=== PATIENT | male | born 1970 | race Caucasian/White ===

== ENCOUNTER → 2023-12-05 | Emergency (ER) | payer OTHER ==
--- OUTSIDE RECORDS SUMMARY | 2023-12-05 00:35 | XMS REPORT | Continuity of Care Document ---
Author Name Unknown Address [address] [facility] [address]. [address] [place] [address] [facility] thconnect Address [address] [facility]. [address] [place] [address] Care Team Providers Care Assisted Living Executive Director Name Role Phone Mireya Cuevas Primary Care Physician [phone] KEYONA PHILLIPS Attending Clinician Unavailable KIRSTY ROSA Attending Clinician Unavailable Sarah Rosa MD Attending Clinician [phone] SARAH ROSA Attending Clinician Unavailable Lisandra Al Attending Clinician [phone] Doctor Unassigned, Stewart Attending Clinician [facility] nav[facility], Sleep Attending Clinician Unavailable Inez Cho MD Attending Clinician [phone] INEZ CHO Attending Clinician Unavailable Cam Gould Attending Clinician [phone] [facility] Attending Clinician Unavailable CAM ARIAS Attending Clinician Unavailable MANOJ ARMENDARIZ Attending Clinician UnavailKirsty Stallings MD Attending Clinician [phone] LISANDRA BREWSTER Attending Clinician Unavailable Faculty, Pulmonary Attending Clinician UnavailANTONIO Farris Attending Clinician Unavailable Jeferson Ventura MD Attending Clinician [phone] Nitesh MATHEW, Antonio Attending Clinician [phone] Kraig FREEMAN, Phuong Booth Attending Clinician [phone] JOS WHELAN Attending Clinician Aye Whelan MD, Jos Stevens Attending Clinician + Sj MATHEW, Nicolás Brown Attending Clinician [phone] [facility]monary [facility] - Clear Attending Clini oumou [facility] Pulmonary Attending Clinician [phone] NANCY MOYER Attending Clinician Unavaila Nancy Blankenship Attending Clinician [phone] Elicia Buckley Attending Clinician [phone] Nirav Mann MD Attending Clinician [phone] NICOLÁS GUSTAFSON Attending Clinician Unavail able Jacqueline Baum RN Attending Clinician Unavailable NIRAV MANN Attending Clinician Unavailghulam Irene MD, Braeden Dan Attending Clinician [phone] Juan Rincon MD, Holli Attending Clinician [phone] Romeo MATHEW, Vicki Attending Clinician [phone] Alan MATHEW, Keyona Attending Clinician Unavailab tristan Tong MD, Flori Abbott Attending Clinician [phone] ELICIA BALLARD Attending Clinician Unavailabl KAYLA Marcum Attending Clinician Unavailable KAYLA WHEELER Attending Clinician Unavailable GERARDO LAWRENCEIN Trav Attending Clinician Unavailable Oziel Carreon Attending Clinician [phone] JAMARI LAUREN Attending Clinician Unavailable Only, [facility] Test Attending Clinician Unavailable Jamari Lauren MD Attending Clinician [phone] Fatuma Borges RN Attending Clinician Unavailable Tressa Decker RN Attending Clinician [phone] CATHERINE RANGEL Attending Clinician Unavail able Inge Norris DO Attending Clinician Felicia MOONEY, Catherine Samano Attending Clinician [phone] Trell Calles MD Attending Clinician [phone] INGE NORRIS Attending Clinician Unavailable Rosalba MATHEW, Chema Attending Clinician [phone] Only, Pcp [address] Test Attending Clinician Lis vailable JONATHAN SHANKS Attending Clinician Unavailable Dimitris FAMILY LAW ATTORNEYJonathan Attending Clinician [phone] Janice RN, Althea P Attending Clinician Unavaila ble RAMIRO CROSS Attending Clinician Unavailab MANOJ Eisenberg Attending Clinician Unavailghulam Evans MD, Padmini Ontiveros Attending Clinician [phone] P[facility]-Lab Attending Clinician Unavailable AIDA PLAZA Attending Clinician Unavailab tristan Tapia DO, Julio Schwarz Attending Clinician [phone] Nurse, John [facility] Attending Massimo coello Unavailable Samuel Perez MD Attending Clinician [phone] SAMUEL PEREZ Attending Clinician Unavailable Christopher APODACA, Vivian Attending Clinician Unavailable Only, Pcp Test Attending Clinician Unavailable FLORI TONG Attending Clinician Unavailable Only, [facility] Test Attending Clinician Unavailable MACY PROCTOR Attending Clinician Unavailable Macy Proctor MD Attending Clinician [phone] Skyler Prieto MD Attending Clinician [phone] SKYLER PRIETO Attending Clinician Unavailable Annabelle Rabago LCSW Attending Clinician [phone] KEYONA PHILLIPS Admitting Clinician Unavailable KIRSTY ROSA Admitting Clinician Unavailable NIRAV MANN Admitting Clinician UnavailNirav Malloy MD Admitting Clinician [phone] OZIEL LAWRENCE Admitting Clinician Unavailable INGE NORRIS Admitting Clinician Unavailable NANCY MOYER Admitting Clinician Unavaila alma Payers Payer Name Policy Type Policy Number Effective Date Expirati on Date Source [facility] [id number] 2016 00:00:00 Problems Condition Name Condition Details Condition Category Status Onset Date Resolution Date Last Treatment Date Treating Clinician Comments Source Acute respirator y distress Acute respirator y distress Disease Active 2021-10 0 00:[facility] STEMI (ST elevation myocardial infarction ) STEMI (ST elevation myocardial infarction ) Disease Active 01-08 00:00: 00 [facility] Morbid obesity with body mass index of 40.0-49.9 Morbid obesity with body mass index of 40.0-49.9 Disease Active 01-08 00:00: 00 [facility] Posterior subcapsula r age-relate d cataract of left eye Posterior subcapsula r age-relate d cataract of left eye Disease Active 04-17 00:00: 00 Overview: Formattin g of this note might be different from the original. Added automatic ally from request for surgery [id number] [facility] Posterior subcapsula r age-relate d cataract of both eyes Posterior subcapsula r age-relate d cataract of both eyes Disease Active 03-06 00:00: 00 Overview: Formattin g of this note might be different from the original. Added automatic ally from request for surgery [id number] [facility] Asthma exacerbati on Asthma exacerbati on Disease Active 2016-10 00:00: 00 [facility] Benign essential HTN Benign essential HTN Disease Active 02-24 00:00: 00 [facility] ROBSON (obstructi ve sleep apnea) ROBSON (obstructi ve sleep apnea) Disease Active 02-24 00:00: 00 [facility] Tobacco user Tobacco user Disease Active 02-24 00:00: 00 [facility] Allergies, Adverse Reactions, Alerts Allergy Name Allergy Type Status Severity Reaction(s) Onset Date Inactive Date Treating Clinician Comments Source NO KNOWN ALLERGIE S Drug Class Active [facility] Social History Social Habit Start Date Stop Date Quantity Comments Source [facility] intake 2023-09-27 00:00:00 2023-09-27 00:00:00 .57 /d [facility] History of Social function 2023-08-16 00:00:2023-08-16 00:00:00 [facility] Exposure to SARS-CoV-2 (event) 2022-07-24 00:00:00 2022-08-03 16:20:00 Not sure [facility] History SDOH Financial 2022-07-21 00:00:00 2022-07-21 00:00:00 1 [facility] History SDOH Food Worry 2022-07-21 00:00:00 2022-07-21 00:00:00 3 [facility] History SDOH Food Scarcity 2022-07-21 00:00:00 2022-07-21 00:00:00 1 [facility] History SDOH Transport Med 2022-07-21 00:00:00 2022-07-21 00:00:00 2 [facility] History SDOH Transport Non-Med 2022-07-21 00:00:00 2022-07-21 00:00:00 2 [facility] Cigarettes smoked current (pack per day) - Reported 2022-06-23 00:00:00 2022-06-23 00:00:00 [facility] Tobacco use and exposure 2022-06-23 00:00:00 2022-06-23 00:00:00 Smokeless tobacco non-user [facility] History of tobacco use 2017-10-04 00:00:00 Cigarette Smoker [facility] Sex Assigned At 1970 00:00:00 1970 00:00:00 [facility] Smoking Status Start Date Stop Date Source Ex-smoker 2022-06-23 00:00:00 2022-06-23 00:00:00 [facility] Medications Ordered Medication Name Filled Medication Name Start Date Stop Date Current Medication? Ordering Clinician Indication Dosage Frequency Signature (SIG) Comments Components Source amLODIPine 10 mg tablet 2022-10 00:00: 00 Yes [id number] 10mg Take 1 tablet by mouth in the morning. [facility] amLODIPine 10 mg tablet 2022-10 00:00: 00 Yes [id number] 10mg Take 1 tablet by mouth in the morning. [facility] amLODIPine 10 mg tablet 2022-10 00:00: 00 Yes [id number] 10mg Take 1 tablet by mouth in the morning. [facility] amLODIPine 10 mg tablet 2022-10 00:00: 00 Yes [id number] 10mg Take 1 tablet by mouth in the morning. [facility] amLODIPine 10 mg tablet 2022-10 00:00: 00 Yes [id number] 10mg Take 1 tablet by mouth in the morning. [facility] amLODIPine 10 mg tablet 2022-10 00:00: 00 Yes [id number] 10mg Take 1 tablet by mouth in the morning. [facility] amLODIPine 10 mg tablet 2022-10 00:00: 00 Yes [id number] 10mg Take 1 tablet by mouth in the morning. [facility] amLODIPine 10 mg tablet 2022-10 00:00: 00 Yes [id number] 10mg Take 1 tablet by mouth in the morning. [facility] amLODIPine 10 mg tablet 2022-10 00:00: 00 Yes [id number] 10mg Take 1 tablet by mouth in the morning. [facility] amLODIPine 10 mg tablet 2022-10 00:00: 00 Yes [id number] 10mg Take 1 tablet by mouth in the morning. [facility] amLODIPine 10 mg tablet 2022-10 00:00: 00 Yes [id number] 10mg Take 1 tablet by mouth in the morning. [facility] amLODIPine 5 mg tablet 2022-10 00:00: 00 Yes [id number] 5mg Take 1 tablet by mouth in the morning and 1 tablet in the evening. [facility] Blood Pressure Kit-Extra Large Kit 2022-10 00:00: 00 Yes [id number] Use as directed [facility] furosemide 20 mg tablet 2022-10 00:00: 00 Yes [id number] 20mg Take 1 tablet by mouth every morning and evening. [facility] amLODIPine 5 mg tablet 2022-10 00:00: 00 Yes [id number] 5mg Take 1 tablet by mouth in the morning and 1 tablet in the evening. [facility] Blood Pressure Kit-Extra Large Kit 2022-1018 00:00: 00 Yes [id number] Use as directed [facility] furosemide 20 mg tablet 2022-1 18 00:00: 00 Yes [id number] 20mg Take 1 tablet by mouth every morning and evening. [facility] Blood Pressure Kit-Extra Large Kit 2022-1018 00:00: 00 Yes [id number] Use as directed [facility] furosemide 20 mg tablet 2022-18 00:00: 00 Yes [id number] 20mg Take 1 tablet by mouth every morning and evening. [facility] Blood Pressure Kit-Extra Large Kit 2022-11-28 00:00: 00 Yes [id number] Use as directed [facility] furosemide 20 mg tablet 2022-10 00:00: 00 Yes [id number] 20mg Take 1 tablet by mouth every morning and evening. [facility] Blood Pressure Kit-Extra Large Kit 2022-11-28 00:00: 00 Yes [id number] Use as directed [facility] furosemide 20 mg tablet 2022-11-28 00:00: 00 Yes [id number] 20mg Take 1 tablet by mouth every morning and evening. [facility] Blood Pressure Kit-Extra Large Kit 2022-10 00:00: 00 Yes [id number] Use as directed [facility] furosemide 20 mg tablet 2022-1018 00:00: 00 Yes [id number] 20mg Take 1 tablet by mouth every morning and evening. [facility] Blood Pressure Kit-Extra Large Kit 2022-18 00:00: 00 Yes [id number] Use as directed [facility] furosemide 20 mg tablet 2022-1 18 00:00: 00 Yes [id number] 20mg Take 1 tablet by mouth every morning and evening. [facility] Blood Pressure Kit-Extra Large Kit 2022-18 00:00: 00 Yes [id number] Use as directed [facility] furosemide 20 mg tablet 2022-1 18 00:00: 00 Yes [id number] 20mg Take 1 tablet by mouth every morning and evening. [facility] Blood Pressure Kit-Extra Large Kit 2022-1 18 00:00: 00 Yes [id number] Use as directed [facility] furosemide 20 mg tablet 2022-1 18 00:00: 00 Yes [id number] 20mg Take 1 tablet by mouth every morning and evening. [facility] Blood Pressure Kit-Extra Large Kit 2022-18 00:00: 00 Yes [id number] Use as directed [facility] furosemide 20 mg tablet 2022-11-28 00:00: 00 Yes [id number] 20mg Take 1 tablet by mouth every morning and evening. [facility] Blood Pressure Kit-Extra Large Kit 2022-11-28 00:00: 00 Yes [id number] Use as directed [facility] furosemide 20 mg tablet 2022-11-28 00:00: 00 Yes [id number] 20mg Take 1 tablet by mouth every morning and evening. [facility] Blood Pressure Kit-Extra Large Kit 2022-11-28 00:00: 00 Yes [id number] Use as directed [facility] furosemide 20 mg tablet 2022-11-28 00:00: 00 Yes [id number] 20mg Take 1 tablet by mouth every morning and evening. [facility] 20[facility]-10 00:00: 00 Yes [id number] Use as directed [facility] tablet 2022-11-28 00:00: 00 Yes [id number] 20mg Take 1 tablet by mouth every morning and evening. [facility] Blood Pressure Kit-Extra Large Kit 2022-11-28 00:00: 00 Yes [id number] Use as directed [facility] furosemide 20 mg tablet 2022-18 00:00: 00 Yes [id number] 20mg Take 1 tablet by mouth every morning and evening. [facility] Blood Pressure Kit-Extra Large Kit 2022-18 00:00: 00 Yes [id number] Use as directed [facility] furosemide 20 mg tablet 2022-18 00:00: 00 Yes [id number] 20mg Take 1 tablet by mouth every morning and evening. [facility] Blood Pressure Kit-Extra Large Kit 2022-10 00:00: 00 Yes [id number] Use as directed [facility] furosemide 20 mg tablet 2022-10 00:00: 00 Yes [id number] 20mg Take 1 tablet by mouth every morning and evening. [facility] amLODIPine 5 mg tablet 2022-10 00:00: 00 09-29 00:00 :00 No [id number] 5mg Take 1 tablet by mouth in the morning and 1 tablet in the evening. [facility] amLODIPine 5 mg tablet 2022-10 00:00: 00 09-29 00:00 :00 No [id number] 5mg Take 1 tablet by mouth in the morning and 1 tablet in the evening. [facility] amLODIPine 5 mg tablet 2022-10 00:00: 00 09-29 00:00 :00 No [id number] 5mg Take 1 tablet by mouth in the morning and 1 tablet in the evening. [facility] perflutren lipid microsphere s (DEFINITY) injection 2 mL 2022-10 20:45: 00 09-09 20:39 :00 No [id number] 2mL 2 mL, IV Push, ONCE, 1 dose, On Aleyda 09/09/23 at 1445, Routine [facility] amLODIPine 10 mg tablet 2022-10 00:00: 00 Yes [id number] 5mg Take 0.5 tablets by mouth in the morning and 0.5 tablets in the evening. [facility] amLODIPine 10 mg tablet 2022-10 00:00: 00 Yes [id number] 5mg Take 0.5 tablets by mouth in the morning and 0.5 tablets in the evening. [facility] amLODIPine 10 mg tablet 2022-10 00:00: 00 Yes [id number] 5mg Take 0.5 tablets by mouth in the morning and 0.5 tablets in the evening. [facility] amLODIPine 10 mg tablet 2022-10 00:00: 00 Yes [id number] 5mg Take 0.5 tablets by mouth in the morning and 0.5 tablets in the evening. [facility] amLODIPine 10 mg tablet 2022-10 00:00: 00 Yes [id number] 5mg Take 0.5 tablets by mouth in the morning and 0.5 tablets in the evening. [facility] amLODIPine 10 mg tablet 2022-10 00:00: 00 Yes [id number] 5mg Take 0.5 tablets by mouth in the morning and 0.5 tablets in the evening. [facility] amLODIPine 10 mg tablet 2022-10 00:00: 00 Yes [id number] 5mg Take 0.5 tablets by mouth in the morning and 0.5 tablets in the evening. [facility] amLODIPine 10 mg tablet 2022-10 00:00: 00 09-27 00:00 :00 No [id number] 5mg Take 0.5 tablets by mouth in the morning and 0.5 tablets in the evening. [facility] amLODIPine 10 mg tablet 2022-10 00:00: 00 09-27 00:00 :00 No [id number] 5mg Take 0.5 tablets by mouth in the morning and 0.5 tablets in the evening. [facility] carvediloL 25 mg tablet 2022-10 00:00: 00 Yes [id number] 25mg Take 1 tablet by mouth in the morning and 1 tablet in the evening. Take with meals. [facility] furosemide 20 mg tablet 2022-10 00:00: 00 Yes [id number] 20mg Take 1 tablet by mouth every morning and evening. [facility] clopidogreL (PLAVIX) 75 mg tablet 2022-10 00:00: 00 Yes [id number] 75mg Take 1 tablet by mouth in the morning. [facility] aspirin 81 mg EC tablet 2022-10 00:00: 00 Yes [id number] 81mg Take 1 tablet by mouth in the morning. [facility] carvediloL 25 mg tablet 2022-10 00:00: 00 Yes [id number] 25mg Take 1 tablet by mouth in the morning and 1 tablet in the evening. Take with meals. [facility] furosemide 20 mg tablet 2022-10 00:00: 00 Yes [id number] 20mg Take 1 tablet by mouth every morning and evening. [facility] clopidogreL (PLAVIX) 75 mg tablet 2022-10 00:00: 00 Yes [id number] 75mg Take 1 tablet by mouth in the morning. [facility] aspirin 81 mg EC tablet 2022-10 00:00: 00 Yes [id number] 81mg Take 1 tablet by mouth in the morning. [facility] carvediloL 25 mg tablet 2022-10 00:00: 00 Yes [id number] 25mg Take 1 tablet by mouth in the morning and 1 tablet in the evening. Take with meals. [facility] furosemide 20 mg tablet 2022-10 00:00: 00 Yes [id number] 20mg Take 1 tablet by mouth every morning and evening. [facility] clopidogreL (PLAVIX) 75 mg tablet 2022-10 00:00: 00 Yes [id number] 75mg Take 1 tablet by mouth in the morning. [facility] aspirin 81 mg EC tablet 2022-10 00:00: 00 Yes [id number] 81mg Take 1 tablet by mouth in the morning. [facility] carvediloL 25 mg tablet 2022-10 00:00: 00 Yes [id number] 25mg Take 1 tablet by mouth in the morning and 1 tablet in the evening. Take with meals. [facility] furosemide 20 mg tablet 2022-10 00:00: 00 Yes [id number] 20mg Take 1 tablet by mouth every morning and evening. [facility] clopidogreL (PLAVIX) 75 mg tablet 2022-10 00:00: 00 Yes [id number] 75mg Take 1 tablet by mouth in the morning. [facility] aspirin 81 mg EC tablet 2022-10 00:00: 00 Yes [id number] 81mg Take 1 tablet by mouth in the morning. [facility] carvediloL 25 mg tablet 2022-10 00:00: 00 Yes [id number] 25mg Take 1 tablet by mouth in the morning and 1 tablet in the evening. Take with meals. [facility] furosemide 20 mg tablet 2022-10 00:00: 00 Yes [id number] 20mg Take 1 tablet by mouth every morning and evening. [facility] clopidogreL (PLAVIX) 75 mg tablet 2022-10 00:00: 00 Yes [id number] 75mg Take 1 tablet by mouth in the morning. [facility] aspirin 81 mg EC tablet 2022-10 00:00: 00 Yes [id number] 81mg Take 1 tablet by mouth in the morning. [facility] carvediloL 25 mg tablet 2022-10 00:00: 00 Yes [id number] 25mg Take 1 tablet by mouth in the morning and 1 tablet in the evening. Take with meals. [facility] furosemide 20 mg tablet 2022-10 00:00: 00 Yes [id number] 20mg Take 1 tablet by mouth every morning and evening. [facility] clopidogreL (PLAVIX) 75 mg tablet 2022-10 00:00: 00 Yes [id number] 75mg Take 1 tablet by mouth in the morning. [facility] aspirin 81 mg EC tablet 2022-10 00:00: 00 Yes [id number] 81mg Take 1 tablet by mouth in the morning. [facility] carvediloL 25 mg tablet 2022-10 00:00: 00 Yes [id number] 25mg Take 1 tablet by mouth in the morning and 1 tablet in the evening. Take with meals. [facility] furosemide 20 mg tablet 2022-10 00:00: 00 Yes [id number] 20mg Take 1 tablet by mouth every morning and evening. [facility] clopidogreL (PLAVIX) 75 mg tablet 2022-10 00:00: 00 Yes [id number] 75mg Take 1 tablet by mouth in the morning. [facility] aspirin 81 mg EC tablet 2022-10 00:00: 00 Yes [id number] 81mg Take 1 tablet by mouth in the morning. [facility] carvediloL 25 mg tablet 2022-10 00:00: 00 Yes [id number] 25mg Take 1 tablet by mouth in the morning and 1 tablet in the evening. Take with meals. [facility] furosemide 20 mg tablet 2022-10 00:00: 00 Yes [id number] 20mg Take 1 tablet by mouth every morning and evening. [facility] clopidogreL (PLAVIX) 75 mg tablet 2022-10 00:00: 00 Yes [id number] 75mg Take 1 tablet by mouth in the morning. [facility] aspirin 81 mg EC tablet 2022-10 00:00: 00 Yes [id number] 81mg Take 1 tablet by mouth in the morning. [facility] carvediloL 25 mg tablet 2022-10 00:00: 00 Yes [id number] 25mg Take 1 tablet by mouth in the morning and 1 tablet in the evening. Take with meals. [facility] furosemide 20 mg tablet 2022-10 00:00: 00 Yes [id number] 20mg Take 1 tablet by mouth every morning and evening. [facility] clopidogreL (PLAVIX) 75 mg tablet 2022-10 00:00: 00 Yes [id number] 75mg Take 1 tablet by mouth in the morning. [facility] aspirin 81 mg EC tablet 2022-10 00:00: 00 Yes [id number] 81mg Take 1 tablet by mouth in the morning. [facility] carvediloL 25 mg tablet 2022-10 00:00: 00 Yes [id number] 25mg Take 1 tablet by mouth in the morning and 1 tablet in the evening. Take with meals. [facility] furosemide 20 mg tablet 2022-10 00:00: 00 Yes [id number] 20mg Take 1 tablet by mouth every morning and evening. [facility] clopidogreL (PLAVIX) 75 mg tablet 2022-10 00:00: 00 Yes [id number] 75mg Take 1 tablet by mouth in the morning. [facility] aspirin 81 mg EC tablet 2022-10 00:00: 00 Yes [id number] 81mg Take 1 tablet by mouth in the morning. [facility] carvediloL 25 mg tablet 2022-10 00:00: 00 Yes [id number] 25mg Take 1 tablet by mouth in the morning and 1 tablet in the evening. Take with meals. [facility] furosemide 20 mg tablet 2022-10 00:00: 00 Yes [id number] 20mg Take 1 tablet by mouth every morning and evening. [facility] clopidogreL (PLAVIX) 75 mg tablet 2022-10 00:00: 00 Yes [id number] 75mg Take 1 tablet by mouth in the morning. [facility] aspirin 81 mg EC tablet 2022-10 00:00: 00 Yes [id number] 81mg Take 1 tablet by mouth in the morning. [facility] carvediloL 25 mg tablet 2022-10 00:00: 00 Yes [id number] 25mg Take 1 tablet by mouth in the morning and 1 tablet in the evening. Take with meals. [facility] clopidogreL (PLAVIX) 75 mg tablet 2022-10 00:00: 00 Yes [id number] 75mg Take 1 tablet by mouth in the morning. [facility] aspirin 81 mg EC tablet 2022-10 00:00: 00 Yes [id number] 81mg Take 1 tablet by mouth in the morning. [facility] carvediloL 25 mg tablet 2022-10 00:00: 00 Yes [id number] 25mg Take 1 tablet by mouth in the morning and 1 tablet in the evening. Take with meals. [facility] clopidogreL (PLAVIX) 75 mg tablet 2022-10 00:00: 00 Yes [id number] 75mg Take 1 tablet by mouth in the morning. [facility] aspirin 81 mg EC tablet 2022-10 00:00: 00 Yes [id number] 81mg Take 1 tablet by mouth in the morning. [facility] carvediloL 25 mg tablet 2022-10 00:00: 00 Yes [id number] 25mg Take 1 tablet by mouth in the morning and 1 tablet in the evening. Take with meals. [facility] clopidogreL (PLAVIX) 75 mg tablet 2022-10 00:00: 00 Yes [id number] 75mg Take 1 tablet by mouth in the morning. [facility] aspirin 81 mg EC tablet 2022-10 00:00: 00 Yes [id number] 81mg Take 1 tablet by mouth in the morning. [facility] carvediloL 25 mg tablet 2022-10 00:00: 00 Yes [id number] 25mg Take 1 tablet by mouth in the morning and 1 tablet in the evening. Take with meals. [facility] clopidogreL (PLAVIX) 75 mg tablet 2022-10 00:00: 00 Yes [id number] 75mg Take 1 tablet by mouth in the morning. [facility] aspirin 81 mg EC tablet 2022-10 00:00: 00 Yes [id number] 81mg Take 1 tablet by mouth in the morning. [facility] carvediloL 25 mg tablet 2022-10 00:00: 00 Yes [id number] 25mg Take 1 tablet by mouth in the morning and 1 tablet in the evening. Take with meals. [facility] clopidogreL (PLAVIX) 75 mg tablet 2022-10 00:00: 00 Yes [id number] 75mg Take 1 tablet by mouth in the morning. [facility] aspirin 81 mg EC tablet 2022-10 00:00: 00 Yes [id number] 81mg Take 1 tablet by mouth in the morning. [facility] carvediloL 25 mg tablet 2022-10 00:00: 00 Yes [id number] 25mg Take 1 tablet by mouth in the morning and 1 tablet in the evening. Take with meals. [facility] clopidogreL (PLAVIX) 75 mg tablet 2022-10 00:00: 00 Yes [id number] 75mg Take 1 tablet by mouth in the morning. [facility] aspirin 81 mg EC tablet 2022-10 00:00: 00 Yes [id number] 81mg Take 1 tablet by mouth in the morning. [facility] carvediloL 25 mg tablet 2022-10 00:00: 00 Yes [id number] 25mg Take 1 tablet by mouth in the morning and 1 tablet in the evening. Take with meals. [facility] clopidogreL (PLAVIX) 75 mg tablet 2022-10 00:00: 00 Yes [id number] 75mg Take 1 tablet by mouth in the morning. [facility] aspirin 81 mg EC tablet 2022-10 00:00: 00 Yes [id number] 81mg Take 1 tablet by mouth in the morning. [facility] carvediloL 25 mg tablet 2022-10 00:00: 00 Yes [id number] 25mg Take 1 tablet by mouth in the morning and 1 tablet in the evening. Take with meals. [facility] clopidogreL (PLAVIX) 75 mg tablet 2022-10 00:00: 00 Yes [id number] 75mg Take 1 tablet by mouth in the morning. [facility] aspirin 81 mg EC tablet 2022-10 00:00: 00 Yes [id number] 81mg Take 1 tablet by mouth in the morning. [facility] carvediloL 25 mg tablet 2022-10 00:00: 00 Yes [id number] 25mg Take 1 tablet by mouth in the morning and 1 tablet in the evening. Take with meals. [facility] clopidogreL (PLAVIX) 75 mg tablet 2022-10 00:00: 00 Yes [id number] 75mg Take 1 tablet by mouth in the morning. [facility] aspirin 81 mg EC tablet 2022-10 00:00: 00 Yes [id number] 81mg Take 1 tablet by mouth in the morning. [facility] carvediloL 25 mg tablet 2022-10 00:00: 00 Yes [id number] 25mg Take 1 tablet by mouth in the morning and 1 tablet in the evening. Take with meals. [facility] clopidogreL (PLAVIX) 75 mg tablet 2022-10 00:00: 00 Yes [id number] 75mg Take 1 tablet by mouth in the morning. [facility] aspirin 81 mg EC tablet 2022-10 00:00: 00 Yes [id number] 81mg Take 1 tablet by mouth in the morning. [facility] carvediloL 25 mg tablet 2022-10 00:00: 00 Yes [id number] 25mg Take 1 tablet by mouth in the morning and 1 tablet in the evening. Take with meals. [facility] clopidogreL (PLAVIX) 75 mg tablet 2022-10 00:00: 00 Yes [id number] 75mg Take 1 tablet by mouth in the morning. [facility] aspirin 81 mg EC tablet 2022-10 00:00: 00 Yes [id number] 81mg Take 1 tablet by mouth in the morning. [facility] carvediloL 25 mg tablet 2022-10 00:00: 00 Yes [id number] 25mg Take 1 tablet by mouth in the morning and 1 tablet in the evening. Take with meals. [facility] clopidogreL (PLAVIX) 75 mg tablet 2022-10 00:00: 00 Yes [id number] 75mg Take 1 tablet by mouth in the morning. [facility] aspirin 81 mg EC tablet 2022-10 00:00: 00 Yes [id number] 81mg Take 1 tablet by mouth in the morning. [facility] carvediloL 25 mg tablet 2022-10 00:00: 00 Yes [id number] 25mg Take 1 tablet by mouth in the morning and 1 tablet in the evening. Take with meals. [facility] clopidogreL (PLAVIX) 75 mg tablet 2022-10 00:00: 00 Yes [id number] 75mg Take 1 tablet by mouth in the morning. [facility] aspirin 81 mg EC tablet 2022-10 00:00: 00 Yes [id number] 81mg Take 1 tablet by mouth in the morning. [facility] carvediloL 25 mg tablet 2022-10 00:00: 00 Yes [id number] 25mg Take 1 tablet by mouth in the morning and 1 tablet in the evening. Take with meals. [facility] clopidogreL (PLAVIX) 75 mg tablet 2022-10 00:00: 00 Yes [id number] 75mg Take 1 tablet by mouth in the morning. [facility] aspirin 81 mg EC tablet 2022-10 00:00: 00 Yes [id number] 81mg Take 1 tablet by mouth in the morning. [facility] carvediloL 25 mg tablet 2022-10 00:00: 00 Yes [id number] 25mg Take 1 tablet by mouth in the morning and 1 tablet in the evening. Take with meals. [facility] clopidogreL (PLAVIX) 75 mg tablet 2022-10 00:00: 00 Yes [id number] 75mg Take 1 tablet by mouth in the morning. [facility] aspirin 81 mg EC tablet 2022-10 00:00: 00 Yes [id number] 81mg Take 1 tablet by mouth in the morning. [facility] carvediloL 25 mg tablet 2022-10 00:00: 00 Yes [id number] 25mg Take 1 tablet by mouth in the morning and 1 tablet in the evening. Take with meals. [facility] clopidogreL (PLAVIX) 75 mg tablet 2022-10 00:00: 00 Yes [id number] 75mg Take 1 tablet by mouth in the morning. [facility] aspirin 81 mg EC tablet 2022-10 00:00: 00 Yes [id number] 81mg Take 1 tablet by mouth in the morning. [facility] furosemide 20 mg tablet 2022-10 00:00: 00 09-27 00:00 :00 No [id number] 20mg Take 1 tablet by mouth every morning and evening. [facility] furosemide 20 mg tablet 2022-10 00:00: 00 09-27 00:00 :00 No [id number] 20mg Take 1 tablet by mouth every morning and evening. [facility] dextran 70/hypromel lose (ARTIFICIAL TEARS, PF, OPHTHALMIC) 2022-10 14:25: 43 08-13 00:00 :[address] in each eye as needed. [facility] dextran 70/hypromel lose (ARTIFICIAL TEARS, PF, OPHTHALMIC) 2022-10 14:25: 43 08-13 00:00 :[address] in each eye as needed. [facility] CARVEDILOL ORAL 2022-10 14:21: 48 08-13 00:00 :00 No 25mg Take 25 mg by mouth. [facility] CARVEDILOL ORAL 2022-10 14:21: 48 08-13 00:00 :00 No 25mg Take 25 mg by mouth. [facility] furosemide 20 mg tablet 2022-10 00:00: 00 Yes [id number] 20mg Take 1 tablet by mouth every morning and evening. [facility] aspirin 81 mg EC tablet 2022-10 00:00: 00 Yes [id number] 81mg Take 1 tablet by mouth in the morning. [facility] rosuvastati n 40 mg tablet 2022-10 00:00: 00 Yes [id number] 40mg Take 1 tablet by mouth at bedtime. [facility] spironolact one (ALDACTONE) 25 mg tablet 2022-10 00:00: 00 Yes [id number] 25mg Take 1 tablet by mouth in the morning. [facility] carvediloL 25 mg tablet 2022-10 00:00: 00 Yes 25mg Take 1 tablet by mouth in the morning and 1 tablet in the evening. Take with meals. [facility] amLODIPine 5 mg tablet 2022-10 00:00: 00 Yes [id number] 5mg Take 1 tablet by mouth in the morning and 1 tablet in the evening. [facility] furosemide 20 mg tablet 2022-10 00:00: 00 Yes [id number] 20mg Take 1 tablet by mouth every morning and evening. [facility] aspirin 81 mg EC tablet 2022-10 00:00: 00 Yes [id number] 81mg Take 1 tablet by mouth in the morning. [facility] rosuvastati n 40 mg tablet 2022-10 00:00: 00 Yes [id number] 40mg Take 1 tablet by mouth at bedtime. [facility] spironolact one (ALDACTONE) 25 mg tablet 2022-10 00:00: 00 Yes [id number] 25mg Take 1 tablet by mouth in the morning. [facility] carvediloL 25 mg tablet 2022-10 00:00: 00 Yes 25mg Take 1 tablet by mouth in the morning and 1 tablet in the evening. Take with meals. [facility] amLODIPine 5 mg tablet 2022-10 00:00: 00 Yes [id number] 5mg Take 1 tablet by mouth in the morning and 1 tablet in the evening. [facility] furosemide 20 mg tablet 2022-10 00:00: 00 Yes [id number] 20mg Take 1 tablet by mouth every morning and evening. [facility] aspirin 81 mg EC tablet 2022-10 00:00: 00 Yes [id number] 81mg Take 1 tablet by mouth in the morning. [facility] rosuvastati n 40 mg tablet 2022-10 00:00: 00 Yes [id number] 40mg Take 1 tablet by mouth at bedtime. [facility] spironolact one (ALDACTONE) 25 mg tablet 2022-10 00:00: 00 Yes [id number] 25mg Take 1 tablet by mouth in the morning. [facility] carvediloL 25 mg tablet 2022-10 00:00: 00 Yes 25mg Take 1 tablet by mouth in the morning and 1 tablet in the evening. Take with meals. [facility] amLODIPine 5 mg tablet 2022-10 00:00: 00 Yes [id number] 5mg Take 1 tablet by mouth in the morning and 1 tablet in the evening. [facility] rosuvastati n 40 mg tablet 2022-10 00:00: 00 Yes [id number] 40mg Take 1 tablet by mouth at bedtime. [facility] spironolact one (ALDACTONE) 25 mg tablet 2022-10 00:00: 00 Yes [id number] 25mg Take 1 tablet by mouth in the morning. [facility] amLODIPine 5 mg tablet 2022-10 00:00: 00 Yes [id number] 5mg Take 1 tablet by mouth in the morning and 1 tablet in the evening. [facility] rosuvastati n 40 mg tablet 2022-10 00:00: 00 Yes [id number] 40mg Take 1 tablet by mouth at bedtime. [facility] spironolact one (ALDACTONE) 25 mg tablet 2022-10 00:00: 00 Yes [id number] 25mg Take 1 tablet by mouth in the morning. [facility] amLODIPine 5 mg tablet 2022-10 00:00: 00 Yes [id number] 5mg Take 1 tablet by mouth in the morning and 1 tablet in the evening. [facility] rosuvastati n 40 mg tablet 2022-10 00:00: 00 Yes [id number] 40mg Take 1 tablet by mouth at bedtime. [facility] spironolact one (ALDACTONE) 25 mg tablet 2022-10 00:00: 00 Yes [id number] 25mg Take 1 tablet by mouth in the morning. [facility] amLODIPine 5 mg tablet 2022-10 00:00: 00 Yes [id number] 5mg Take 1 tablet by mouth in the morning and 1 tablet in the evening. [facility] rosuvastati n 40 mg tablet 2022-10 00:00: 00 Yes [id number] 40mg Take 1 tablet by mouth at bedtime. [facility] spironolact one (ALDACTONE) 25 mg tablet 2022-10 00:00: 00 Yes [id number] 25mg Take 1 tablet by mouth in the morning. [facility] amLODIPine 5 mg tablet 2022-10 00:00: 00 Yes [id number] 5mg Take 1 tablet by mouth in the morning and 1 tablet in the evening. [facility] rosuvastati n 40 mg tablet 2022-10 00:00: 00 Yes [id number] 40mg Take 1 tablet by mouth at bedtime. [facility] spironolact one (ALDACTONE) 25 mg tablet 2022-10 00:00: 00 Yes [id number] 25mg Take 1 tablet by mouth in the morning. [facility] rosuvastati n 40 mg tablet 2022-10 00:00: 00 Yes [id number] 40mg Take 1 tablet by mouth at bedtime. [facility] spironolact one (ALDACTONE) 25 mg tablet 2022-10 00:00: 00 Yes [id number] 25mg Take 1 tablet by mouth in the morning. [facility] rosuvastati n 40 mg tablet 2022-10 00:00: 00 Yes [id number] 40mg Take 1 tablet by mouth at bedtime. [facility] spironolact one (ALDACTONE) 25 mg tablet 2022-10 00:00: 00 Yes [id number] 25mg Take 1 tablet by mouth in the morning. [facility] rosuvastati n 40 mg tablet 2022-10 00:00: 00 Yes [id number] 40mg Take 1 tablet by mouth at bedtime. [facility] spironolact one (ALDACTONE) 25 mg tablet 2022-10 00:00: 00 Yes [id number] 25mg Take 1 tablet by mouth in the morning. [facility] rosuvastati n 40 mg tablet 2022-10 00:00: 00 Yes [id number] 40mg Take 1 tablet by mouth at bedtime. [facility] spironolact one (ALDACTONE) 25 mg tablet 2022-10 00:00: 00 Yes [id number] 25mg Take 1 tablet by mouth in the morning. [facility] rosuvastati n 40 mg tablet 2022-10 00:00: 00 Yes [id number] 40mg Take 1 tablet by mouth at bedtime. [facility] spironolact one (ALDACTONE) 25 mg tablet 2022-10 00:00: 00 Yes [id number] 25mg Take 1 tablet by mouth in the morning. [facility] rosuvastati n 40 mg tablet 2022-10 00:00: 00 Yes [id number] 40mg Take 1 tablet by mouth at bedtime. [facility] spironolact one (ALDACTONE) 25 mg tablet 2022-10 00:00: 00 Yes [id number] 25mg Take 1 tablet by mouth in the morning. [facility] rosuvastati n 40 mg tablet 2022-10 00:00: 00 Yes [id number] 40mg Take 1 tablet by mouth at bedtime. [facility] spironolact one (ALDACTONE) 25 mg tablet 2022-10 00:00: 00 Yes [id number] 25mg Take 1 tablet by mouth in the morning. [facility] rosuvastati n 40 mg tablet 2022-10 00:00: 00 Yes [id number] 40mg Take 1 tablet by mouth at bedtime. [facility] spironolact one (ALDACTONE) 25 mg tablet 2022-10 00:00: 00 Yes [id number] 25mg Take 1 tablet by mouth in the morning. [facility] rosuvastati n 40 mg tablet 2022-10 00:00: 00 Yes [id number] 40mg Take 1 tablet by mouth at bedtime. [facility] spironolact one (ALDACTONE) 25 mg tablet 2022-10 00:00: 00 Yes [id number] 25mg Take 1 tablet by mouth in the morning. [facility] rosuvastati n 40 mg tablet 2022-10 00:00: 00 Yes [id number] 40mg Take 1 tablet by mouth at bedtime. [facility] spironolact one (ALDACTONE) 25 mg tablet 2022-10 00:00: 00 Yes [id number] 25mg Take 1 tablet by mouth in the morning. [facility] rosuvastati n 40 mg tablet 2022-10 00:00: 00 Yes [id number] 40mg Take 1 tablet by mouth at bedtime. [facility] spironolact one (ALDACTONE) 25 mg tablet 2022-10 00:00: 00 Yes [id number] 25mg Take 1 tablet by mouth in the morning. [facility] rosuvastati n 40 mg tablet 2022-10 00:00: 00 Yes [id number] 40mg Take 1 tablet by mouth at bedtime. [facility] spironolact one (ALDACTONE) 25 mg tablet 2022-10 00:00: 00 Yes [id number] 25mg Take 1 tablet by mouth in the morning. [facility] rosuvastati n 40 mg tablet 2022-10 00:00: 00 Yes [id number] 40mg Take 1 tablet by mouth at bedtime. [facility] spironolact one (ALDACTONE) 25 mg tablet 2022-10 00:00: 00 Yes [id number] 25mg Take 1 tablet by mouth in the morning. [facility] rosuvastati n 40 mg tablet 2022-10 00:00: 00 Yes [id number] 40mg Take 1 tablet by mouth at bedtime. [facility] spironolact one (ALDACTONE) 25 mg tablet 2022-10 00:00: 00 Yes [id number] 25mg Take 1 tablet by mouth in the morning. [facility] rosuvastati n 40 mg tablet 2022-10 00:00: 00 Yes [id number] 40mg Take 1 tablet by mouth at bedtime. [facility] spironolact one (ALDACTONE) 25 mg tablet 2022-10 00:00: 00 Yes [id number] 25mg Take 1 tablet by mouth in the morning. [facility] rosuvastati n 40 mg tablet 2022-10 00:00: 00 Yes [id number] 40mg Take 1 tablet by mouth at bedtime. [facility] spironolact one (ALDACTONE) 25 mg tablet 2022-10 00:00: 00 Yes [id number] 25mg Take 1 tablet by mouth in the morning. [facility] rosuvastati n 40 mg tablet 2022-10 00:00: 00 Yes [id number] 40mg Take 1 tablet by mouth at bedtime. [facility] spironolact one (ALDACTONE) 25 mg tablet 2022-10 00:00: 00 Yes [id number] 25mg Take 1 tablet by mouth in the morning. [facility] rosuvastati n 40 mg tablet 2022-10 00:00: 00 Yes [id number] 40mg Take 1 tablet by mouth at bedtime. [facility] spironolact one (ALDACTONE) 25 mg tablet 2022-10 00:00: 00 Yes [id number] 25mg Take 1 tablet by mouth in the morning. [facility] rosuvastati n 40 mg tablet 2022-10 00:00: 00 Yes [id number] 40mg Take 1 tablet by mouth at bedtime. [facility] spironolact one (ALDACTONE) 25 mg tablet 2022-10 00:00: 00 Yes [id number] 25mg Take 1 tablet by mouth in the morning. [facility] rosuvastati n 40 mg tablet 2022-10 00:00: 00 Yes [id number] 40mg Take 1 tablet by mouth at bedtime. [facility] spironolact one (ALDACTONE) 25 mg tablet 2022-10 00:00: 00 Yes [id number] 25mg Take 1 tablet by mouth in the morning. [facility] rosuvastati n 40 mg tablet 2022-10 00:00: 00 Yes [id number] 40mg Take 1 tablet by mouth at bedtime. [facility] spironolact one (ALDACTONE) 25 mg tablet 2022-10 00:00: 00 Yes [id number] 25mg Take 1 tablet by mouth in the morning. [facility] rosuvastati n 40 mg tablet 2022-10 00:00: 00 Yes [id number] 40mg Take 1 tablet by mouth at bedtime. [facility] spironolact one (ALDACTONE) 25 mg tablet 2022-10 00:00: 00 Yes [id number] 25mg Take 1 tablet by mouth in the morning. [facility] rosuvastati n 40 mg tablet 2022-10 00:00: 00 Yes [id number] 40mg Take 1 tablet by mouth at bedtime. [facility] spironolact one (ALDACTONE) 25 mg tablet 2022-10 00:00: 00 Yes [id number] 25mg Take 1 tablet by mouth in the morning. [facility] rosuvastati n 40 mg tablet 2022-10 00:00: 00 Yes [id number] 40mg Take 1 tablet by mouth at bedtime. [facility] spironolact one (ALDACTONE) 25 mg tablet 2022-10 00:00: 00 Yes [id number] 25mg Take 1 tablet by mouth in the morning. [facility] amLODIPine 5 mg tablet 2022-10 00:00: 00 08-24 00:00 :00 No [id number] 5mg Take 1 tablet by mouth in the morning and 1 tablet in the evening. [facility] furosemide 20 mg tablet 2022-10 00:00: 00 08-16 00:00 :00 No [id number] 20mg Take 1 tablet by mouth every morning and evening. [facility] aspirin 81 mg EC tablet 2022-10 00:00: 00 08-16 00:00 :00 No [id number] 81mg Take 1 tablet by mouth in the morning. [facility] carvediloL 25 mg tablet 2022-10 00:00: 00 08-16 00:00 :00 No 25mg Take 1 tablet by mouth in the morning and 1 tablet in the evening. Take with meals. [facility] furosemide 20 mg tablet 2022-10 00:00: 00 08-16 00:00 :00 No [id number] 20mg Take 1 tablet by mouth every morning and evening. [facility] aspirin 81 mg EC tablet 2022-10 00:00: 00 08-16 00:00 :00 No [id number] 81mg Take 1 tablet by mouth in the morning. [facility] carvediloL 25 mg tablet 2022-10 00:00: 00 08-16 00:00 :00 No 25mg Take 1 tablet by mouth in the morning and 1 tablet in the evening. Take with meals. [facility] furosemide 20 mg tablet 2022-10 00:00: 00 08-16 00:00 :00 No [id number] 20mg Take 1 tablet by mouth every morning and evening. [facility] aspirin 81 mg EC tablet 2022-10 00:00: 00 08-16 00:00 :00 No [id number] 81mg Take 1 tablet by mouth in the morning. [facility] carvediloL 25 mg tablet 2022-10 00:00: 00 08-16 00:00 :00 No 25mg Take 1 tablet by mouth in the morning and 1 tablet in the evening. Take with meals. [facility] carvediloL 12.5 mg tablet 2022-10 00:00: 00 08-13 00:00 :00 No 25mg Take 2 tablets by mouth in the morning and 2 tablets in the evening. Take with meals. [facility] diltiazem XR 180 mg 24 hr capsule 2022-10 00:00: 00 08-13 00:00 :00 No 180mg Take 1 capsule by mouth in the morning. [facility] potassium chloride 20 mEq tablet 2022-10 00:00: 00 08-13 00:00 :00 No 10meq Take 0.5 tablets by mouth in the morning. [facility] hydroCHLORO thiazide 25 mg tablet 2022-10 00:00: 00 08-13 00:00 :00 No 25mg Take 1 tablet by mouth in the morning. [facility] potassium chloride 20 mEq tablet 2022-10 00:00: 00 08-13 00:00 :00 No 20meq Take 1 tablet by mouth in the morning. [facility] carvediloL 12.5 mg tablet 2022-10 00:00: 00 08-13 00:00 :00 No 25mg Take 2 tablets by mouth in the morning and 2 tablets in the evening. Take with meals. [facility] diltiazem XR 180 mg 24 hr capsule 2022-10 00:00: 00 08-13 00:00 :00 No 180mg Take 1 capsule by mouth in the morning. [facility] potassium chloride 20 mEq tablet 2022-10 00:00: 00 08-13 00:00 :00 No 10meq Take 0.5 tablets by mouth in the morning. [facility] hydroCHLORO thiazide 25 mg tablet 2022-10 00:00: 00 08-13 00:00 :00 No 25mg Take 1 tablet by mouth in the morning. [facility] potassium chloride 20 mEq tablet 2022-10 00:00: 00 08-13 00:00 :00 No 20meq Take 1 tablet by mouth in the morning. [facility] ATORVASTATI N 80 mg tablet 2021-10 0- 00:00: 00 Yes [id number] TAKE 1 TABLET BY MOUTH EVERYDAY AT BEDTIME [facility] ATORVASTATI N 80 mg tablet 2021-10 0- 00:00: 00 Yes [id number] TAKE 1 TABLET BY MOUTH EVERYDAY AT BEDTIME [facility] ATORVASTATI N 80 mg tablet 2021-10 0- 00:00: 00 Yes [id number] TAKE 1 TABLET BY MOUTH EVERYDAY AT BEDTIME [facility] ATORVASTATI N 80 mg tablet 2021-10 0- 00:00: 00 Yes [id number] TAKE 1 TABLET BY MOUTH EVERYDAY AT BEDTIME [facility] ATORVASTATI N 80 mg tablet 2021-10 0- 00:00: 00 Yes [id number] TAKE 1 TABLET BY MOUTH EVERYDAY AT BEDTIME [facility] ATORVASTATI N 80 mg tablet 2021-10 0- 00:00: 00 Yes [id number] TAKE 1 TABLET BY MOUTH EVERYDAY AT BEDTIME [facility] ATORVASTATI N 80 mg tablet 2021-10 0-26 00:00: 00 Yes [id number] TAKE 1 TABLET BY MOUTH EVERYDAY AT BEDTIME [facility] ATORVASTATI N 80 mg tablet 2021- 0-26 00:00: 00 Yes [id number] TAKE 1 TABLET BY MOUTH EVERYDAY AT BEDTIME [facility] ATORVASTATI N 80 mg tablet 2021- 0-26 00:00: 00 Yes [id number] TAKE 1 TABLET BY MOUTH EVERYDAY AT BEDTIME [facility] ATORVASTATI N 80 mg tablet 2021-10 0 00:00: 00 Yes [id number] TAKE 1 TABLET BY MOUTH EVERYDAY AT BEDTIME [facility] ATORVASTATI N 80 mg tablet 2021-10 0- 00:00: 00 Yes [id number] TAKE 1 TABLET BY MOUTH EVERYDAY AT BEDTIME [facility] ATORVASTATI N 80 mg tablet 2021-10 0 00:00: 00 08-13 00:00 :00 No [id number] TAKE 1 TABLET BY MOUTH EVERYDAY AT BEDTIME [facility] ATORVASTATI N 80 mg tablet 2021-10 0 00:00: 00 08-13 00:00 :00 No [id number] TAKE 1 TABLET BY MOUTH EVERYDAY AT BEDTIME [facility] furosemide 80 mg tablet 2021-10 0- 00:00: 00 Yes [id number] 40mg Take 0.5 tablets by mouth every morning and evening. [facility] furosemide 80 mg tablet 2021-10 0- 00:00: 00 Yes [id number] 40mg Take 0.5 tablets by mouth every morning and evening. [facility] furosemide 80 mg tablet 2021-10 020 00:00: 00 Yes [id number] 40mg Take 0.5 tablets by mouth every morning and evening. [facility] furosemide 80 mg tablet 2021-10 0- 00:00: 00 Yes [id number] 40mg Take 0.5 tablets by mouth every morning and evening. [facility] furosemide 80 mg tablet 2021-10 0-20 00:00: 00 Yes [id number] 40mg Take 0.5 tablets by mouth every morning and evening. [facility] furosemide 80 mg tablet 2021-10 0-20 00:00: 00 Yes [id number] 40mg Take 0.5 tablets by mouth every morning and evening. [facility] furosemide 80 mg tablet 2021-10 0-20 00:00: 00 Yes [id number] 40mg Take 0.5 tablets by mouth every morning and evening. [facility] furosemide 80 mg tablet 2021-10 0-20 00:00: 00 Yes [id number] 40mg Take 0.5 tablets by mouth every morning and evening. [facility] furosemide 80 mg tablet 2021-10 0-20 00:00: 00 Yes [id number] 40mg Take 0.5 tablets by mouth every morning and evening. [facility] furosemide 80 mg tablet 2021-10 0-20 00:00: 00 Yes [id number] 40mg Take 0.5 tablets by mouth every morning and evening. [facility] furosemide 80 mg tablet 2021-10 0-20 00:00: 00 Yes [id number] 40mg Take 0.5 tablets by mouth every morning and evening. [facility] furosemide 80 mg tablet 2021-10 0- 00:00: 00 Yes [id number] 40mg Take 0.5 tablets by mouth every morning and evening. [facility] furosemide 80 mg tablet 2021-10 0- 00:00: 00 Yes [id number] 40mg Take 0.5 tablets by mouth every morning and evening. [facility] furosemide 80 mg tablet 2021-10 0 00:00: 00 08-13 00:00 :00 No [id number] 40mg Take 0.5 tablets by mouth every morning and evening. [facility] furosemide 80 mg tablet 2021-10 0 00:00: 00 08-13 00:00 :00 No [id number] 40mg Take 0.5 tablets by mouth every morning and evening. [facility] amLODIPine 5 mg tablet 2021-10 00:00: 00 Yes [id number] 5mg Take 1 tablet by mouth in the morning. [facility] clopidogreL (PLAVIX) 75 mg tablet 2021-10 00:00: 00 Yes [id number] 75mg Take 1 tablet by mouth in the morning. [facility] lisinopriL 40 mg tablet 2021-10 00:00: 00 Yes [id number] 40mg Take 1 tablet by mouth in the morning. [facility] metoprolol succinate XL 100 mg 24 hr tablet 2021-10 00:00: 00 Yes [id number] 100mg Take 1 tablet by mouth in the morning and 1 tablet in the evening. [facility] spironolact one 50 mg tablet 2021-10 00:00: 00 Yes [id number] 50mg Take 1 tablet by mouth in the morning. [facility] furosemide 80 mg tablet 2021-10 00:00: 00 Yes [id number] 80mg Take 1 tablet by mouth every morning and evening. [facility] amLODIPine 5 mg tablet 2021-10 00:00: 00 Yes [id number] 5mg Take 1 tablet by mouth in the morning. [facility] clopidogreL (PLAVIX) 75 mg tablet 2021-10 00:00: 00 Yes [id number] 75mg Take 1 tablet by mouth in the morning. [facility] lisinopriL 40 mg tablet 2021-10 00:00: 00 Yes [id number] 40mg Take 1 tablet by mouth in the morning. [facility] metoprolol succinate XL 100 mg 24 hr tablet 2021-10 00:00: 00 Yes [id number] 100mg Take 1 tablet by mouth in the morning and 1 tablet in the evening. [facility] spironolact one 50 mg tablet 2021-10 00:00: 00 Yes [id number] 50mg Take 1 tablet by mouth in the morning. [facility] [facility] mg tablet 2021-10 00:00: 00 Yes [id number] 80mg Take 1 tablet by mouth every morning and evening[facility] amLODIPine 5 mg tablet 2021-10 00:00: 00 Yes [id number] 5mg Take 1 tablet by mouth in the morning[facility] clopidogreL (PLAVIX) 75 mg tablet 2021-10 00:00: 00 Yes [id number] 75mg Take 1 tablet by mouth in the morning. [facility] lisinopriL 40 mg tablet 2021-10 00:00: 00 Yes [id number] 40mg Take 1 tablet by mouth in the morning. [facility] metoprolol succinate XL 100 mg 24 hr tablet 2021-10 00:00: 00 Yes [id number] 100mg Take 1 tablet by mouth in the morning and 1 tablet in the evening. [facility] spironolact one 50 mg tablet 2021-10 00:00: 00 Yes [id number] 50mg Take 1 tablet by mouth in the morning. [facility] furosemide 80 mg tablet 2021-10 00:00: 00 Yes [id number] 80mg Take 1 tablet by mouth every morning and evening. [facility] amLODIPine 5 mg tablet 2021-10 00:00: 00 Yes [id number] 5mg Take 1 tablet by mouth in the morning. [facility] clopidogreL (PLAVIX) 75 mg tablet 2021-10 00:00: 00 Yes [id number] 75mg Take 1 tablet by mouth in the morning[facility] metoprolol succinate XL 100 mg 24 hr tablet 2021-10 00:00: 00 Yes [id number] 100mg Take 1 tablet by mouth in the morning and 1 tablet in the evening. [facility] amLODIPine 5 mg tablet 2021-10 00:00: 00 Yes [id number] 5mg Take 1 tablet by mouth in the morning. [facility] clopidogreL (PLAVIX) 75 mg tablet 2021-10 00:00: 00 Yes [id number] 75mg Take 1 tablet by mouth in the morning. [facility] metoprolol succinate XL 100 mg 24 hr tablet 2021-10 00:00: 00 Yes [id number] 100mg Take 1 tablet by mouth in the morning and 1 tablet in the evening. [facility] amLODIPine 5 mg tablet 2021-10 00:00: 00 Yes [id number] 5mg Take 1 tablet by mouth in the morning. [facility] clopidogreL (PLAVIX) 75 mg tablet 2021-10 00:00: 00 Yes [id number] 75mg Take 1 tablet by mouth in the morning. [facility] metoprolol succinate XL 100 mg 24 hr tablet 2021-10 00:00: 00 Yes [id number] 100mg Take 1 tablet by mouth in the morning and 1 tablet in the evening. [facility] amLODIPine 5 mg tablet 2021-10 00:00: 00 Yes [id number] 5mg Take 1 tablet by mouth in the morning. [facility] clopidogreL (PLAVIX) 75 mg tablet 2021-10 00:00: 00 Yes [id number] 75mg Take 1 tablet by mouth in the morning. [facility] metoprolol succinate XL 100 mg 24 hr tablet 2021-10 00:00: 00 Yes [id number] 100mg Take 1 tablet by mouth in the morning and 1 tablet in the evening. [facility] amLODIPine 5 mg tablet 2021-10 00:00: 00 Yes [id number] 5mg Take 1 tablet by mouth in the morning. [facility] clopidogreL (PLAVIX) 75 mg tablet 2021-10 00:00: 00 Yes [id number] 75mg Take 1 tablet by mouth in the morning. [facility] metoprolol succinate XL 100 mg 24 hr tablet 2021-10 00:00: 00 Yes [id number] 100mg Take 1 tablet by mouth in the morning and 1 tablet in the evening. [facility] amLODIPine 5 mg tablet 2021-10 00:00: 00 Yes [id number] 5mg Take 1 tablet by mouth in the morning. [facility] clopidogreL (PLAVIX) 75 mg tablet 2021-10 00:00: 00 Yes [id number] 75mg Take 1 tablet by mouth in the morning. [facility] metoprolol succinate XL 100 mg 24 hr tablet 2021-10 00:00: 00 Yes [id number] 100mg Take 1 tablet by mouth in the morning and 1 tablet in the evening. [facility] amLODIPine 5 mg tablet 2021-10 00:00: 00 Yes [id number] 5mg Take 1 tablet by mouth in the morning. [facility] clopidogreL (PLAVIX) 75 mg tablet 2021-10 00:00: 00 Yes [id number] 75mg Take 1 tablet by mouth in the morning. [facility] metoprolol succinate XL 100 mg 24 hr tablet 2021-10 00:00: 00 Yes [id number] 100mg Take 1 tablet by mouth in the morning and 1 tablet in the evening. [facility] amLODIPine 5 mg tablet 2021-10 0 00:00: 00 Yes [id number] 5mg Take 1 tablet by mouth in the morning. [facility] clopidogreL (PLAVIX) 75 mg tablet 2021-10 00:00: 00 Yes [id number] 75mg Take 1 tablet by mouth in the morning[facility] metoprolol succinate XL 100 mg 24 hr tablet 2021-10 00:00: 00 Yes [id number] 100mg Take 1 tablet by mouth in the morning and 1 tablet in the evening. [facility] amLODIPine 5 mg tablet 2021-10 00:00: 00 Yes [id number] 5mg Take 1 tablet by mouth in the morning. [facility] clopidogreL (PLAVIX) 75 mg tablet 2021-10 00:00: 00 Yes [id number] 75mg Take 1 tablet by mouth in the morning. [facility] metoprolol succinate XL 100 mg 24 hr tablet 2021-10 00:00: 00 Yes [id number] 100mg Take 1 tablet by mouth in the morning and 1 tablet in the evening. [facility] amLODIPine 5 mg tablet 2021-10 00:00: 00 Yes [id number] 5mg Take 1 tablet by mouth in the morning. [facility] clopidogreL (PLAVIX) 75 mg tablet 2021-10 00:00: 00 Yes [id number] 75mg Take 1 tablet by mouth in the morning. [facility] metoprolol succinate XL 100 mg 24 hr tablet 2021-10 00:00: 00 Yes [id number] 100mg Take 1 tablet by mouth in the morning and 1 tablet in the evening. [facility] amLODIPine 5 mg tablet 2021-10 00:00: 00 Yes [id number] 5mg Take 1 tablet by mouth in the morning. [facility] clopidogreL (PLAVIX) 75 mg tablet 2021-10 00:00: 00 Yes [id number] 75mg Take 1 tablet by mouth in the morning. [facility] metoprolol succinate XL 100 mg 24 hr tablet 2021-10 00:00: 00 Yes [id number] 100mg Take 1 tablet by mouth in the morning and 1 tablet in the evening. [facility] amLODIPine 5 mg tablet 2021-10 00:00: 00 Yes [id number] 5mg Take 1 tablet by mouth in the morning. [facility] clopidogreL (PLAVIX) 75 mg tablet 2021-10 0 00:00: 00 Yes [id number] 75mg Take 1 tablet by mouth in the morning. [facility] metoprolol succinate XL 100 mg 24 hr tablet 2021-10 00:00: 00 Yes [id number] 100mg Take 1 tablet by mouth in the morning and 1 tablet in the evening. [facility] amLODIPine 5 mg tablet 2021-10 00:00: 00 Yes [id number] 5mg Take 1 tablet by mouth in the morning. [facility] clopidogreL (PLAVIX) 75 mg tablet 2021-10 00:00: 00 Yes [id number] 75mg Take 1 tablet by mouth in the morning. [facility] metoprolol succinate XL 100 mg 24 hr tablet 2021-10 00:00: 00 Yes [id number] 100mg Take 1 tablet by mouth in the morning and 1 tablet in the evening. [facility] amLODIPine 5 mg tablet 2021-10 00:00: 00 Yes [id number] 5mg Take 1 tablet by mouth in the morning. [facility] clopidogreL (PLAVIX) 75 mg tablet 2021-10 00:00: 00 Yes [id number] 75mg Take 1 tablet by mouth in the morning. [facility] metoprolol succinate XL 100 mg 24 hr tablet 2021-10 0 00:00: 00 Yes [id number] 100mg Take 1 tablet by mouth in the morning and 1 tablet in the evening. [facility] clopidogreL (PLAVIX) 75 mg tablet 2021-10 0 00:00: 00 Yes [id number] 75mg Take 1 tablet by mouth in the morning. [facility] clopidogreL (PLAVIX) 75 mg tablet 2021-10 0-19 00:00: 00 Yes [id number] 75mg Take 1 tablet by mouth in the morning. [facility] clopidogreL (PLAVIX) 75 mg tablet 2021-10 0-19 00:00: 00 Yes [id number] 75mg Take 1 tablet by mouth in the morning. [facility] clopidogreL (PLAVIX) 75 mg tablet 2021-10 0- 00:00: 00 08-16 00:00 :00 No [id number] 75mg Take 1 tablet by mouth in the morning. [facility] clopidogreL (PLAVIX) 75 mg tablet 2021-10 0- 00:00: 00 08-16 00:00 :00 No [id number] 75mg Take 1 tablet by mouth in the morning. [facility] clopidogreL (PLAVIX) 75 mg tablet 2021-10 0 00:00: 00 08-16 00:00 :00 No [id number] 75mg Take 1 tablet by mouth in the morning. [facility] amLODIPine 5 mg tablet 2021-10 0- 00:00: 00 08-13 00:00 :00 No [id number] 5mg Take 1 tablet by mouth in the morning. [facility] metoprolol succinate XL 100 mg 24 hr tablet 2021-10 0 00:00: 00 08-13 00:00 :00 No [id number] 100mg Take 1 tablet by mouth in the morning and 1 tablet in the evening. [facility] amLODIPine 5 mg tablet 2021-10 0 00:00: 00 08-13 00:00 :00 No [id number] 5mg Take 1 tablet by mouth in the morning. [facility] metoprolol succinate XL 100 mg 24 hr tablet 2021-10 0- 00:00: 00 08-13 00:00 :00 No [id number] 100mg Take 1 tablet by mouth in the morning and 1 tablet in the evening. [facility] lisinopriL 40 mg tablet 2021-10 0- 00:00: 00 07-30 00:00 :00 No [id number] 40mg Take 1 tablet by mouth in the morning. [facility] spironolact one 50 mg tablet 2021-1019 00:00: 00 07-30 00:00 :00 No [id number] 50mg Take 1 tablet by mouth in the morning. [facility] furosemide 80 mg tablet 2021-1019 00:00: 00 07-30 00:00 :00 No [id number] 80mg Take 1 tablet by mouth every morning and evening. [facility] spironolact one (ALDACTONE) tablet 50 mg 2021-10 14:00: 00 Yes 50mg 50 mg, Oral, DAILY, First dose (after last modificati on) on Wed07/24/22 at 0900, Until Discontinu ed, Routine [facility] metoprolol succinate XL (TOPROL XL) tablet 100 mg 2021-10 01:00: 00 Yes 100mg 100 mg, Oral, BID, First dose (after last modificati on) on Aleyda 07/23/22 at 2000, Until Discontinu ed, Routine [facility] spironolact one 50 mg tablet 2021-10 00:00: 00 08-24 05:59 :00 No [id number] 50mg Take 1 tablet by mouth in the morning for 30 days. [facility] spironolact one 50 mg tablet 2021-10 00:00: 00 08-24 05:59 :00 No [id number] 50mg Take 1 tablet by mouth in the morning for 30 days. [facility] spironolact one 50 mg tablet 2021-1014 00:00: 00 07-29 00:00 :00 No [id number] 50mg Take 1 tablet by mouth in the morning for 30 days. [facility] spironolact one 50 mg tablet 2021-1014 00:00: 00 07-29 00:00 :00 No [id number] 50mg Take 1 tablet by mouth in the morning for 30 days. [facility] dextran 70/hypromel lose (ARTIFICIAL TEARS, PF, OPHTHALMIC) 2021-10 17:49: [address] each eye as needed. [facility] dextran 70/hypromel lose (ARTIFICIAL TEARS, PF, OPHTHALMIC) 2021-10 0 17:49: [address] in each eye as needed. [facility] dextran 70/hypromel lose (ARTIFICIAL TEARS, PF, OPHTHALMIC) 2021-10 0 17:49: [address] in each eye as needed. [facility] dextran 70/hypromel lose (ARTIFICIAL TEARS, PF, OPHTHALMIC) 2021-10 0 17:49: [address] in each eye as needed. [facility] dextran 70/hypromel lose (ARTIFICIAL TEARS, PF, OPHTHALMIC) 2021-10 0 17:49: [address] in each eye as needed. [facility] dextran 70/hypromel lose (ARTIFICIAL TEARS, PF, OPHTHALMIC) 2021-10 0 17:49: [address] in each eye as needed. [facility] dextran 70/hypromel lose (ARTIFICIAL TEARS, PF, OPHTHALMIC) 2021-10 0 17:49: [address] in each eye as needed. [facility] dextran 70/hypromel lose (ARTIFICIAL TEARS, PF, OPHTHALMIC) 2021-10 0 17:49: [address] in each eye as needed. [facility] dextran 70/hypromel lose (ARTIFICIAL TEARS, PF, OPHTHALMIC) 2021-10 0 17:49: [address] in each eye as needed. [facility] dextran 70/hypromel lose (ARTIFICIAL TEARS, PF, OPHTHALMIC) 2021-10 0 17:49: [address] in each eye as needed. [facility] dextran 70/hypromel lose (ARTIFICIAL TEARS, PF, OPHTHALMIC) 2021-10 0 17:49: [address] in each eye as needed. [facility] dextran 70/hypromel lose (ARTIFICIAL TEARS, PF, OPHTHALMIC) 2021-10 0 17:49: [address] in each eye as needed. [facility] dextran 70/hypromel lose (ARTIFICIAL TEARS, PF, OPHTHALMIC) 2021-10 0-13 17:49: [address] in each eye as needed. [facility] dextran 70/hypromel lose (ARTIFICIAL TEARS, PF, OPHTHALMIC) 2021-10 013 17:49: [address] in each eye as needed. [facility] dextran 70/hypromel lose (ARTIFICIAL TEARS, PF, OPHTHALMIC) 2021-10 013 17:49: [address] in each eye as needed. [facility] dextran 70/hypromel lose (ARTIFICIAL TEARS, PF, OPHTHALMIC) 2021-10 013 17:49: [address] in each eye as needed. [facility] dextran 70/hypromel lose (ARTIFICIAL TEARS, PF, OPHTHALMIC) 2021-10 013 17:49: [address] in each eye as needed. [facility] dextran 70/hypromel lose (ARTIFICIAL TEARS, PF, OPHTHALMIC) 2021-10 013 17:49: [address] in each eye as needed. [facility] dextran 70/hypromel lose (ARTIFICIAL TEARS, PF, OPHTHALMIC) 2021-10 013 17:49: [address] in each eye as needed. [facility] dextran 70/hypromel lose (ARTIFICIAL TEARS, PF, OPHTHALMIC) 2021-10 013 17:49: [address] in each eye as needed. [facility] dextran 70/hypromel lose (ARTIFICIAL TEARS, PF, OPHTHALMIC) 2021-10 013 17:49: [address] in each eye as needed. [facility] dextran 70/hypromel lose (ARTIFICIAL TEARS, PF, OPHTHALMIC) 2021-10 013 17:49: [address] in each eye as needed. [facility] dextran 70/hypromel lose (ARTIFICIAL TEARS, PF, OPHTHALMIC) 2021-10 013 17:49: [address] in each eye as needed. [facility] dextran 70/hypromel lose (ARTIFICIAL TEARS, PF, OPHTHALMIC) 2021-10 013 17:49: [address] in each eye as needed. [facility] dextran 70/hypromel lose (ARTIFICIAL TEARS, PF, OPHTHALMIC) 2021-10 17:49: [address] in each eye as needed. [facility] dextran 70/hypromel lose (ARTIFICIAL TEARS, PF, OPHTHALMIC) 2021-10 17:49: [address] [facility] needed. [facility] spironolact one (ALDACTONE) tablet 25 mg 2021-10 14:00: 00 07-23 15:25 :57 No 25mg 25 mg, Oral, DAILY, First dose (after last modificati on) on Aleyda 07/23/22 at 0900, Until Discontinu ed, [facility] KCL (KLOR-CON M20) tablet 20 mEq 2021-10 12:30: 00 07-23 14:03 :00 No 20meq 20 mEq, Oral, ONCE, 1 dose, On Aleyda 07/23/22 at 0730, Routine [facility] hydrALAZINE (APRESOLINE ) tablet 50 mg 2021-10 12:00: 00 07-23 15:26 :04 No 50mg 50 mg, Oral, Q8H, First dose on Aleyda 07/23/22 at 0700, Until Discontinu ed, Routine [facility] lisinopriL 40 mg tablet 2021-10 00:00: 00 08-23 05:59 :00 No [id number] 40mg Take 1 tablet by mouth in the morning for 30 days. [facility] furosemide 80 mg tablet 2021-10 00:00: 00 08-23 05:59 :00 No [id number] 80mg Take 1 tablet by mouth every morning and evening for 30 days. [facility] clopidogreL (PLAVIX) 75 mg tablet 2021-10 00:00: 00 08-23 05:59 :00 No [id number] 75mg Take 1 tablet by mouth in the morning for 30 days. [facility] amLODIPine 10 mg tablet 2021-10 00:00: 00 08-23 05:59 :00 No [id number] 10mg Take 1 tablet by mouth in the morning for 30 days. [facility] metoprolol succinate XL 100 mg 24 hr tablet 2021-10 0-13 00:00: 00 08-23 05:59 :00 No [id number] 100mg Take 1 tablet by mouth in the morning and 1 tablet in the evening. Do all this for 30 days. [facility] lisinopriL 40 mg tablet 2021-10 0-13 00:00: 00 08-23 05:59 :00 No [id number] 40mg Take 1 tablet by mouth in the morning for 30 days. [facility] furosemide 80 mg tablet 2021-10 00:00: 00 08-23 05:59 :00 No [id number] 80mg Take 1 tablet by mouth every morning and evening for 30 days. [facility] clopidogreL (PLAVIX) 75 mg tablet 2021-10 0 00:00: 00 08-23 05:59 :00 No [id number] 75mg Take 1 tablet by mouth in the morning for 30 days. [facility] amLODIPine 10 mg tablet 2021-10 00:00: 00 08-23 05:59 :00 No [id number] 10mg Take 1 tablet by mouth in the morning for 30 days. [facility] metoprolol succinate XL 100 mg 24 hr tablet 2021-10-13 00:00: 00 08-23 05:59 :00 No [id number] 100mg Take 1 tablet by mouth in the morning and 1 tablet in the evening. Do all this for 30 days. [facility] lisinopriL 40 mg tablet 2021-10 0-13 00:00: 00 07-29 00:00 :00 No [id number] 40mg Take 1 tablet by mouth in the morning for 30 days. [facility] furosemide 80 mg tablet 2021-10 0-13 00:00: 00 07-29 00:00 :00 No [id number] 80mg Take 1 tablet by mouth every morning and evening for 30 days. [facility] clopidogreL (PLAVIX) 75 mg tablet 2021-10 0- 00:00: 00 07-29 00:00 :00 No [id number] 75mg Take 1 tablet by mouth in the morning for 30 days. [facility] amLODIPine 10 mg tablet 2021-10 0-13 00:00: 00 07-29 00:00 :00 No [id number] 10mg Take 1 tablet by mouth in the morning for 30 days. [facility] metoprolol succinate XL 100 mg 24 hr tablet 2021-10 0-13 00:00: 00 07-29 00:00 :00 No [id number] 100mg Take 1 tablet by mouth in the morning and 1 tablet in the evening. Do all this for 30 days. [facility] lisinopriL 40 mg tablet 2021-10 0-13 00:00: 00 07-29 00:00 :00 No [id number] 40mg Take 1 tablet by mouth in the morning for 30 days. [facility] furosemide 80 mg tablet 2021-10 0-13 00:00: 00 07-29 00:00 :00 No [id number] 80mg Take 1 tablet by mouth every morning and evening for 30 days. [facility] clopidogreL (PLAVIX) 75 mg tablet 2021-10 0-13 00:00: 00 07-29 00:00 :00 No [id number] 75mg Take 1 tablet by mouth in the morning for 30 days. [facility] amLODIPine 10 mg tablet 2021-10 0-13 00:00: 00 07-29 00:00 :00 No [id number] 10mg Take 1 tablet by mouth in the morning for 30 days. [facility] metoprolol succinate XL 100 mg 24 hr tablet 2021-10 0-13 00:00: 00 07-29 00:00 :00 No [id number] 100mg Take 1 tablet by mouth in the morning and 1 tablet in the evening. Do all this for 30 days. [facility] furosemide (LASIX) tablet 80 mg 2021-10 012 22:00: 00 Yes 80mg 80 mg, Oral, QAM+PM, First dose (after last modificati on) on Wed07/22/22 at 1700, Until Discontinu ed, Routine [facility] amLODIPine (NORVASC) tablet 10 mg 2021-10 18:15: 00 Yes 10mg 10 mg, Oral, DAILY, First dose on Wed07/22/22 at 1315, Until Discontinu ed, Routine [facility] potassium chloride in water (KCL) 20 mEq/100 mL RTU IVPB 20 mEq 2021-10 17:00: 00 07-22 21:30 :00 No 20meq 20 mEq, IV Piggyback, Q2H, 1 dose, First dose (after last modificati on) on Wed07/22/22 at 1200, 100 mL [facility] furosemide (LASIX) tablet 20 mg 2021-10 16:15: 00 07-22 17:16 :00 No 20mg 20 mg, Oral, ONCE, 1 dose, On Wed07/22/22 at 1115, [facility] furosemide (LASIX) tablet 60 mg 2021-10 14:00: 00 07-22 15:17 :12 No 60mg 60 mg, Oral, QAM+PM, First dose (after last modificati on) on Wed07/22/22 at 0900, Until Discontinu ed, Rout[facility] spironolact one (ALDACTONE) tablet 12.5 mg 2021-1012 14:00: 00 07-22 18:11 :05 No 12.5mg 12.5 mg, Oral, DAILY, First dose on Wed07/22/22 at 0900, Until Discontinu ed, Rout[facility] potassium chloride in water (KCL) 20 mEq/100 mL RTU IVPB 20 mEq 2021-10 13:00: 00 07-22 16:59 :11 No 20meq 20 mEq, IV Piggyback, Q2H, First dose on Wed07/22/22 at 0800, Until Discontinu ed, 100 mL [facility] KCL (KLOR-CON M20) tablet 40 mEq 2021-10 0-12 09:00: 00 07-22 10:45 :00 No 40meq 40 mEq, Oral, Q2H, 2 doses, First dose on Wed07/22/22 at 0400, Last dose on Wed07/22/22 at 0600, Routine [facility] iron dextran (INFED) 1,000 mg in NaCl 0.9% (NS) 500 mL IV infusion 2021-10 20:45: 00 07-21 23:52 :00 No 1000mg 1,000 mg, IV Infusion, ONCE, 1 dose, On Wed07/21/22 at 1545, Administer over 1.5 Hours, 500 mL [facility] iron dextran (INFED) 25 mg in NaCl 0.9% (NS) 100 mL IV piggyback 2021-10 20:45: 00 07-21 22:20 :30 No 25mg 25 mg, IV Piggyback, ONCE, 1 dose, On Wed07/21/22 at 1545, Administer over 15 Minutes, 100 mL [facility] atorvastati n (LIPITOR) tablet 80 mg 2021-10 02:00: 00 Yes 80mg 80 mg, Oral, QHS, First dose on Wed07/20/22 at 2100, Until Discontinu ed, Routine [facility] hydrALAZINE (APRESOLINE ) tablet 75 mg 2021-10 17:00: 00 07-22 18:14 :27 No 75mg 75 mg, Oral, Q6H, First dose (after last modificati on) on Wed07/20/22 at 1200, Until Discontinu ed, Routine [facility] spironolact one (ALDACTONE) tablet 25 mg 2021-10 14:00: 00 07-20 14:30 :39 No 25mg 25 mg, Oral, DAILY, First dose on Wed07/20/22 at 0900, Until Discontinu ed, Routine [facility] potassium chloride in water (KCL) 20 mEq/100 mL RTU IVPB 20 mEq 2021-10 13:00: 00 07-20 18:23 :00 No 20meq 20 mEq, IV Piggyback, Q2H, 2 doses, First dose on Wed07/20/22 at 0800, Last dose on Wed07/20/22 at 1000, 100 mL [facility] KCL (KLOR-CON M20) tablet 40 mEq 2021-10 12:45: 00 07-20 14:28 :00 No 40meq 40 mEq, Oral, ONCE, 1 dose, On Wed07/20/22 at 0745, Routine [facility] ipratropium -albuteroL (DUONEB) 0.5 mg-3 mg(2.5 mg base)/3 mL nebulizer solution 3 mL 2021-10 17:00: 00 Yes 3mL 3 mL, Inhalation , QID, First dose (after last modificati on) on Wed07/19/22 at 1200, Until Discontinu ed, Routine [facility] potassium chloride in water (KCL) 20 mEq/100 mL RTU IVPB 20 mEq 2021-10 17:00: 00 07-19 22:23 :00 No 20meq 20 mEq, IV Piggyback, Q2H, 2 doses, First dose (after last modificati on) on Wed07/19/22 at 1200, Last dose on Wed07/19/22 at 1400, 100 mL [facility] magnesium sulfate in water 2 gram/50 mL (4 %) infusion 2 g 2021-10 16:45: 00 07-19 18:13 :00 No 2g 2 g, IV Piggyback, Administer over 60 Minutes, ONCE, 1 dose, On Wed07/19/22 at 1145, Routine [facility] metoprolol succinate XL (TOPROL XL) tablet 100 mg 2021-10 14:00: 00 07-23 14:31 :19 No 100mg 100 mg, Oral, DAILY, First dose on Wed07/19/22 at 0900, Until Discontinu ed, Routine [facility] furosemide (LASIX) injection 80 mg 2021-10 0 13:00: 00 07-22 12:33 :27 No 80mg 80 mg, Slow IV Push, Q12H, First dose (after last modificati on) on Wed07/19/22 at 0800, Until Discontinu ed, Routine [facility] KCL (KLOR-CON M20) tablet 40 mEq 2021-10 0 13:00: 00 07-19 15:50 :18 No 40meq 40 mEq, Oral, Q2H, 3 doses, First dose (after last reorder) on 07/19/22 at 0800, Last dose on Wed07/19/22 at 1200, Routine [facility] hydrALAZINE (APRESOLINE ) tablet 75 mg 2021-10 12:30: 00 07-20 04:49 :12 No 75mg 75 mg, Oral, Q6H, First dose (after last modificati on) on 07/19/22 at 0730, Until Discontinu ed, Routine [facility] hydrALAZINE (APRESOLINE ) tablet 50 mg 2021-10 17:00: 00 07-19 12:17 :00 No 50mg 50 mg, Oral, Q6H, First dose (after last modificati on) on 07/18/22 at 1200, Until Discontinu ed, Routine [facility] lisinopriL (PRINIVIL,Z ESTRIL) tablet 40 mg 2021-10 14:00: 00 Yes 40mg 40 mg, Oral, DAILY, First dose (after last modificati on) on 07/18/22 at 0900, Until Discontinu ed, Routine [facility] predniSONE (DELTASONE) tablet 40 mg 2021-10 14:00: 00 07-21 14:20 :00 No 40mg 40 mg, Oral, DAILY, 4 doses, First dose on 07/18/22 at 0900, Last dose on Wed07/21/22 at 0900, Routine [facility] KCL (KLOR-CON M20) tablet 40 mEq 2021-10 0 13:30: 00 07-18 13:14 :00 No 40meq 40 mEq, Oral, ONCE, 1 dose, On 07/18/22 at 0830, Routine [facility] hydrALAZINE (APRESOLINE ) tablet 25 mg 2022-1 0-08 12:45: 00 07-18 16:18 :51 No 25mg 25 mg, Oral, Q6H, First dose on Wed07/18/22 at 0745, Until Discontinu ed, Routine [facility] lisinopriL (PRINIVIL,Z ESTRIL) tablet 10 mg 2021-10 0 14:00: 00 07-17 21:54 :14 No 10mg 10 mg, Oral, DAILY, First dose (after last modificati on) on Wed07/17/22 at 0900, Until Discontinu ed, Routine [facility] methylPREDN ISolone sod succ (SOLU-MEDRO L (PF)) injection 40 mg 2021-10 14:00: 00 07-17 14:00 :00 No 40mg 40 mg, IV Piggyback, ONCE NOW, 1 dose, On Wed07/17/22 at 0900, STAT [facility] ipratropium -albuteroL (DUONEB) 0.5 mg-3 mg(2.5 mg base)/3 mL nebulizer solution 3 mL 2021-10 13:45: 00 07-19 15:53 :16 No 3mL 3 mL, Inhalation , Q4H, First dose (after last modificati on) on Wed07/17/22 at 0845, Until Discontinu ed, Routine [facility] potassium chloride in water (KCL) 20 mEq/100 mL RTU IVPB 20 mEq 2021-10 11:30: 00 07-17 16:06 :43 No 20meq 20 mEq, IV Piggyback, Q2H ES, 2 doses, First dose on Wed07/17/22 at 0630, Last dose on Wed07/17/22 at 0830, 100 mL [facility] enoxaparin (LOVENOX) injection 40 mg 2021-10 0 22:00: 00 Yes 40mg 40 mg, Subcutaneo us, DAILY, First dose on Aleyda 07/16/22 at 1700, Until Discontinu ed, Routine [facility] carvediloL (COREG) tablet 25 mg 2021-10 0-06 22:00: 00 07-19 12:18 :51 No 25mg 25 mg, Oral, BID MEALS, First dose on Wed07/16/22 at 1700, Until Discontinu ed, Routine [facility] furosemide (LASIX) injection 80 mg 2021-10 19:00: 00 07-19 12:26 :03 No 80mg 80 mg, Slow IV Push, Q8H, First dose (after last modificati on) on Wed07/16/22 at 1400, Until Discontinu ed, Routine [facility] lisinopriL (PRINIVIL,Z ESTRIL) tablet 5 mg 2021-10 18:30: 00 07-17 13:39 :19 No 5mg 5 mg, Oral, DAILY, First dose on Wed07/16/22 at 1330, Until Discontinu ed, [facility] sulfur hexafluorid e microsphr (LUMASON) injection 5 mL 2021-10 17:15: 00 07-16 17:15 :00 No [id number] 5mL 5 mL, Intravenou s, ONCE, 1 dose, On Wed07/16/22 at 1215, Routine
merchandise flow team member approving Restricted medication : [facility] aspirin chewable tablet 81 mg 2021-10 14:00: 00 Yes 81mg 81 mg, Oral, DAILY, First dose on Wed07/16/22 at 0900, Until Discontinu ed, Routine [facility] clopidogreL (PLAVIX) 75 mg tablet 75 mg 2021-10 14:00: 00 Yes 75mg 75 mg, Oral, DAILY, First dose on Wed07/16/22 at 0900, Until Discontinu ed, Routine [facility] ipratropium -albuteroL (DUONEB) 0.5 mg-3 mg(2.5 mg base)/3 mL nebulizer solution 3 mL 2021-10 13:00: 00 07-17 13:39 :43 No 3mL 3 mL, Inhalation , QID, First dose on Wed07/16/22 at 0800, Until Discontinu ed, Routine [facility] nitroglycer in 50 mg in D5W 250 mL infusion RTU 2021-10 0 12:04: 39 07-19 12:15 :15 No 5ug/min 5-200 mcg/min (1.5-60 mL/hr), IV Infusion, TITRATE, SBP<180, Starting on Aleyda 07/16/22 at 0704
In itiate infusion at 5 mcg/min.&n bsp; Titrate by 5 mcg/min every 3 minutes to 5 minutes as needed to achieve and maintain goal blood pressure. Maximum dose = 200 mcg/min. If goal not maintained at maximum allowed dose, contact prescriber .
[facility] methylpredn isolone sod succ (SOLU-MEDRO L) injection 125 mg 2021-10 11:15: 00 07-16 10:12 :00 No 125mg 125 mg, IV Piggyback, ONCE, 1 dose, On Aleyda 07/16/22 at 0615, STAT [facility] furosemide (LASIX) injection 80 mg 2021-10 10:30: 00 07-16 10:30 :00 No 80mg 80 mg, IV Push, ONCE, 1 dose, On Aleyda 07/16/22 at 0530, [facility] lisinopriL 5 mg tablet 07-08 00:00: 00 Yes [id number] TAKE 1 TABLET BY MOUTH EVERY DAY IN THE MORNING [facility] clopidogreL (PLAVIX) 75 mg tablet 07-08 00:00: 00 Yes [id number] 75mg Take 1 tablet by mouth in the morning. [facility] lisinopriL 5 mg tablet 07-08 00:00: 00 07-23 00:00 :00 No [id number] TAKE 1 TABLET BY MOUTH EVERY DAY IN THE MORNING [facility] clopidogreL (PLAVIX) 75 mg tablet 07-08 00:00: 00 07-23 00:00 :00 No [id number] 75mg Take 1 tablet by mouth in the morning. [facility] ATORVASTATI N 80 mg tablet 2-0 -16 00:00: 00 Yes [id number] TAKE 1 TABLET BY MOUTH EVERYDAY AT BEDTIME [facility] ATORVASTATI N 80 mg tablet 2-0 -16 00:00: 00 Yes [id number] TAKE 1 TABLET BY MOUTH EVERYDAY AT BEDTIME [facility] ATORVASTATI N 80 mg tablet 2-0 -16 00:00: 00 Yes [id number] TAKE 1 TABLET BY MOUTH EVERYDAY AT BEDTIME [facility] ATORVASTATI N 80 mg tablet 2-0 -16 00:00: 00 Yes [id number] TAKE 1 TABLET BY MOUTH EVERYDAY AT BEDTIME [facility] ATORVASTATI N 80 mg tablet 2-0 -16 00:00: 00 Yes [id number] TAKE 1 TABLET BY MOUTH EVERYDAY AT BEDTIME [facility] ATORVASTATI N 80 mg tablet 2-0 -16 00:00: 00 Yes [id number] TAKE 1 TABLET BY MOUTH EVERYDAY AT BEDTIME [facility] ATORVASTATI N 80 mg tablet 2021-0 -16 00:00: 00 Yes [id number] TAKE 1 TABLET BY MOUTH EVERYDAY AT BEDTIME [facility] ATORVASTATI N 80 mg tablet 2021-0 -16 00:00: 00 Yes [id number] TAKE 1 TABLET BY MOUTH EVERYDAY AT BEDTIME [facility] ATORVASTATI N 80 mg tablet 2-0 -16 00:00: 00 Yes [id number] TAKE 1 TABLET BY MOUTH EVERYDAY AT BEDTIME [facility] ATORVASTATI N 80 mg tablet 2021-0 -16 00:00: 00 Yes [id number] TAKE 1 TABLET BY MOUTH EVERYDAY AT BEDTIME [facility] ATORVASTATI N 80 mg tablet 2-0 -16 00:00: 00 - 00:00 :00 No [id number] TAKE 1 TABLET BY MOUTH EVERYDAY AT BEDTIME [facility] clopidogreL (PLAVIX) 75 mg tablet 2-0 9-13 00:00: 00 Yes [id number] 75mg Take 1 tablet by mouth in the morning. [facility] clopidogreL (PLAVIX) 75 mg tablet 2021-0 9-13 00:00: 00 Yes [id number] 75mg Take 1 tablet by mouth in the morning. [facility] clopidogreL (PLAVIX) 75 mg tablet 0 06-23 00:00: 00 07-08 00:00 :00 No [id number] 75mg Take 1 tablet by mouth in the morning. [facility] CARVEDILOL 25 mg tablet 2021-0 06-15 00:00: 00 Yes [id number] TAKE 1 TABLET BY MOUTH TWICE A DAY [facility] CARVEDILOL 25 mg tablet 2021-0 06-15 00:00: 00 Yes [id number] TAKE 1 TABLET BY MOUTH TWICE A DAY [facility] CARVEDILOL 25 mg tablet 2021-0 06-15 00:00: 00 Yes [id number] TAKE 1 TABLET BY MOUTH TWICE A DAY [facility] CARVEDILOL 25 mg tablet 2021-0 06-15 00:00: 00 07-23 00:00 :00 No [id number] TAKE 1 TABLET BY MOUTH TWICE A DAY [facility] lisinopriL 5 mg tablet 2021-0 06-02 00:00: 00 Yes [id number] TAKE 1 TABLET BY MOUTH EVERY DAY IN THE MORNING [facility] lisinopriL 5 mg tablet 2021-0 06-02 00:00: 00 Yes [id number] TAKE 1 TABLET BY MOUTH EVERY DAY IN THE MORNING [facility] lisinopriL 5 mg tablet 2021-0 06-02 00:00: 00 07-08 00:00 :00 No [id number] TAKE 1 TABLET BY MOUTH EVERY DAY IN THE MORNING [facility] ATORVASTATI N 80 mg tablet 2021-0 8-17 00:00: 00 Yes [id number] TAKE 1 TABLET BY MOUTH EVERYDAY AT BEDTIME [facility] ATORVASTATI N 80 mg tablet 2021-0 8-17 00:00: 00 Yes [id number] TAKE 1 TABLET BY MOUTH EVERYDAY AT BEDTIME [facility] AMLODIPINE 10 mg tablet 2021-0 7-26 00:00: 00 Yes [id number] TAKE 1 TABLET BY MOUTH EVERY DAY [facility] AMLODIPINE 10 mg tablet 2021-0 05-05 00:00: 00 Yes [id number] TAKE 1 TABLET BY MOUTH EVERY DAY [facility] AMLODIPINE 10 mg tablet 0 05-05 00:00: 00 Yes [id number] TAKE 1 TABLET BY MOUTH EVERY DAY [facility] AMLODIPINE 10 mg tablet 0 05-05 00:00: 00 07-23 00:00 :00 No [id number] TAKE 1 TABLET BY MOUTH EVERY DAY [facility] ticagrelor 90 mg tablet 0 18 00:00: 00 06-23 00:00 :00 No [id number] 90mg Take 1 tablet by mouth in the morning and 1 tablet in the evening. [facility] tamsulosin 0.4 mg 24 hr capsule 2021-0 4-16 00:00: 00 Yes [id number] .4mg Take 1 capsule by mouth at bedtime. [facility] tamsulosin 0.4 mg 24 hr capsule 2-0 4-16 00:00: 00 Yes [id number] .4mg Take 1 capsule by mouth at bedtime. [facility] tamsulosin 0.4 mg 24 hr capsule 2-0 4-16 00:00: 00 Yes [id number] .4mg Take 1 capsule by mouth at bedtime. [facility] tamsulosin 0.4 mg 24 hr capsule 2-0 4-16 00:00: 00 Yes [id number] .4mg Take 1 capsule by mouth at bedtime. [facility] tamsulosin 0.4 mg 24 hr capsule 2-0 4-16 00:00: 00 Yes [id number] .4mg Take 1 capsule by mouth at bedtime. [facility] tamsulosin 0.4 mg 24 hr capsule 2-0 4-16 00:00: 00 Yes [id number] .4mg Take 1 capsule by mouth at bedtime. [facility] tamsulosin 0.4 mg 24 hr capsule 2-0 4-16 00:00: 00 Yes [id number] .4mg Take 1 capsule by mouth at bedtime. [facility] tamsulosin 0.4 mg 24 hr capsule 2022-0 4-16 00:00: 00 Yes [id number] .4mg Take 1 capsule by mouth at bedtime. [facility] tamsulosin 0.4 mg 24 hr capsule 2022-0 4-16 00:00: 00 Yes [id number] .4mg Take 1 capsule by mouth at bedtime. [facility] tamsulosin 0.4 mg 24 hr capsule 2022-0 4-16 00:00: 00 Yes [id number] .4mg Take 1 capsule by mouth at bedtime. [facility] tamsulosin 0.4 mg 24 hr capsule 2022-0 4-16 00:00: 00 Yes [id number] .4mg Take 1 capsule by mouth at bedtime. [facility] tamsulosin 0.4 mg 24 hr capsule 2022-0 4-16 00:00: 00 Yes [id number] .4mg Take 1 capsule by mouth at bedtime. [facility] tamsulosin 0.4 mg 24 hr capsule 2022-0 4-16 00:00: 00 Yes [id number] .4mg Take 1 capsule by mouth at bedtime. [facility] tamsulosin 0.4 mg 24 hr capsule 2022-0 4-16 00:00: 00 Yes [id number] .4mg Take 1 capsule by mouth at bedtime. [facility] tamsulosin 0.4 mg 24 hr capsule 2022-0 4-16 00:00: 00 Yes [id number] .4mg Take 1 capsule by mouth at bedtime. [facility] tamsulosin 0.4 mg 24 hr capsule 2022-0 4-16 00:00: 00 Yes [id number] .4mg Take 1 capsule by mouth at bedtime. [facility] tamsulosin 0.4 mg 24 hr capsule 2022-0 4-16 00:00: 00 Yes [id number] .4mg Take 1 capsule by mouth at bedtime. [facility] tamsulosin 0.4 mg 24 hr capsule 2022-0 4-16 00:00: 00 Yes [id number] .4mg Take 1 capsule by mouth at bedtime. [facility] tamsulosin 0.4 mg 24 hr capsule 2022-0 4-16 00:00: 00 Yes [id number] .4mg Take 1 capsule by mouth at bedtime. [facility] tamsulosin 0.4 mg 24 hr capsule 2-0 4-16 00:00: 00 Yes [id number] .4mg Take 1 capsule by mouth at bedtime. [facility] tamsulosin 0.4 mg 24 hr capsule 2-0 4-16 00:00: 00 Yes [id number] .4mg Take 1 capsule by mouth at bedtime. [facility] tamsulosin 0.4 mg 24 hr capsule 2-0 4-16 00:00: 00 Yes [id number] .4mg Take 1 capsule by mouth at bedtime. [facility] tamsulosin 0.4 mg 24 hr capsule 2-0 4-16 00:00: 00 Yes [id number] .4mg Take 1 capsule by mouth at bedtime. [facility] tamsulosin 0.4 mg 24 hr capsule 2-0 4-16 00:00: 00 Yes [id number] .4mg Take 1 capsule by mouth at bedtime. [facility] tamsulosin 0.4 mg 24 hr capsule 2-0 4-16 00:00: 00 Yes [id number] .4mg Take 1 capsule by mouth at bedtime. [facility] tamsulosin 0.4 mg 24 hr capsule 2-0 4-16 00:00: 00 08-13 00:00 :00 No [id number] .4mg Take 1 capsule by mouth at bedtime. [facility] tamsulosin 0.4 mg 24 hr capsule 2-0 4-16 00:00: 00 08-13 00:00 :00 No [id number] .4mg Take 1 capsule by mouth at bedtime. [facility] aspirin 81 mg chewable tablet 2-0 4-03 00:00: 00 01-12 04:59 :00 No [id number] 81mg Take 1 tablet by mouth daily. [facility] aspirin 81 mg chewable tablet 2-0 4-03 00:00: 00 01-12 04:59 :00 No [id number] 81mg Take 1 tablet by mouth daily. [facility] aspirin 81 mg chewable tablet 2-0 4-03 00:00: 00 01-12 04:59 :00 No [id number] 81mg Take 1 tablet by mouth daily. [facility] mg chewable tablet 2-0 4-03 00:00: 00 01-12 04:59 :00 No [id number] 81mg Take 1 tablet by mouth daily. [facility] 81 mg chewable tablet 2-0 4-03 00:00: 00 01-12 04:59 :00 No [id number] 81mg Take 1 tablet by mouth daily. [facility] aspirin 81 mg chewable tablet 2-0 4-03 00:00: 00 01-12 04:59 :00 No [id number] 81mg Take 1 tablet by mouth daily. [facility] aspirin 81 mg chewable tablet 2-0 4-03 00:00: 00 01-12 04:59 :00 No [id number] 81mg Take 1 tablet by mouth daily. [facility] aspirin 81 mg chewable tablet 2-0 4-03 00:00: 00 01-12 04:59 :00 No [id number] 81mg Take 1 tablet by mouth daily. [facility] aspirin 81 mg chewable tablet 2-0 4-03 00:00: 00 01-12 04:59 :00 No [id number] 81mg Take 1 tablet by mouth daily. [facility] aspirin 81 mg chewable tablet 2-0 4-03 00:00: 00 01-12 04:59 :00 No [id number] 81mg Take 1 tablet by mouth daily. [facility] aspirin 81 mg chewable tablet 2-0 4-03 00:00: 00 01-12 04:59 :00 No [id number] 81mg Take 1 tablet by mouth daily. [facility] aspirin 81 mg chewable tablet 2-0 4-03 00:00: 00 01-12 04:59 :00 No [id number] 81mg Take 1 tablet by mouth daily. [facility] aspirin 81 mg chewable tablet 2-0 4-03 00:00: 00 01-12 04:59 :00 No [id number] 81mg Take 1 tablet by mouth daily. [facility] mg chewable tablet 2-0 4- 00:00: 00 01-12 04:59 :00 No [id number] 81mg Take 1 tablet by mouth daily. [facility] aspirin 81 mg chewable tablet 2021-0 4- 00:00: 00 01-12 04:59 :00 No [id number] 81mg Take 1 tablet by mouth daily. [facility] aspirin 81 mg chewable tablet 2021-0 4- 00:00: 00 01-12 04:59 :00 No [id number] 81mg Take 1 tablet by mouth daily. [facility] aspirin 81 mg chewable tablet 2021-0 4- 00:00: 00 01-12 04:59 :00 No [id number] 81mg Take 1 tablet by mouth daily. [facility] aspirin 81 mg chewable tablet 2021-0 4- 00:00: 00 01-12 04:59 :00 No [id number] 81mg Take 1 tablet by mouth daily. [facility] aspirin 81 mg chewable tablet 2021-0 4- 00:00: 00 01-12 04:59 :00 No [id number] 81mg Take 1 tablet by mouth daily. [facility] aspirin 81 mg chewable tablet 2021-0 4- 00:00: 00 01-12 04:59 :00 No [id number] 81mg Take 1 tablet by mouth daily. [facility] dextran 70/hypromel lose (ARTIFICIAL TEARS, PF, OPHTHALMIC) 01-10 16:21: [address] in each eye as needed. [facility] dextran 70/hypromel lose (ARTIFICIAL TEARS, PF, OPHTHALMIC) 01-10 16:21: [address] in each eye as needed. [facility] dextran 70/hypromel lose (ARTIFICIAL TEARS, PF, OPHTHALMIC) 2022-0 4-02 16:21: [address] in each eye as needed. [facility] FLUoxetine 20 mg capsule 2-0 2-25 00:00: 00 Yes [id number] 20mg Take 1 capsule by mouth daily. [facility] FLUoxetine 20 mg capsule 2021-0 2-25 00:00: 00 Yes [id number] 20mg Take 1 capsule by mouth daily. [facility] FLUoxetine 20 mg capsule 2-0 2-25 00:00: 00 Yes [id number] 20mg Take 1 capsule by mouth daily. [facility] FLUoxetine 20 mg capsule 2-0 2-25 00:00: 00 Yes [id number] 20mg Take 1 capsule by mouth daily. [facility] FLUoxetine 20 mg capsule 2-0 2-25 00:00: 00 Yes [id number] 20mg Take 1 capsule by mouth daily. [facility] FLUoxetine 20 mg capsule 2-0 2-25 00:00: 00 Yes [id number] 20mg Take 1 capsule by mouth daily. [facility] FLUoxetine 20 mg capsule 2-0 2-25 00:00: 00 Yes [id number] 20mg Take 1 capsule by mouth daily. [facility] FLUoxetine 20 mg capsule 2-0 2-25 00:00: 00 Yes [id number] 20mg Take 1 capsule by mouth daily. [facility] FLUoxetine 20 mg capsule 2-0 2-25 00:00: 00 Yes [id number] 20mg Take 1 capsule by mouth daily. [facility] FLUoxetine 20 mg capsule 2-0 2-25 00:00: 00 Yes [id number] 20mg Take 1 capsule by mouth daily. [facility] FLUoxetine 20 mg capsule 2-0 2-25 00:00: 00 Yes [id number] 20mg Take 1 capsule by mouth daily. [facility] FLUoxetine 20 mg capsule 2-0 2-25 00:00: 00 Yes [id number] 20mg Take 1 capsule by mouth daily. [facility] FLUoxetine 20 mg capsule 2-0 2-25 00:00: 00 Yes [id number] 20mg Take 1 capsule by mouth daily. [facility] FLUoxetine 20 mg capsule 2-0 2-25 00:00: 00 Yes [id number] 20mg Take 1 capsule by mouth daily. [facility] FLUoxetine 20 mg capsule 2-0 2-25 00:00: 00 Yes [id number] 20mg Take 1 capsule by mouth daily. [facility] FLUoxetine 20 mg capsule 2021-0 2-25 00:00: 00 Yes [id number] 20mg Take 1 capsule by mouth daily. [facility] FLUoxetine 20 mg capsule 2-0 2-25 00:00: 00 Yes [id number] 20mg Take 1 capsule by mouth daily. [facility] FLUoxetine 20 mg capsule 2-0 2-25 00:00: 00 Yes [id number] 20mg Take 1 capsule by mouth daily. [facility] FLUoxetine 20 mg capsule 2021-0 2-25 00:00: 00 Yes [id number] 20mg Take 1 capsule by mouth daily. [facility] FLUoxetine 20 mg capsule 2-0 2-25 00:00: 00 Yes [id number] 20mg Take 1 capsule by mouth daily. [facility] FLUoxetine 20 mg capsule 2021-0 2-25 00:00: 00 Yes [id number] 20mg Take 1 capsule by mouth daily. [facility] FLUoxetine 20 mg capsule 2021-0 2-25 00:00: 00 Yes [id number] 20mg Take 1 capsule by mouth daily. [facility] FLUoxetine 20 mg capsule 2-0 2-25 00:00: 00 Yes [id number] 20mg Take 1 capsule by mouth daily. [facility] FLUoxetine 20 mg capsule 2021-0 2-25 00:00: 00 Yes [id number] 20mg Take 1 capsule by mouth daily. [facility] FLUoxetine 20 mg capsule 2-0 2-25 00:00: 00 Yes [id number] 20mg Take 1 capsule by mouth daily. [facility] FLUoxetine 20 mg capsule 2-0 2-25 00:00: 00 11- 00:00 :00 No [id number] 20mg Take 1 capsule by mouth daily. [facility] FLUoxetine 20 mg capsule 2022-0 2-25 00:00: 00 08-13 00:00 :00 No [id number] 20mg Take 1 capsule by mouth daily. [facility] hydroCHLORO thiazide 25 mg tablet 03-05 00:00: 00 Yes [id number] 25mg Take 1 tablet by mouth daily. [facility] hydroCHLORO thiazide 25 mg tablet 03-05 00:00: 00 Yes [id number] 25mg Take 1 tablet by mouth daily. [facility] hydroCHLORO thiazide 25 mg tablet 03-05 00:00: 00 Yes [id number] 25mg Take 1 tablet by mouth daily. [facility] hydroCHLORO thiazide 25 mg tablet 03-05 00:00: 00 07-23 00:00 :00 No [id number] 25mg Take 1 tablet by mouth daily. [facility] Clobetasol Propionate- Emolnt 0.05 % Crea 03-02 00:00: 00 Yes [id number] Apply to area(s) 2 (two) times daily. [facility] Clobetasol Propionate- Emolnt 0.05 % Crea 03-02 00:00: 00 Yes [id number] Apply to area(s) 2 (two) times daily. [facility] Clobetasol Propionate- Emolnt 0.05 % Crea 03-02 00:00: 00 Yes [id number] Apply to area(s) 2 (two) times daily. [facility] Clobetasol Propionate- Emolnt 0.05 % Crea 03-02 00:00: 00 Yes [id number] Apply to area(s) 2 (two) times daily. [facility] Clobetasol Propionate- Emolnt 0.05 % Crea 03-02 00:00: 00 Yes [id number] Apply to area(s) 2 (two) times daily. [facility] Clobetasol Propionate- Emolnt 0.05 % Crea 03-02 00:00: 00 Yes [id number] Apply to area(s) 2 (two) times daily. [facility] Clobetasol Propionate- Emolnt 0.05 % Crea 03-02 00:00: 00 Yes [id number] Apply to area(s) 2 (two) times daily. [facility] Clobetasol Propionate- Emolnt 0.05 % Crea 03-02 00:00: 00 Yes [id number] Apply to area(s) 2 (two) times daily. [facility] Clobetasol Propionate- Emolnt 0.05 % Crea 03-02 00:00: 00 Yes [id number] Apply to area(s) 2 (two) times daily. [facility] Clobetasol Propionate- Emolnt 0.05 % Crea 03-02 00:00: 00 Yes [id number] Apply to area(s) 2 (two) times daily. [facility] Clobetasol Propionate- Emolnt 0.05 % Crea 03-02 00:00: 00 Yes [id number] Apply to area(s) 2 (two) times daily. [facility] Clobetasol Propionate- Emolnt 0.05 % Crea 03-02 00:00: 00 Yes [id number] Apply to area(s) 2 (two) times daily. [facility] Clobetasol Propionate- Emolnt 0.05 % Crea 03-02 00:00: 00 Yes [id number] Apply to area(s) 2 (two) times daily. [facility] Clobetasol Propionate- Emolnt 0.05 % Crea 03-02 00:00: 00 Yes [id number] Apply to area(s) 2 (two) times daily. [facility] Clobetasol Propionate- Emolnt 0.05 % Crea 03-02 00:00: 00 Yes [id number] Apply to area(s) 2 (two) times daily. [facility] Clobetasol Propionate- Emolnt 0.05 % Crea 03-02 00:00: 00 Yes [id number] Apply to area(s) 2 (two) times daily. [facility] Clobetasol Propionate- Emolnt 0.05 % Crea 03-02 00:00: 00 Yes [id number] Apply to area(s) 2 (two) times daily. [facility] Clobetasol Propionate- Emolnt 0.05 % Crea 03-02 00:00: 00 Yes [id number] Apply to area(s) 2 (two) times daily. [facility] Clobetasol Propionate- Emolnt 0.05 % Crea 03-02 00:00: 00 Yes [id number] Apply to area(s) 2 (two) times daily. [facility] Clobetasol Propionate- Emolnt 0.05 % Crea 03-02 00:00: 00 Yes [id number] Apply to area(s) 2 (two) times daily. [facility] Clobetasol Propionate- Emolnt 0.05 % Crea 03-02 00:00: 00 Yes [id number] Apply to area(s) 2 (two) times daily. [facility] Clobetasol Propionate- Emolnt 0.05 % Crea 03-02 00:00: 00 Yes [id number] Apply to area(s) 2 (two) times daily. [facility] Clobetasol Propionate- Emolnt 0.05 % Crea 03-02 00:00: 00 Yes [id number] Apply to area(s) 2 (two) times daily. [facility] Clobetasol Propionate- Emolnt 0.05 % Crea 03-02 00:00: 00 Yes [id number] Apply to area(s) 2 (two) times daily. [facility] Clobetasol Propionate- Emolnt 0.05 % Crea 03-02 00:00: 00 Yes [id number] Apply to area(s) 2 (two) times daily. [facility] Clobetasol Propionate- Emolnt 0.05 % Crea 03-02 00:00: 00 Yes [id number] Apply to area(s) 2 (two) times daily. [facility] Clobetasol Propionate- Emolnt 0.05 % Crea 03-02 00:00: 00 Yes [id number] Apply to area(s) 2 (two) times daily. [facility] Clobetasol Propionate- Emolnt 0.05 % Crea 03-02 00:00: 00 Yes [id number] Apply to area(s) 2 (two) times daily. [facility] Clobetasol Propionate- Emolnt 0.05 % Crea 03-02 00:00: 00 Yes [id number] Apply to area(s) 2 (two) times daily. [facility] Clobetasol Propionate- Emolnt 0.05 % Crea 03-02 00:00: 00 08-13 00:00 :00 No [id number] Apply to area(s) 2 (two) times daily. [facility] Clobetasol Propionate- Emolnt 0.05 % Crea 03-02 00:00: 00 08-13 00:00 :00 No [id number] Apply to area(s) 2 (two) times daily. [facility] CHANTIX 1 mg tablet 02-28 00:00: 00 Yes [id number] TAKE 1 TABLET BY MOUTH TWICE A DAY [facility] CHANTIX 1 mg tablet 02-28 00:00: 00 Yes [id number] TAKE 1 TABLET BY MOUTH TWICE A DAY [facility] CHANTIX 1 mg tablet 02-28 00:00: 00 Yes [id number] TAKE 1 TABLET BY MOUTH TWICE A DAY [facility] CHANTIX 1 mg tablet 02-28 00:00: 00 Yes [id number] TAKE 1 TABLET BY MOUTH TWICE A DAY [facility] CHANTIX 1 mg tablet 0 02-28 00:00: 00 Yes [id number] TAKE 1 TABLET BY MOUTH TWICE A DAY [facility] CHANTIX 1 mg tablet 02-28 00:00: 00 Yes [id number] TAKE 1 TABLET BY MOUTH TWICE A DAY [facility] CHANTIX 1 mg tablet 02-28 00:00: 00 Yes [id number] TAKE 1 TABLET BY MOUTH TWICE A DAY [facility] CHANTIX 1 mg tablet 02-28 00:00: 00 Yes [id number] TAKE 1 TABLET BY MOUTH TWICE A DAY [facility] CHANTIX 1 mg tablet 02-28 00:00: 00 Yes [id number] TAKE 1 TABLET BY MOUTH TWICE A DAY [facility] CHANTIX 1 mg tablet 02-28 00:00: 00 Yes [id number] TAKE 1 TABLET BY MOUTH TWICE A DAY [facility] CHANTIX 1 mg tablet 02-28 00:00: 00 Yes [id number] TAKE 1 TABLET BY MOUTH TWICE A DAY [facility] CHANTIX 1 mg tablet 02-28 00:00: 00 Yes [id number] TAKE 1 TABLET BY MOUTH TWICE A DAY [facility] CHANTIX 1 mg tablet 02-28 00:00: 00 Yes [id number] TAKE 1 TABLET BY MOUTH TWICE A DAY [facility] CHANTIX 1 mg tablet 02-28 00:00: 00 Yes [id number] TAKE 1 TABLET BY MOUTH TWICE A DAY [facility] CHANTIX 1 mg tablet 02-28 00:00: 00 Yes [id number] TAKE 1 TABLET BY MOUTH TWICE A DAY [facility] CHANTIX 1 mg tablet 02-28 00:00: 00 Yes [id number] TAKE 1 TABLET BY MOUTH TWICE A DAY [facility] CHANTIX 1 mg tablet 02-28 00:00: 00 Yes [id number] TAKE 1 TABLET BY MOUTH TWICE A DAY [facility] CHANTIX 1 mg tablet 02-28 00:00: 00 Yes [id number] TAKE 1 TABLET BY MOUTH TWICE A DAY [facility] CHANTIX 1 mg tablet 02-28 00:00: 00 Yes [id number] TAKE 1 TABLET BY MOUTH TWICE A DAY [facility] CHANTIX 1 mg tablet 02-28 00:00: 00 Yes [id number] TAKE 1 TABLET BY MOUTH TWICE A DAY [facility] CHANTIX 1 mg tablet 02-28 00:00: 00 Yes [id number] TAKE 1 TABLET BY MOUTH TWICE A DAY [facility] CHANTIX 1 mg tablet 02-28 00:00: 00 Yes [id number] TAKE 1 TABLET BY MOUTH TWICE A DAY [facility] CHANTIX 1 mg tablet 02-28 00:00: 00 Yes [id number] TAKE 1 TABLET BY MOUTH TWICE A DAY [facility] CHANTIX 1 mg tablet 02-28 00:00: 00 Yes [id number] TAKE 1 TABLET BY MOUTH TWICE A DAY [facility] CHANTIX 1 mg tablet 02-28 00:00: 00 Yes [id number] TAKE 1 TABLET BY MOUTH TWICE A DAY [facility] CHANTIX 1 mg tablet 02-28 00:00: 00 Yes [id number] TAKE 1 TABLET BY MOUTH TWICE A DAY [facility] CHANTIX 1 mg tablet 02-28 00:00: 00 Yes [id number] TAKE 1 TABLET BY MOUTH TWICE A DAY [facility] CHANTIX 1 mg tablet 02-28 00:00: 00 Yes [id number] TAKE 1 TABLET BY MOUTH TWICE A DAY [facility]ANT[facility] 1 mg tablet 02-28 00:00: 00 Yes [id number] TAKE 1 TABLET BY MOUTH TWICE A DAY [facility] CHANTIX 1 mg tablet 02-28 00:00: 00 08-13 00:00 :00 No [id number] TAKE 1 TABLET BY MOUTH TWICE A DAY [facility] CHANTIX 1 mg tablet 02-28 00:00: 00 08-13 00:00 :00 No [id number] TAKE 1 TABLET BY MOUTH TWICE A DAY [facility] Fluticasone -Salmeterol 100-50 mcg/dose inhalation disk 2016-10 00:00: 00 Yes 1{puff} Inhale 1 Puff every 12 (twelve) hours[facility]/actuati on inhaler 2016-10 00:00: 00 Yes 1{puff} Inhale 1 Puff every 6 (six) hours as needed for Wheezing or Shortness of Breath. [facility] Fluticasone -Salmeterol 100-50 mcg/dose inhalation disk 2016-10 00:00: 00 Yes 1{puff} Inhale 1 Puff every 12 (twelve) hours. [facility] m[facility]/actuati on inhaler 2016-10 00:00: 00 Yes 1{puff} Inhale 1 Puff every 6 (six) hours as needed for Wheezing or Shortness of Breath. [facility] Fluticasone -Salmeterol 100-50 mcg/dose inhalation disk 2016-10 00:00: 00 Yes 1{puff} Inhale 1 Puff every 12 (twelve) hours. [facility] albuterol 90 mcg/actuati on inhaler 2016-10 00:00: 00 Yes 1{puff} Inhale 1 Puff every 6 (six) hours as needed for Wheezing or Shortness of Breath. [facility] Fluticasone -Salmeterol 100-50 mcg/dose inhalation disk 2016-10 00:00: 00 Yes 1{puff} Inhale 1 Puff every 12 (twelve) hours. [facility] albuterol 90 mcg/actuati on inhaler 2016-10 00:00: 00 Yes 1{puff} Inhale 1 Puff every 6 (six) hours as needed for Wheezing or Shortness of Breath. [facility] Fluticasone -Salmeterol 100-50 mcg/dose inhalation disk 2016-10 00:00: 00 Yes 1{puff} Inhale 1 Puff every 12 (twelve) hours. [facility] albuterol 90 mcg/actuati on inhaler 2016-10 00:00: 00 Yes 1{puff} Inhale 1 Puff every 6 (six) hours as needed for Wheezing or Shortness of Breath. [facility] Fluticasone -Salmeterol 100-50 mcg/dose inhalation disk 2016-10 00:00: 00 Yes 1{puff} Inhale 1 Puff every 12 (twelve) hours. [facility] albuterol 90 mcg/actuati on inhaler 2016-10 00:00: 00 Yes 1{puff} Inhale 1 Puff every 6 (six) hours as needed for Wheezing or Shortness of Breath. [facility] Fluticasone -Salmeterol 100-50 mcg/dose inhalation disk 2016-10 00:00: 00 Yes 1{puff} Inhale 1 Puff every 12 (twelve) hours. [facility] albuterol 90 mcg/actuati on inhaler 2016-10 00:00: 00 Yes 1{puff} Inhale 1 Puff every 6 (six) hours as needed for Wheezing or Shortness of Breath. [facility] Fluticasone -Salmeterol 100-50 mcg/dose inhalation disk 2016-10 00:00: 00 Yes 1{puff} Inhale 1 Puff every 12 (twelve) hours. [facility] albuterol 90 mcg/actuati on inhaler 2016-10 00:00: 00 Yes 1{puff} Inhale 1 Puff every 6 (six) hours as needed for Wheezing or Shortness of Breath. [facility] Fluticasone -Salmeterol 100-50 mcg/dose inhalation disk 2016-10 00:00: 00 Yes 1{puff} Inhale 1 Puff every 12 (twelve) hours. [facility] albuterol 90 mcg/actuati on inhaler 2016-10 00:00: 00 Yes 1{puff} Inhale 1 Puff every 6 (six) hours as needed for Wheezing or Shortness of Breath. [facility] Fluticasone -Salmeterol 100-50 mcg/dose inhalation disk 2016-10 00:00: 00 Yes 1{puff} Inhale 1 Puff every 12 (twelve) hours. [facility] albuterol 90 mcg/actuati on inhaler 2016-10 00:00: 00 Yes 1{puff} Inhale 1 Puff every 6 (six) hours as needed for Wheezing or Shortness of Breath. [facility] Fluticasone -Salmeterol 100-50 mcg/dose inhalation disk 2016-10 00:00: 00 Yes 1{puff} Inhale 1 Puff every 12 (twelve) hours. [facility] albuterol 90 mcg/actuati on inhaler 2016-10 00:00: 00 Yes 1{puff} Inhale 1 Puff every 6 (six) hours as needed for Wheezing or Shortness of Breath. [facility] Fluticasone -Salmeterol 100-50 mcg/dose inhalation disk 2016-10 00:00: 00 Yes 1{puff} Inhale 1 Puff every 12 (twelve) hours. [facility] albuterol 90 mcg/actuati on inhaler 2016-10 00:00: 00 Yes 1{puff} Inhale 1 Puff every 6 (six) hours as needed for Wheezing or Shortness of Breath. [facility] Fluticasone -Salmeterol 100-50 mcg/dose inhalation disk 2016-10 00:00: 00 Yes 1{puff} Inhale 1 Puff every 12 (twelve) hours. [facility] albuterol 90 mcg/actuati on inhaler 2016-10 00:00: 00 Yes 1{puff} Inhale 1 Puff every 6 (six) hours as needed for Wheezing or Shortness of Breath. [facility] Fluticasone -Salmeterol 100-50 mcg/dose inhalation disk 2016-10 00:00: 00 Yes 1{puff} Inhale 1 Puff every 12 (twelve) hours. [facility] albuterol 90 mcg/actuati on inhaler 2016-10 00:00: 00 Yes 1{puff} Inhale 1 Puff every 6 (six) hours as needed for Wheezing or Shortness of Breath. [facility] Fluticasone -Salmeterol 100-50 mcg/dose inhalation disk 2016-10 00:00: 00 Yes 1{puff} Inhale 1 Puff every 12 (twelve) hours. [facility] albuterol 90 mcg/actuati on inhaler 2016-10 00:00: 00 Yes 1{puff} Inhale 1 Puff every 6 (six) hours as needed for Wheezing or Shortness of Breath. [facility] Fluticasone -Salmeterol 100-50 mcg/dose inhalation disk 2016-10 00:00: 00 Yes 1{puff} Inhale 1 Puff every 12 (twelve) hours. [facility] albuterol 90 mcg/actuati on inhaler 2016-10 00:00: 00 Yes 1{puff} Inhale 1 Puff every 6 (six) hours as needed for Wheezing or Shortness of Breath. [facility] Fluticasone -Salmeterol 100-50 mcg/dose inhalation disk 2016-10 00:00: 00 Yes 1{puff} Inhale 1 Puff every 12 (twelve) hours. [facility] albuterol 90 mcg/actuati on inhaler 2016-10 00:00: 00 Yes 1{puff} Inhale 1 Puff every 6 (six) hours as needed for Wheezing or Shortness of Breath. [facility] Fluticasone -Salmeterol 100-50 mcg/dose inhalation disk 2016-10 00:00: 00 Yes 1{puff} Inhale 1 Puff every 12 (twelve) hours. [facility] albuterol 90 mcg/actuati on inhaler 2016-10 00:00: 00 Yes 1{puff} Inhale 1 Puff every 6 (six) hours as needed for Wheezing or Shortness of Breath. [facility] Fluticasone -Salmeterol 100-50 mcg/dose inhalation disk 2016-10 00:00: 00 Yes 1{puff} Inhale 1 Puff every 12 (twelve) hours. [facility] albuterol 90 mcg/actuati on inhaler 2016-10 00:00: 00 Yes 1{puff} Inhale 1 Puff every 6 (six) hours as needed for Wheezing or Shortness of Breath. [facility] Fluticasone -Salmeterol 100-50 mcg/dose inhalation disk 2016-10 00:00: 00 Yes 1{puff} Inhale 1 Puff every 12 (twelve) hours. [facility] albuterol 90 mcg/actuati on inhaler 2016-10 00:00: 00 Yes 1{puff} Inhale 1 Puff every 6 (six) hours as needed for Wheezing or Shortness of Breath. [facility] Fluticasone -Salmeterol 100-50 mcg/dose inhalation disk 2016-10 00:00: 00 Yes 1{puff} Inhale 1 Puff every 12 (twelve) hours. [facility] albuterol 90 mcg/actuati on inhaler 2016-10 00:00: 00 Yes 1{puff} Inhale 1 Puff every 6 (six) hours as needed for Wheezing or Shortness of Breath. [facility] Fluticasone -Salmeterol 100-50 mcg/dose inhalation disk 2016-10 00:00: 00 Yes 1{puff} Inhale 1 Puff every 12 (twelve) hours. [facility] albuterol 90 mcg/actuati on inhaler 2016-10 00:00: 00 Yes 1{puff} Inhale 1 Puff every 6 (six) hours as needed for Wheezing or Shortness of Breath. [facility] Fluticasone -Salmeterol 100-50 mcg/dose inhalation disk 2016-10 00:00: 00 Yes 1{puff} Inhale 1 Puff every 12 (twelve) hours. [facility] albuterol 90 mcg/actuati on inhaler 2016-10 00:00: 00 Yes 1{puff} Inhale 1 Puff every 6 (six) hours as needed for Wheezing or Shortness of Breath. [facility] Fluticasone -Salmeterol 100-50 mcg/dose inhalation disk 2016-10 00:00: 00 Yes 1{puff} Inhale 1 Puff every 12 (twelve) hours. [facility] albuterol 90 mcg/actuati on inhaler 2016-10 00:00: 00 Yes 1{puff} Inhale 1 Puff every 6 (six) hours as needed for Wheezing or Shortness of Breath. [facility] Fluticasone -Salmeterol 100-50 mcg/dose inhalation disk 2016-10 00:00: 00 Yes 1{puff} Inhale 1 Puff every 12 (twelve) hours. [facility] albuterol 90 mcg/actuati on inhaler 2016-10 00:00: 00 Yes 1{puff} Inhale 1 Puff every 6 (six) hours as needed for Wheezing or Shortness of Breath. [facility] Fluticasone -Salmeterol 100-50 mcg/dose inhalation disk 2016-10 00:00: 00 Yes 1{puff} Inhale 1 Puff every 12 (twelve) hours. [facility] albuterol 90 mcg/actuati on inhaler 2016-10 00:00: 00 Yes 1{puff} Inhale 1 Puff every 6 (six) hours as needed for Wheezing or Shortness of Breath. [facility] Fluticasone -Salmeterol 100-50 mcg/dose inhalation disk 2016-10 00:00: 00 Yes 1{puff} Inhale 1 Puff every 12 (twelve) hours. [facility] albuterol 90 mcg/actuati on inhaler 2016-10 00:00: 00 Yes 1{puff} Inhale 1 Puff every 6 (six) hours as needed for Wheezing or Shortness of Breath. [facility] Fluticasone -Salmeterol 100-50 mcg/dose inhalation disk 2016-10 00:00: 00 Yes 1{puff} Inhale 1 Puff every 12 (twelve) hours. [facility] albuterol 90 mcg/actuati on inhaler 2016-10 00:00: 00 Yes 1{puff} Inhale 1 Puff every 6 (six) hours as needed for Wheezing or Shortness of Breath. [facility] Fluticasone -Salmeterol 100-50 mcg/dose inhalation disk 2016-10 00:00: 00 Yes 1{puff} Inhale 1 Puff every 12 (twelve) hours. [facility] albuterol 90 mcg/actuati on inhaler 2016-10 00:00: 00 Yes 1{puff} Inhale 1 Puff every 6 (six) hours as needed for Wheezing or Shortness of Breath. [facility] albuterol 90 mcg/actuati on inhaler 2016-10 00:00: 00 Yes 1{puff} Inhale 1 Puff every 6 (six) hours as needed for Wheezing or Shortness of Breath. [facility] albuterol 90 mcg/actuati on inhaler 2016-10 00:00: 00 Yes 1{puff} Inhale 1 Puff every 6 (six) hours as needed for Wheezing or Shortness of Breath. [facility] albuterol 90 mcg/actuati on inhaler 2016-10 00:00: 00 Yes 1{puff} Inhale 1 Puff every 6 (six) hours as needed for Wheezing or Shortness of Breath. [facility] albuterol 90 mcg/actuati on inhaler 2016-10 00:00: 00 Yes 1{puff} Inhale 1 Puff every 6 (six) hours as needed for Wheezing or Shortness of Breath. [facility] albuterol 90 mcg/actuati on inhaler 2016-10 00:00: 00 Yes 1{puff} Inhale 1 Puff every 6 (six) hours as needed for Wheezing or Shortness of Breath. [facility] albuterol 90 mcg/actuati on inhaler 2016-10 00:00: 00 Yes 1{puff} Inhale 1 Puff every 6 (six) hours as needed for Wheezing or Shortness of Breath. [facility] albuterol 90 mcg/actuati on inhaler 2016-10 00:00: 00 Yes 1{puff} Inhale 1 Puff every 6 (six) hours as needed for Wheezing or Shortness of Breath. [facility] albuterol 90 mcg/actuati on inhaler 2016-10 00:00: 00 Yes 1{puff} Inhale 1 Puff every 6 (six) hours as needed for Wheezing or Shortness of Breath. [facility] albuterol 90 mcg/actuati on inhaler 2016-10 00:00: 00 Yes 1{puff} Inhale 1 Puff every 6 (six) hours as needed for Wheezing or Shortness of Breath. [facility] albuterol 90 mcg/actuati on inhaler 2016-10 00:00: 00 Yes 1{puff} Inhale 1 Puff every 6 (six) hours as needed for Wheezing or Shortness of Breath. [facility] albuterol 90 mcg/actuati on inhaler 2016-10 00:00: 00 Yes 1{puff} Inhale 1 Puff every 6 (six) hours as needed for Wheezing or Shortness of Breath. [facility] albuterol 90 mcg/actuati on inhaler 2016-10 00:00: 00 Yes 1{puff} Inhale 1 Puff every 6 (six) hours as needed for Wheezing or Shortness of Breath. [facility] albuterol 90 mcg/actuati on inhaler 2016-10 00:00: 00 Yes 1{puff} Inhale 1 Puff every 6 (six) hours as needed for Wheezing or Shortness of Breath. [facility] albuterol 90 mcg/actuati on inhaler 2016-10 00:00: 00 Yes 1{puff} Inhale 1 Puff every 6 (six) hours as needed for Wheezing or Shortness of Breath. [facility] albuterol 90 mcg/actuati on inhaler 2016-10 00:00: 00 Yes 1{puff} Inhale 1 Puff every 6 (six) hours as needed for Wheezing or Shortness of Breath. [facility] albuterol 90 mcg/actuati on inhaler 2016-10 00:00: 00 Yes 1{puff} Inhale 1 Puff every 6 (six) hours as needed for Wheezing or Shortness of Breath. [facility] albuterol 90 mcg/actuati on inhaler 2016-10 00:00: 00 Yes 1{puff} Inhale 1 Puff every 6 (six) hours as needed for Wheezing or Shortness of Breath. [facility] albuterol 90 mcg/actuati on inhaler 2016-10 00:00: 00 Yes 1{puff} Inhale 1 Puff every 6 (six) hours as needed for Wheezing or Shortness of Breath. [facility] albuterol 90 mcg/actuati on inhaler 2016-10 00:00: 00 Yes 1{puff} Inhale 1 Puff every 6 (six) hours as needed for Wheezing or Shortness of Breath. [facility] albuterol 90 mcg/actuati on inhaler 2016-10 00:00: 00 Yes 1{puff} Inhale 1 Puff every 6 (six) hours as needed for Wheezing or Shortness of Breath. [facility] albuterol 90 mcg/actuati on inhaler 2016-10 00:00: 00 Yes 1{puff} Inhale 1 Puff every 6 (six) hours as needed for Wheezing or Shortness of Breath. [facility] albuterol 90 mcg/actuati on inhaler 2016-10 00:00: 00 Yes 1{puff} Inhale 1 Puff every 6 (six) hours as needed for Wheezing or Shortness of Breath. [facility] albuterol 90 mcg/actuati on inhaler 2016-10 00:00: 00 Yes 1{puff} Inhale 1 Puff every 6 (six) hours as needed for Wheezing or Shortness of Breath. [facility] albuterol 90 mcg/actuati on inhaler 2016-10 00:00: 00 Yes 1{puff} Inhale 1 Puff every 6 (six) hours as needed for Wheezing or Shortness of Breath. [facility] albuterol 90 mcg/actuati on inhaler 2016-10 00:00: 00 Yes 1{puff} Inhale 1 Puff every 6 (six) hours as needed for Wheezing or Shortness of Breath. [facility] albuterol 90 mcg/actuati on inhaler 2016-10 00:00: 00 Yes 1{puff} Inhale 1 Puff every 6 (six) hours as needed for Wheezing or Shortness of Breath. [facility] albuterol 90 mcg/actuati on inhaler 2016-10 00:00: 00 Yes 1{puff} Inhale 1 Puff every 6 (six) hours as needed for Wheezing or Shortness of Breath. [facility] albuterol 90 mcg/actuati on inhaler 2016-10 00:00: 00 Yes 1{puff} Inhale 1 Puff every 6 (six) hours as needed for Wheezing or Shortness of Breath. [facility] albuterol 90 mcg/actuati on inhaler 2016-10 00:00: 00 Yes 1{puff} Inhale 1 Puff every 6 (six) hours as needed for Wheezing or Shortness of Breath. [facility] albuterol 90 mcg/actuati on inhaler 2016-10 00:00: 00 Yes 1{puff} Inhale 1 Puff every 6 (six) hours as needed for Wheezing or Shortness of Breath. [facility] albuterol 90 mcg/actuati on inhaler 2016-10 00:00: 00 Yes 1{puff} Inhale 1 Puff every 6 (six) hours as needed for Wheezing or Shortness of Breath. [facility] albuterol 90 mcg/actuati on inhaler 2016-10 00:00: 00 Yes 1{puff} Inhale 1 Puff every 6 (six) hours as needed for Wheezing or Shortness of Breath. [facility] Fluticasone -Salmeterol 100-50 mcg/dose inhalation disk 2016-10 00:00: 00 08-13 00:00 :00 No 1{puff} Inhale 1 Puff every 12 (twelve) hours. [facility] Fluticasone -Salmeterol 100-50 mcg/dose inhalation disk 2016- 00:00: 00 08-13 00:00 :00 No 1{puff} Inhale 1 Puff every 12 (twelve) hours. [facility] Vital Signs Vital Name Observation Time Observation Value Comments [facility]ang harmon Body weight 2023-11-10 20:44:00 121.11 kg [facility] BMI 2023-11-10 20:44:00 47.30 kg/m2 [facility] Systolic blood pressure 2023-09-27 18:41:00 130 mm[Hg] [facility] Diastolic blood pressure 2023-09-27 18:41:00 68 mm[Hg] [facility] Heart rate 2023-09-27 18:38:00 68 /min [facility] Body temperature 2023-09-27 18:38:00 36.56 Susan [facility] Respiratory rate 2023-09-27 18:38:00 20 /min [facility] Body height 2023-09-27 18:38:00 160 cm [facility] Body weight 2023-09-27 18:38:00 121.292 kg [facility] BMI 2023-09-27 18:38:00 47.37 kg/m2 [facility] Oxygen saturation in Arterial blood by Pulse oximetry 2023-09-27 18:38:00 94 /min room air [facility] Systolic blood pressure 2023-09-07 17:40:00 159 mm[Hg] notified provider [facility] Diastolic blood pressure 2023-09-07 17:40:00 97 mm[Hg] notified provider [facility] Heart rate 2023-09-07 17:40:00 85 /min [facility] Body temperature 2023-09-07 17:38:00 34.67 Susan [facility] Respiratory rate 2023-09-07 17:38:00 16 /min [facility] Body height 2023-09-07 17:38:00 160 cm [facility] Body weight 2023-09-07 17:38:00 119.84 kg [facility] BMI 2023-09-07 17:38:00 46.80 kg/m2 [facility] Oxygen saturation in Arterial blood by Pulse oximetry 2023-09-07 17:38:00 93 /min [facility] Body weight 2023-08-25 15:26:00 121.11 kg [facility] BMI 2023-08-25 15:26:00 45.83 kg/m2 [facility] Systolic blood pressure 2023-08-16 14:42:00 160 mm[Hg] [facility] Diastolic blood pressure 2023-08-16 14:42:00 83 mm[Hg] [facility] Heart rate 2023-08-16 14:24:00 83 /min [facility] Body temperature 2023-08-16 14:24:00 36.5 Susan [facility] Body height 2023-08-16 14:24:00 162.6 cm [facility] Body weight 2023-08-16 14:24:00 121.292 kg [facility] BMI 2023-08-16 14:24:00 45.90 kg/m2 [facility] Oxygen saturation in Arterial blood by Pulse oximetry 2023-08-16 14:24:00 95 /min [facility] Systolic blood pressure 2023-08-13 18:44:00 161 mm[Hg] [facility] Diastolic blood pressure 2023-08-13 18:44:00 84 mm[Hg] [facility] Heart rate 2023-08-13 18:42:00 83 /min [facility] Body temperature 2023-08-13 18:42:00 36.39 Susan [facility] Body height 2023-08-13 18:42:00 165.1 cm [facility] Body weight 2023-08-13 18:42:00 121.11 kg [facility] BMI 2023-08-13 18:42:00 44.43 kg/m2 [facility] Oxygen saturation in Arterial blood by Pulse oximetry 2023-08-13 18:42:00 93 /min [facility] Systolic blood pressure 2022-08-03 21:21:00 149 mm[Hg] [facility] Diastolic blood pressure 2022-08-03 21:21:00 80 mm[Hg] [facility] Heart rate 2022-08-03 21:21:00 82 /min [facility] Body temperature 2022-08-03 21:21:00 36.17 Susan [facility] Respiratory rate 2022-08-03 21:21:00 18 /min [facility] Body weight 2022-08-03 21:21:00 117.935 kg [facility] BMI 2022-08-03 21:21:00 43.27 kg/m2 [facility] Oxygen saturation in Arterial blood by Pulse oximetry 2022-08-03 21:21:00 94 /min [facility] Systolic blood pressure 2022-07-29 14:51:00 92 mm[Hg] [facility] Diastolic blood pressure 2022-07-29 14:51:00 61 mm[Hg] [facility] Heart rate 2022-07-29 14:51:00 66 /min [facility] Body temperature 2022-07-29 14:51:00 36.94 Susan [facility] Body height 2022-07-29 14:51:00 165.1 cm [facility] Body weight 2022-07-29 14:51:00 72.576 kg [facility] BMI 2022-07-29 14:51:00 26.63 kg/m2 [facility] Systolic blood pressure 2022-07-23 19:54:00 124 mm[Hg] [facility] Diastolic blood pressure 2022-07-23 19:54:00 61 mm[Hg] [facility] Heart rate 2022-07-23 19:54:00 91 /min [facility] Body temperature 2022-07-23 19:54:00 36.28 Susan [facility] Respiratory rate 2022-07-23 19:54:00 20 /min [facility] Oxygen saturation in Arterial blood by Pulse oximetry 2022-07-23 19:54:00 96 /min [facility] Body weight 2022-07-23 19:51:00 122.426 kg weighed on scale [facility] BMI 2022-07-23 19:51:00 46.31 kg/m2 [facility] Body height 2022-07-19 01:00:00 162.6 cm [facility] Systolic blood pressure 2022-06-23 13:29:00 134 mm[Hg] [facility] Diastolic blood pressure 2022-06-23 13:29:00 80 mm[Hg] [facility] Heart rate 2022-06-23 13:29:00 77 /min [facility] Body temperature 2022-06-23 13:29:00 36.39 Susan [facility] Respiratory rate 2022-06-23 13:29:00 20 /min [facility] Body height 2022-06-23 13:29:00 162.6 cm [facility] Body weight 2022-06-23 13:29:00 122.244 kg [facility] BMI 2022-06-23 13:29:00 46.26 kg/m2 [facility] Oxygen saturation in Arterial blood by Pulse oximetry 2022-06-23 13:29:00 96 /min [facility] Procedures Procedure Date / Time Performed Performing Clinician Source SLEEP LAB RESULTS 2023-09-28 06:01:00 Lisandra Brewster [facility] YAG CAPSULOTOMY - OS - LEFT EYE 2023-08-25 16:33:49 Sarah Rosa [facility] CONSENT/REFUSAL FOR DIAGNOSIS AND TREATMENT 2023-08-25 15:19:04 Doctor Unassigned, Stewart [facility] INSURANCE CORRESPONDENCE 2022-09-18 06:01:00 Doc tor Unassigned, Stewart [facility] AUTHORIZATION FOR RELEASE OF PHI 2022-08-20 06:01:00 Doctor Unassigned, Stewart [facility] AUTHORIZATION FOR RELEASE OF PHI 2022-08-11 05:01:00 Doctor Unassigned, Stewart [facility] CONSENT/REFUSAL FOR DIAGNOSIS AND TREATMENT 2022-08-03 21:18:03 Doctor Unassigned, Stewart [facility] MAGNESIUM 2022-07-23 10:31:00 Vicente Amador [facility] BASIC METABOLIC PANEL (NA, K, CL, CO2, GLUCOSE, BUN, CREATININE, CA) 2022-07-23 10:31:00 Vicente Amador [facility] CBC WITH DIFF 2022-07-23 10:31:00 Vicente Amador [facility] MAGNESIUM 2022-07-22 07:15:00 Vicente Amador [facility] BASIC METABOLIC PANEL (NA, K, CL, CO2, GLUCOSE, BUN, CREATININE, CA) 2022-07-22 07:15:00 Vicente Amador [facility] CBC WITH DIFF 2022-07-22 07:15:00 Vicente Amador [facility] N-TERMINAL PRO-BNP 2022-07-22 07:15:00 Donald Proctor [facility] LACTIC ACID WHOLE BLOOD 2022-07-21 15:05:00 Sa jessica Amador [facility] MAGNESIUM 2022-07-21 11:29:00 Vicente Amador [facility] BASIC METABOLIC PANEL (NA, K, CL, CO2, GLUCOSE, BUN, CREATININE, CA) 2022-07-21 11:29:00 Vicente Amador [facility] CBC WITH DIFF 2022-07-21 11:29:00 Vicente Amador U [facility] MAGNESIUM 2022-07-21 03:04:00 Vicente Amador [facility] BASIC METABOLIC PANEL (NA, K, CL, CO2, GLUCOSE, BUN, CREATININE, CA) 2022-07-21 03:04:00 Vicente Amador [facility] XR CHEST 1 VW 2022-07-20 16:03:00 Vicente Amador U [facility] MAGNESIUM 2022-07-20 10:07:00 Rafa Gomez [facility] FERRITIN SERUM 2022-07-20 10:07:00 Vicente Amador [facility] BASIC METABOLIC PANEL (NA, K, CL, CO2, GLUCOSE, BUN, CREATININE, CA) 2022-07-20 10:07:00 Rafa Gomez [facility] IRON PANEL 2022-07-20 10:07:00 Vicente Amador Un [facility] CBC WITH DIFF 2022-07-20 10:07:00 Rafa Gomez [facility] BASIC METABOLIC PANEL (NA, K, CL, CO2, GLUCOSE, BUN, CREATININE, CA) 2022-07-19 22:26:00 Cinthya [facility] AC PANEL 20 + LACTIC ACID 2022-07-19 15:00:00 Cinthya [facility] MAGNESIUM 2022-07-19 09:51:00 Russ Mendes [facility] COMP. METABOLIC PANEL (14823) 2022-07-19 09:51:00 Cinthya [facility] AC PANEL 20 + LACTIC ACID 2022-07-19 02:56:00 Cinthya [facility] AC PANEL 20 + LACTIC ACID 2022-07-18 13:21:00 Cinthya [facility] MAGNESIUM 2022-07-18 10:11:00 Russ Mendes [facility] COMP. METABOLIC PANEL (01515) 2022-07-18 10:11:00 Cinthya [facility] AC PANEL 20 + LACTIC ACID 2022-07-18 10:11:00 [facility] AC PANEL 20 + LACTIC ACID 2022-07-18 04:25:00 [facility] AC PANEL 20 + LACTIC ACID 2022-07-17 21:24:00 Cinthya [facility] BASIC METABOLIC PANEL (NA, K, CL, CO2, GLUCOSE, BUN, CREATININE, CA) 2022-07-17 19:15:00 Cinthya [facility] XR CHEST 1 VW 2022-07-17 15:10:00 Russ Mendes [facility] AC PANEL 20 + LACTIC ACID 2022-07-17 10:49:00 Cinthya [facility] MAGNESIUM 2022-07-17 08:21:00 [facility] (NA, K, CL, CO2, GLUCOSE, BUN, CREATININE, CA) 2022-07-17 08:21:00 Cinthya [facility] CBC WITH DIFF 2022-07-17 08:21:00 Cinthya [facility] TROPONIN I 2022-07-16 22:36:00 Yesi [facility] AC PANEL 20 + LACTIC ACID 2022-07-16 19:08:00 Cinthya [facility] LACTIC ACID WHOLE BLOOD 2022-07-16 17:23:00 Yesi [facility] TROPONIN I 2022-07-16 17:11:00 Yesi [facility] MRSA / MSSA SCREEN BY PCR, JUAN 2022-07-16 17:11:00 Yesi [facility] TRANSTHORACIC ECHO (TTE) COMPLETE W/ CONTRAST 2022-07-16 17:03:42 Yesi [facility] COVID-19 (ID NOW RAPID TESTING) 2022-07-16 10:54:00 Braeden Irene [facility] LAB ONLY COVID INTERPRETATION 2022-07-16 10:54:00 Braeden Irene [facility] XR CHEST 1 VW 2022-07-16 10:20:00 Braeden Irene [facility] ACUTE CARE ARTERIAL BLOOD GAS 2022-07-16 10:20:00 Braeden Irene [facility] MAGNESIUM 2022-07-16 10:11:00 [facility] TROPONIN I 2022-07-16 10:11:00 [facility] COMP. METABOLIC PANEL (64942) 2022-07-16 10:11:00 Braeden Irene [facility] CBC WITH DIFF 2022-07-16 10:11:00 Braeden Irene [facility] N-TERMINAL PRO-BNP 2022-07-16 10:11:00 Braeden Irene [facility] HB ECG ROUTINE & RHYTHM STRIP 2022-07-16 10:08:07 Braeden Irene [facility] CONSENT/REFUSAL FOR DIAGNOSIS AND TREATMENT 2022-07-16 10:00:37 Doctor Unassigned, Stewart [facility] Encounters Start Date/Time End Date/Time Encounter Type Admission Type Attending [facility] Care Facility Care Department Encounter ID Source 2021-08-08 05:34:52 Outpatient KEYONA PHLILIPS [facility] [id number] [facility] 2021-08-07 22:27:17 Outpatient SUE PHILLIPSSRA [facility] [id number] [facility] 2024-02-16 20:00:00 2024-02-16 20:00:00 Outpatient R [facility] [id number] [facility] 2023-11-10 14:45:00 2023-11-10 15:00:00 Office Visit ShelleySarah [facility]. ..840.114 350.1.13.10 4.2.7.2.686 [id number] [facility] 2023-11-10 14:45:00 2023-11-10 14:45:00 Outpatient R SARAH ROSA [facility] [id number] [facility] 2023-11-10 00:00:00 2023-11-10 00:00:00 Telephone [facility] MEDICAL OFFICE BUILDING 1..840.114 350.1.13.10 4.2.7.2.686 [id number] [id number] [facility] 2023-10-27 00:00:00 2023-10-27 00:00:00 Patient Secure Msg Doctor Unassigned, Stewart [facility] 1..840.114 350.1.13.10 4.2.7.2.686 [id number] [facility] 2023-10-26 00:00:00 2023-10-26 00:00:00 [facility] 1..840.114 350.1.13.10 4.2.7.2.686 [id number] [facility] 2023-10-19 00:00:2023-10-19 00:00:00 Telephone [facility] 1.0.114 350.1.13.10 4.2.7.2.686 [id number] [id number] [facility] 2023-10-18 00:00:00 2023-10-18 00:00:00 Telephone [facility] 1.2840.114 350.1.13.10 4.2.7.2.686 [id number] [facility] 2023-09-29 09:30:00 2023-09-29 09:30:00 Outpatient SARAH SKINNER [facility] [id number] [facility] 2023-09-28 20:00:00 2023-09-28 22:30:00 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 Visit Lab, Sleep Inez Cho 1.0.114 350.1.13.10 4.2.7.2.686 [id number] [facility] 2023-09-28 20:00:00 2023-09-28 20:00:00 Outpatient INEZ NICOLAS [facility] [id number] [facility] 2023-09-28 00:00:00 2023-09-28 00:00:00 Telephone Cam Arias [facility] 1.0.114 350.1.13.10 4.2.7.2.686 [id number] [facility] 2023-09-28 00:00:00 2023-09-28 00:00:00 Orders Only Mimi [facility] MEDICAL OFFICE BUILDING 1.2840.114 350.1.13.10 4.2.7.2.686 [id number] [facility] 2023-09-27 13:45:00 2023-09-27 14:00:00 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 [facility] Arias, [facility] 1.2840.114 350.1.13.10 4.2.7.2.686 [id number] [facility] 2023-09-27 13:00:00 2023-09-27 13:40:00 Office Visit Arias, [facility] 1.2840.114 350.1.13.10 4.2.7.2.686 [id number] [facility] 2023-09-27 13:00:00 2023-09-27 13:00:00 Outpatient R [facility] [id number] [facility] 2023-09-27 00:00:00 2023-09-27 00:00[facility] 1.[facility].114 350.1.13.10 4.2.7.2.686 [id number] [facility] 2023-09-13 13:40:00 2023-09-13 13:40:00 Outpatient R MANOJ ARMENDARIZ [facility] [id number] [facility] 2023-09-09 14:08:39 2023-09-09 23:59:00 Outpatient R SHELLEY KIRSTY [facility] [id number] [facility] 2023-09-09 14:00:00 2023-09-09 23:59:00 [facility] 1.2.114 350.1.13.10 4.2.7.2.686 [id number] [facility] 2023-09-07 11:30:00 2023-09-07 12:00:00 Office Visit Anai Brewsterah [facility] 1.2840.114 350.1.13.10 4.2.7.2.686 [id number] [id number] [facility] 2023-09-07 11:30:00 2023-09-07 11:30:00 Outpatient R LISANDRA BREWSTER [facility] [id number] [facility] 2023-08-26 00:00:00 2023-08-26 00:00:00 Outpatient R KIRSTY ROSA [facility] [id number] [facility] 2023-08-25 09:15:00 2023-08-25 11:17:16 Outpatient R SARAH ROSA [facility] [id number] [facility] 2023-08-25 09:15:00 2023-08-25 11:17:16 Office Visit Sarah Rosa [facility] 1.840.114 350.1.13.10 4.2.7.2.686 [id number] [facility] 2023-08-25 00:00:00 2023-08-25 00:00:00 Orders Only Doctor Unassigned, Stewart [facility] 1.0.114 350.1.13.10 4.2.7.2.686 [id number] [facility] 2023 00:00:00 2023 00:00:00 Refill Kirsty Rosa [facility] 1..114 350.1.13.10 4.2.7.2.686 [id number] [facility] 2023-08-17 00:00:00 2023-08-17 00:00:00 Letter (Out) Faculty, Pulmonary [facility] MEDICAL OFFICE BUILDING 1..114 350.1.13.10 4.2.7.2.686 [id number] [id number] [facility] 2023-08-16 08:20:00 2023-08-16 10:47:51 Outpatient R ANTONIO MAS [facility] [id number] [facility] 2023-08-16 08:20:00 2023-08-16 10:47:51 Office Visit Jeferson Ventura Ernst [facility] 1.2840.114 350.1.13.10 4.2.7.2.686 [id number] [facility] 2023-08-13 15:15:00 2023-08-13 15:30:00 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 Visit [facility] 1.2840.114 350.1.13.10 4.2.7.2.686 [id number] [facility] 2023-08-13 13:30:00 2023-08-13 14:00:00 Office Visit Shelley [facility] 1.2840.114 350.1.13.10 4.2.7.2.686 [id number] [facility] 2023-08-13 13:30:00 2023-08-13 13:30:00 Outpatient R KIRSTY ROSA [facility] [id number] [facility] 2023-08-13 00:00:00 2023-08-13 00:00:00 Patient Secure Msg Doctor Unassigned, Stewart [facility] 1.840.114 350.1.13.10 4.2.7.2.686 [id number] [facility] 2023-08-13 00:00:00 2023-08-13 00:00:00 Patient Secure Msg Doctor Unassigned, Stewart [facility] 1.2840.114 350.1.13.10 4.2.7.2.686 [id number] [facility] 2023-06-28 00:00:00 2023-06-28 00:00:00 [facility] 1.2840.114 350.1.13.10 4.2.7.2.686 [id number] [facility] 2022-11-03 09:00:00 2022-11-03 09:00:00 Outpatient R [facility] [id number] [facility] 2022-10-29 16:30:00 2022-10-29 16:30:00 Outpatient R JOS WHELAN [facility] [id number] [facility] 2022-10-27 00:00:00 2022-10-27 00:00:00 Telephone Jos [facility] 1..114 350.1.13.10 4.2.7.2.686 [id number] [facility] 2022-09-18 00:00:00 2022-09-18 00:00:00 Orders Only Doctor Unassigned, Stewart [facility] 1..114 350.1.13.10 4.2.7.2.686 [id number] [facility] 2022-08-20 00:00:00 2022-08-20 00:00:00 Orders Only Doctor Unassigned, Stewart [facility] 1.0.114 350.1.13.10 4.2.7.2.686 [id number] [facility] 2022-08-19 00:00:00 2022-08-19 00:00:00 Nicolás Bob [facility] 1..114 350.1.13.10 4.2.7.2.686 [id number] 059 [id number] [facility] 2022-08-11 00:00:00 2022-08-11 00:00:00 Letter (Out) Dwayne Pulmonary Medicine - [facility] MEDICAL OFFICE BUILDING 1..114 350.1.13.10 4.2.7.2.686 [id number] [id number] [facility] 2022-08-11 00:00:00 2022-08-11 00:00:00 Orders Only Doctor Unassigned, Stewart [facility] 1.2840.114 350.1.13.10 4.2.7.2.686 [id number] [facility] 2022-08-11 00:00:00 2022-08-11 00:00:00 Patient Secure Msg Doctor Unassigned, Stewart [facility] MEDICAL OFFICE BUILDING 1.2840.114 350.1.13.10 4.2.7.2.686 [id number] [facility] 2022-08-10 00:00:00 2022-08-10 00:00:00 Letter (Out) Clinic, [facility] Pulmonary [facility] MEDICAL OFFICE BUILDING 1.2840.114 350.1.13.10 4.2.7.2.686 [id number] [id number] [facility] 2022-08-06 00:00:00 2022-08-06 00:00:00 Patient Secure Msg Doctor Unassigned, Stewart [facility] MEDICAL OFFICE BUILDING 1.2840.114 350.1.13.10 4.2.7.2.686 [id number] [facility] 2022-08-05 09:15:00 2022-08-05 09:15:00 Outpatient JOS PATRICK [facility] [id number] [facility] 2022-08-03 16:22:00 2022-08-03 16:41:00 Emergency X NANCY MOYER [facility] ERT [id number] [facility] 2022-08-03 16:22:00 2022-08-03 16:41:00 Emergency Nancy [facility] 1.84.114 350.1.13.10 4.2.7.2.686 [id number] [facility] 2022-08-03 00:00:00 2022-08-03 00:00:00 Telephone Elicia Ballard [facility] 1.2.840.114 350.1.13.10 4.2.7.2.686 [id number] [facility] 2022-07-30 00:00:00 2022-07-30 00:00:00 Telephone Phuong Cornell [facility] MEDICAL OFFICE BUILDING 1.2.840.114 350.1.13.10 4.2.7.2.686 [id number] [facility] 2022-07-29 10:45:00 2022-07-29 11:00:00 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 Visit [facility] Nirav Mann [facility] 1.2.840.114 350.1.13.10 4.2.7.2.686 [id number] [facility] 2022-07-29 08:00:00 2022-07-29 08:40:00 Office Visit Phuong Cornell Haider Salam [facility] 1.840.114 350.1.13.10 4.2.7.2.686 [id number] [facility] 2022-07-29 08:00:00 2022-07-29 08:00:00 Outpatient NICOLÁS ELDER [facility] [id number] [facility] 2022-07-29 00:00:00 2022-07-29 00:00:00 Refill Phuong Cornell [facility] 1.2840.114 350.1.13.10 4.2.7.2.686 [id number] [facility] 2022-07-24 00:00:00 2022-07-24 00:00:00 Transition of Care Jacqueline Baum 1.2.840.114 350.1.13.10 4.2.7.2.686 [id number] [facility] 2022-07-16 05:08:00 2022-07-23 17:49:00 Inpatient X NIRAV MANN [facility] [id number] [facility] 2022-07-16 05:08:00 2022-07-23 17:49:00 Hospital Encounter Braeden Irene Nirav Mann Hemyari, Holli Grissom-Messi h, Tareq [facility] 1.840.114 350.1.13.10 4.2.7.2.686 [id number] [facility] 2022-07-20 00:00:00 2022-07-20 00:00:00 [facility] 1.[facility].114 350.1.13.10 4.2.7.2.686 [id number] [facility] 2022-07-08 14:30:00 2022-07-08 14:30:00 Outpatient R SARAH ROSA [facility] [id number] [facility] 2022-07-01 15:00:00 2022-07-01 15:00:00 Outpatient SARAH SKINNER [facility] [id number] [facility] 2022-06-29 00:00:00 2022-06-29 00:00:00 Patient Secure Msg Doctor Unassigned, Stewart [facility] 1.84.114 350.1.13.10 4.2.7.2.686 [id number] [facility] 2022-06-27 00:00:00 2022-06-27 00:00:00 [facility] 1..114 350.1.13.10 4.2.7.2.686 [id number] [facility] 2022-06-24 00:00:00 2022-06-24 00:00:00 Telephone Keyona Phillips [facility] [employer] [facility]. 1.2.840.114 350.1.13.10 4.2.7.2.686 [id number] [facility] 2022-06-23 08:00:00 2022-06-23 08:30:00 Office Visit Sj [facility] 1.2.840.114 350.1.13.10 4.2.7.2.686 [id number] [facility] 2022-06-23 08:00:00 2022-06-23 08:00:00 Outpatient R SJ [facility] [id number] [facility] 2022-06-13 00:00:00 2022-06-13 00:00:00 Refill Flori Tong [facility] 1.2.840.114 350.1.13.10 4.2.7.2.686 [id number] [id number] [facility] 2022-05-27 00:00:00 2022-05-27 00:00:00 Refill [facility] 1.2.840.114 350.1.13.10 4.2.7.2.686 [id number] [facility] 2022-05-27 00:00:00 2022-05-27 00:00:00 Refill Sj [facility] 1.2.840.114 350.1.13.10 4.2.7.2.686 [id number] [facility] 2022-05-04 00:00:00 2022-05-04 00:00:00 Refill Flori Tong [facility] 1.2.840.114 350.1.13.10 4.2.7.2.686 [id number] [facility] 2022-04-25 00:00:00 2022-04-25 00:00:00 Telephone Nicolás Gustafson [facility] 1.2.840.114 350.1.13.10 4.2.7.2.686 [id number] [facility] 2022-04-06 09:45:00 2022-04-06 10:00:00 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 Visit [facility] Ash [facility] 1..840.114 350.1.13.10 4.2.7.2.686 [id number] [facility] 2022-04-06 09:45:00 2022-04-06 09:45:00 Outpatient ELICIA WOODRUFF [facility] [id number] [facility] 2022-04-06 08:30:00 2022-04-06 09:00:00 Office Visit Ash [facility] 1..840.114 350.1.13.10 4.2.7.2.686 [id number] [facility] 2022-04-06 08:30:00 2022-04-06 08:30:00 Outpatient ELICIA WOODRUFF [facility] [id number] [facility] 2022-03-16 16:00:00 2022-03-16 16:00:00 Outpatient ELICIA WOODRUFF [facility] [id number] [facility] 2022-03-12 00:00:00 2022-03-12 00:00:00 Refill Flori Tong [facility] 1..840.114 350.1.13.10 4.2.7.2.686 [id number] [facility] 2022-03-11 00:00:00 2022-03-11 00:00:00 Refill Flori Tong [facility] 1.2.840.114 350.1.13.10 4.2.7.2.686 [id number] [facility] 2022-03-02 00:00:00 2022-03-02 00:00:00 Outpatient KAYLA HAIRSTON ELENITA [facility] [id number] [facility] 2022-02-16 08:00:00 2022-02-16 08:00:00 Outpatient ELICIA WOODRUFF [facility] [id number] [facility] 2022-02-12 00:00:00 2022-02-12 00:00:00 Patient Secure Msg Doctor Unassigned, Stewart [facility] 1.2840.114 350.1.13.10 4.2.7.2.686 [id number] [facility] 2022-02-05 00:00:00 2022-02-05 00:00:00 Orders Only Doctor Unassigned, Stewart [facility] 1.2840.114 350.1.13.10 4.2.7.2.686 [id number] [facility] 2022-02-02 13:30:00 2022-02-02 13:30:00 Outpatient ELICIA WOODRUFF [facility] [id number] [facility] 2022-01-23 21:29:00 2022-01-24 01:00:00 Emergency X OZIEL LAWRENCE [facility] ERT [id number] [facility] 2022-01-23 21:29:00 2022-01-24 01:00:00 Emergency Oziel Lawrence [facility] 1.2840.114 350.1.13.10 4.2.7.2.686 [id number] [facility] 2022-01-22 20:00:00 2022-01-22 20:00:00 Outpatient INEZ NICOLAS [facility] [id number] [facility] 2022-01-22 20:00:00 2022-01-22 20:00:00 Outpatient R INEZ CHO [facility] [id number] [facility] 2022-01-21 13:45:00 2022-01-21 13:45:00 Outpatient R JAMARI LAUREN [facility] [id number] [facility] 2022-01-21 13:45:00 2022-01-21 13:45:00 Laboratory Only Only[facility] 1.2.840.114 350.1.13.10 4.2.7.2.686 [id number] [facility] 2022-01-21 00:00:00 2022-01-21 00:00:00 [facility] 1.2.840.114 350.1.13.10 4.2.7.2.686 [id number] [facility] 2022-01-21 00:00:00 2022-01-21 00:00:00 Telephone Fatuma Borges [facility] 1.2.840.114 350.1.13.10 4.2.7.2.686 [id number] [facility] 2022-01-20 10:30:00 2022-01-20 10:30:00 Outpatient R KAYLA WHEELER ELENITA [facility] [id number] [facility] 2022-01-20 10:30:00 2022-01-20 10:30:00 Outpatient R KAYLA WHEELER ELENITA [facility] [id number] [facility] 2022-01-15 13:30:00 2022-01-15 14:00:00 [facility] 1.2.840.114 350.1.13.10 4.2.7.2.686 [id number] [facility] 2022-01-15 13:30:00 2022-01-15 13:30:00 Out[facility] [id number] [facility] 2022-01-15 13:30:00 2022-01-15 13:30:00 Out[facility] [id number] [facility] 2022-01-13 09:15:00 2022-01-13 09:25:21 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 [facility] 1..840.114 350.1.13.10 4.2.7.2.686 [id number] [facility] 2022-01-13 09:15:00 2022-01-13 09:15:00 Outpatient R [facility] [id number] [facility] 2022-01-12 00:00:00 2022-01-12 00:00:00 [facility] 1..840.114 350.1.13.10 4.2.7.2.686 [id number] [facility] 2022-01-12 00:00:00 2022-01-12 00:00:00 Transition of Care Tressa Decker 1..840.114 350.1.13.10 4.2.7.2.686 [id number] [facility] 2022-01-08 06:41:00 2022-01-10 16:15:00 Inpatient CATHERINE LEZAMA [facility] [id number] [facility] 2022-01-08 06:41:00 2022-01-10 16:15:00 Hospital Encounter Inge Norris, Nirav Garrison h, [facility] 1.2.840.114 350.1.13.10 4.2.7.2.686 [id number] [facility] 2022-01-08 16:55:00 2022-01-08 19:55:00 Surgery Trell Calles [facility] 1.2.840.114 350.1.13.10 4.2.7.2.686 [id number] [facility] 2022-01-05 09:30:00 2022-01-05 10:00:00 Office Visit Kayla Wheeler [facility] 1.2.840.114 350.1.13.10 4.2.7.2.686 [id number] [facility] 2022-01-05 09:30:00 2022-01-05 09:30:00 [id number] 2021-12-29 08:30:00 2021-12-29 08:30:00 [facility] [id number] [facility] 2021-12-21 05:12:00 2021-12-21 10:05:00 Emergency X INGE NORRIS TIMOTHY [facility] ERT [id number] [facility] 2021-12-21 05:12:00 2021-12-21 10:05:00 Emergency Inge Norris [facility] 1.2.840.114 350.1.13.10 4.2.7.2.686 [id number] [facility] 2021-12-11 13:35:00 2021-12-11 16:39:00 Emergency X NANCY MOYER [facility] ERT [id number] [facility] 2021-12-11 13:35:00 2021-12-11 16:39:00 Emergency Nancy Moyer [facility] 1.2.840.114 350.1.13.10 4.2.7.2.686 [id number] [facility] 2021-12-04 00:00:00 2021-12-04 00:00:00 Refill Chema Navarrete [facility] 1.2.840.114 350.1.13.10 4.2.7.2.686 [id number] [id number] [facility] 2021-12-03 15:00:00 2021-12-03 15:15:00 Laboratory Only Only, Pcp [address] Test Jamari Lauren [facility] 1.2.840.114 350.1.13.10 4.2.7.2.686 [id number] [facility] 2021-12-03 15:00:00 2021-12-03 15:00:00 Outpatient R JAMARI LAUREN [facility] [id number] [facility] 2021-12-03 00:00:00 2021-12-03 00:00:00 Refill Flori Tong [facility] 1.2.840.114 350.1.13.10 4.2.7.2.686 [id number] [id number] [facility] 2021-09-24 00:00:00 2021-09-24 00:00:00 Refill Chema Navarrete [facility] 1.2.840.114 350.1.13.10 4.2.7.2.686 [id number] [id number] [facility] 2021-09-10 15:49:00 2021-09-10 16:41:00 Emergency X JONATHAN SHANKS [facility] ERT [id number] [facility] 2021-09-10 15:49:00 2021-09-10 16:41:00 Emergency Jonathan Shanks [facility] 1.2.840.114 350.1.13.10 4.2.7.2.686 [id number] [facility] 2021-09-10 00:00:00 2021-09-10 00:00:00 Alex RodgersodiliaChema michaels [facility] 1.2.840.114 350.1.13.10 4.2.7.2.686 [id number] 044 [id number] [facility] 2021-06-22 00:00:00 2021-06-22 00:00:00 [facility].2840.114 350.1.13.10 4.2.7.2.686 [id number] [id number] [facility] 2021-06-20 15:01:13 2021-06-20 15:16:13 Laboratory Only Only, Pcp [address] Test Jamari Lauren [facility] 1.2840.114 350.1.13.10 4.2.7.2.686 [id number] [id number] [facility] [facility] 2021-06-20 15:00:00 2021-06-20 15:00:00 Outpatient JAMARI LONG [facility] [id number] [facility] 2021-06-03 14:30:00 2021-06-03 14:30:00 Outpatient RAMIRO ELLISON [facility] [id number] [facility] 2021-05-28 15:00:00 2021-05-28 15:00:00 Outpatient KEYONA LOZADA [facility] [id number] [facility] 2021-05-07 14:30:00 2021-05-07 14:30:00 Outpatient MANOJ KERNS [facility] [id number] [facility] 2021-04-28 00:00:00 2021-04-28 00:00:00 [facility] [employer] [facility] BLDG. 1.2840.114 350.1.13.10 4.2.7.2.686 [id number] [facility] 2021-03-26 15:09:29 2021-03-26 15:38:51 [facility].0.114 350.1.13.10 4.2.7.2.686 [id number] 136 [id number] [facility] 2021-03-26 15:30:00 2021-03-26 15:30:00 Outpatient R ALAN [facility] [id number] [facility] 2021-03-26 00:00:00 2021-03-26 00:00:00 Orders Only Doctor Unassigned, Stewart [facility] 1.114 350.1.13.10 4.2.7.2.686 [id number] [id number] [facility] 2021-03-12 14:30:00 2021-03-12 14:30:00 Outpatient R ALAN [facility] [id number] [facility] 2021-03-11 00:00:00 2021-03-11 00:00:00 Telephone Chema Navarrete [facility] 1..114 350.1.13.10 4.2.7.2.686 [id number] 044 [id number] [facility] 2021-03-07 00:00:00 2021-03-07 00:00:00 Patient Secure Msg Doctor Unassigned, Stewart [facility] [employer] BLDG 1.20.114 350.1.13.10 4.2.7.2.686 [id number] [facility] 2021-03-07 00:00:00 2021-03-07 00:00:00 Patient Secure Msg Doctor Unassigned, Stewart [facility] 1.20.114 350.1.13.10 4.2.7.2.686 [id number] 019 [id number] [facility] 2021-03-05 08:17:31 2021-03-05 12:07:08 Office Visit Chema Navarrete Juliet Rama [facility] 1.2.840.114 350.1.13.10 4.2.7.2.686 [id number] 044 [id number] [facility] 2021-03-05 09:26:10 2021-03-05 09:41:10 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 Visit Pcp-Lab Pdamini Evans Rama [facility] 1.2.840.114 350.1.13.10 4.2.7.2.686 [id number] [facility] 2021-03-05 08:25:00 2021-03-05 08:25:00 Outpatient R [facility] [id number] [facility] 2021-03-03 00:00:00 2021-03-03 00:00:00 Refill Flori Tong [facility] 1.2.840.114 350.1.13.10 4.2.7.2.686 [id number] 044 [id number] [facility] 2021-02-24 00:00:00 2021-02-24 00:00:00 Refill Flori Tong [facility] 1.2.840.114 350.1.13.10 4.2.7.2.686 [id number] 044 [id number] [facility] 2021-02-12 15:15:00 2021-02-12 15:15:00 Outpatient R KEYONA PHILLIPS [facility] [id number] [facility] 2021-02-06 15:00:00 2021-02-06 15:00:00 Outpatient R AIDA PLAZA [facility] [id number] [facility] 2020-12-24 00:00:00 2020-12-24 00:00:00 Patient Outreach Julio Tapia [facility] 1.2.840.114 350.1.13.10 4.2.7.2.686 [id number] [facility] 2020-12-18 00:00:00 2020-12-18 00:00:00 Patient Secure g Flori Tong [facility] 1.2.840.114 350.1.13.10 4.2.7.2.686 [id number] 044 [id number] [facility] 2020-11-15 15:20:42 2020-11-15 15:35:42 Laboratory Only Nurse, Gal Pcp Assessment Clinic Samuel Perez [facility] 1.2.840.114 350.1.13.10 4.2.7.2.686 [id number] [id number] [facility] 2020-11-15 15:30:00 2020-11-15 15:30:00 Outpatient R SAMUEL PEREZ [facility] [id number] [facility] 2020-11-15 00:00:00 2020-11-15 00:00:00 Letter (Out) Vivian White [facility] 1.2.840.114 350.1.13.10 4.2.7.2.686 [id number] [facility] 2020-09-21 00:00:00 2020-09-21 00:00:00 Telephone Fatuma Borges [facility] 1.2.840.114 350.1.13.10 4.2.7.2.686 [id number] [id number] [facility] 2020-09-20 13:05:31 2020-09-20 13:20:31 Laboratory Only Only, Pcp Test Jamari Lauren [facility] 1.2.840.114 350.1.13.10 4.2.7.2.686 [id number] [facility] 2020-09-20 13:00:00 2020-09-20 13:00:00 Outpatient JAMARI LONG [facility] [id number] [facility] 2020-09-20 00:00:00 2020-09-20 00:00:00 Refill Flori Tong [facility] 1..114 350.1.13.10 4.2.7.2.686 [id number] [id number] [facility] 2020-09-18 00:00:00 2020-09-18 00:00:00 Patient Secure Msg Doctor Unassigned, Stewart [facility] 1.114 350.1.13.10 4.2.7.2.686 [id number] [id number] [facility] 2020-09-17 16:00:00 2020-09-17 16:00:00 Outpatient SAMUEL COLVIN [facility] [id number] [facility] 2020-09-17 15:28:59 2020-09-17 15:43:59 Laboratory Only Nurse, Gal Pcp Assessment Clinic Samuel Perez [facility] 1..114 350.1.13.10 4.2.7.2.686 [id number] [facility] 2020-09-17 00:00:00 2020-09-17 00:00:00 Refill Flori Tong [facility] 1.114 350.1.13.10 4.2.7.2.686 [id number] [facility] 2020-08-29 08:00:00 2020-08-29 08:00:00 Outpatient FLORI LANZA [facility] [id number] [facility] 2020-08-26 00:00:00 2020-08-26 00:00:00 Refill Flori Tong [facility] 1..114 350.1.13.10 4.2.7.2.686 [id number] [facility] 2020-07-02 08:00:00 2020-07-02 08:00:00 Outpatient R [facility] [id number] [facility] 2020-06-25 00:00:00 2020-06-25 00:00:00 Refill Flori Tong [facility] 1.84.114 350.1.13.10 4.2.7.2.686 [id number] 044 [id number] [facility] 2020-06-12 10:23:35 2020-06-12 11:22:58 [facility] 350[facility]1.13.10 4.2.7.2.686 [id number] [facility] 2020-06-12 10:30:00 2020-06-12 10:30:00 [id number] [facility] 2020-05-20 08:39:14 2020-05-20 09:32:33 [facility] 10.12.840.114 350.1.13.10 4.2.7.2.686 [id number] [facility] 2020-05-20 08:45:00 2020-05-20 08:45:00 [facility] [id number] [facility] 2020-05-08 08:45:00 2020-05-08 08:45:00 Outpatient R ALAN [facility] [id number] [facility] 2020-05-08 08:28:28 2020-05-08 08:43:28 Office Visit Phillips, [facility] ..114 350.1.13.10 4.2.7.2.686 [id number] [facility] 2020-05-07 00:00:00 2020-05-07 00:00:00 Orders Only Doctor Unassigned, Stewart [facility] 1.2840.114 350.1.13.10 4.2.7.2.686 [id number] [facility] 2020-05-03 14:15:00 2020-05-03 14:15:00 [id number] 2020-05-03 12:33:03 2020-05-03 12:48:03 Laboratory Only Only, Ad[facility] 1.2.114 350.1.13.10 4.2.7.2.686 [id number] [facility] 2020-04-17 12:45:03 2020-04-17 15:33:50 [facility] [employer] [facility] BLDG. 1..840.114 350.1.13.10 4.2.7.2.686 [id number] 136 [id number] [facility] 2020-04-17 13:00:00 2020-04-17 13:00:00 [facility] [id number] [facility] 2020-04-10 13:15:00 2020-04-10 13:15:00 [facility] [id number] [facility] 2020-04-10 12:59:20 2020-04-10 13:14:20 Office Visit Alan [facility] [employer] [facility] BLDG. 1..840.114 350.1.13.10 4.2.7.2.686 [id number] [facility] 2020-04-04 13:30:00 2020-04-04 13:30:00 Outpatient R MACY PROCTOR [facility] [id number] [facility] 2020-04-04 10:19:28 2020-04-04 10:34:28 Laboratory Only Only, Adc Test Macy Proctor A [facility] 1.2840.114 350.1.13.10 4.2.7.2.686 [id number] [facility] 2020-04-04 00:00:00 2020-04-04 00:00:00 Orders Only Doctor Unassigned, Stewart [facility] 1.20.114 350.1.13.10 4.2.7.2.686 [id number] [id number] [facility] 2020-03-20 00:00:00 2020-03-20 00:00:00 Telephone Phillips [facility] [employer] BLDG. 1..84.114 350.1.13.10 4.2.7.2.686 [id number] [facility] 2020-03-08 00:00:00 2020-03-08 00:00:00 Patient Secure Msg Doctor Unassigned, Stewart [facility] 1.2.114 350.1.13.10 4.2.7.2.686 [id number] [id number] [facility] 2020-03-06 09:45:06 2020-03-06 11:00:47 Office Visit Alan [facility] [employer] BLDG. 1.84.114 350.1.13.10 4.2.7.2.686 [id number] 136 [id number] [facility] 2020-03-06 10:00:00 2020-03-06 10:00:00 Outpatient R KEYONA PHILLIPS [facility] [id number] [facility] 2020-03-06 00:00:00 2020-03-06 00:00:00 Telephone Phillips [facility] [employer] BLDG. 1.2.840.114 350.1.13.10 4.2.7.2.686 [id number] [facility] 2020-02-23 15:30:00 2020-02-23 15:30:00 Outpatient R TRISTEN TONGUEL [facility] [id number] [facility] 2020-02-23 08:07:31 2020-02-23 08:37:31 Telemedici ne Visit Tristen Tongblaine Abbott [facility] 1.2.840.114 350.1.13.10 4.2.7.2.686 [id number] [facility] 2020-02-22 00:00:00 2020-02-22 00:00:00 Telephone Skyler Prieto [facility] 1.2.840.114 350.1.13.10 4.2.7.2.686 [id number] 044 [id number] [facility] 2020-02-19 10:12:29 2020-02-19 11:09:11 [facility] [employer] BLD[facility] 1.2840.114 350.1.13.10 4.2.7.2.686 [id number] 136 [id number] [facility] 2020-02-19 10:30:00 2020-02-19 10:30:00 Outpatient R KEYONA PHILLIPS [facility] [id number] [facility] 2020-02-19 00:00:00 2020-02-19 00:00:00 Orders Only Doctor Unassigned, Stewart [facility] 1.2.840.114 350.1.13.10 4.2.7.2.686 [id number] [id number] [facility] 2020-02-15 00:00:00 2020-02-15 00:00:00 Refill Flori Tong [facility] 1.2.840.114 350.1.13.10 4.2.7.2.686 [id number] [id number] [facility] 2020-02-12 15:00:00 2020-02-12 15:00:00 Outpatient R SKYLER PRIETO [facility] [id number] [facility] 2020-02-12 07:14:07 2020-02-12 07:34:07 Telemedici ne Visit Skyler Prieto [facility] 1.2.840.114 350.1.13.10 4.2.7.2.686 [id number] [facility] 2020-02-09 00:00:00 2020-02-09 00:00:00 Telephone Flori Tong [facility] 1.2840.114 350.1.13.10 4.2.7.2.686 [id number] 044 [id number] [facility] 2020-01-30 00:00:00 2020-01-30 00:00:00 Telephone Keyona Phillips [facility] [employer] BLDG. 1.2840.114 350.1.13.10 4.2.7.2.686 [id number] 136 [id number] [facility] 2020-01-18 00:00:00 2020-01-18 00:00:00 Refill Flori Tong [facility] 1.2840.114 350.1.13.10 4.2.7.2.686 [id number] 044 [id number] [facility] 2019-06-06 00:00:00 2019-06-06 00:00:00 Case Management Annabelle Rabago [facility] 1.2.840.114 350.1.13.10 4.2.7.2.686 [id number] [facility] 2019-05-23 08:09:31 2019-05-23 10:46:58 Office Visit Flori Tong [facility] 1.2840.114 350.1.13.10 4.2.7.2.686 [id number] 044 [id number] [facility] 2019-05-23 09:12:29 2019-05-23 09:22:29 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 Visit Pcp-Lab Flori Tong [facility] 1.2.840.114 350.1.13.10 4.2.7.2.686 [id number] [facility] Results Test Description Test Time Test Comments Results Result Co mments Source [facility] (NA, K, CL, CO2, GLUCOSE, BUN, CREATININE, CA)2022-07-19 23:05:18* Test Item Value Reference Range Interpretation Comme nts NA (test code = 4078788569) 136 mmol/L 135-145 K (test code = 4363691921) 4.3 mmol/L 3.5-5 CL (test code = 5280520557) 91 mmol/L 98-108 L CO2 TOTAL (test code = 8743986715) 40 mmol/L 23-31 H AGAP (test code = 7922163689) 2-16 BUN (test code = 6719457397) 23 mg/dL 7-23 GLUCOSE (test code = 0309337114) 131 mg/dL 70-110 H CREATININE (test code = 9794667872) 1.01 mg/dL 0.6-1.25 CALCIUM (test code = 6416175259) 7.8 mg/dL 8.6-10.6 L eGFR (test code = 4650519137) mL/min/1.73m2 MIGNON (test code = MIGNON) Association of Glomerular Filtration Rate (GFR) and Staging of Kidney Disease* + --+ --+ ------+| GFR (mL/min/1.73 m2) ?| With Kidney Damage ?| ?Without Kidney Damage+ --------+ --------+ +| ?>90 ?| ?Stage one ?| ? Normal ?+ ---+ ---+ -------+| ?60-89 ?| ?Stage two ?| ? Decreased GFR ? + --+ --+ ------+| ?30-59 ?| ?Stage three ?| ? Stage three ? + --+ --+ ------+| ?15-29 ?| ?Stage four ? | ? Stage four ?+ ---+ ---+ -------+| ?<15 (or dialysis) ? ?| ?Stage five ? | ? Stage five ?+ ---+ ---+ -------+ *Each stage assumes the associated GFR level has been in effect for at least three months. ?Stages 1 to 5, with or without kidney disease, indicate chronic kidney disease. Notes: Determination of stages one and two (with eGFR >59mL/min/1.73 m2) requires estimation of kidney damage for at least three months as defined by structural or functional abnormalities of the kidney, manifested by either:Pathological abnormalities or Markers of kidney damage (including abnormalities in the composition of the blood or urine or abnormalities in imaging tests). Lab Interpretation (test code = 86400-4) Abnormal [facility] 20 + Lactic Ifil9092-48-30 15:44:43* Test Item Value Reference Range Interpretation Comme nts PH (test code = 2) 7.35-7.45 PCO2 (test code = 0040718297) See_Comment H [Automated messa ge] The system which generated this result transmitted reference range: 35 - 45 mmHg. The reference range was not used to interpret this result as normal/abnormal. PO2 (test code = 6222932456) See_Comment L [Automated messa ge] The system which generated this result transmitted reference range: 80 - 100 mmHg. The reference range was not used to interpret this result as normal/abnormal. HCO3 (test code = 3699237081) See_Comment H [Automated messa ge] The system which generated this result transmitted reference range: 22 - 26 mEq/L. The reference range was not used to interpret this result as normal/abnormal. BE (test code = 4166789343) See_Comment H [Automated messa ge] The system which generated this result transmitted reference range: -3.0 - 3.0 mEq/L. The reference range was not used to interpret this result as normal/abnormal. THB (test code = 8405483430) 11.3 g/dL 13.5-18 L %O2HB (test code = 0166895369) 91.0 % 94-99 L %COHB ART (test code = 6170554398) 0.5 % 0-1.5 %METHB ART (test code = 5756574816) 0.3 % 0.4-1.5 L VOL%O2 ART (test code = 5970869048) 14.5 % 15-23 L NA (test code = 2550220106) 136 mmol/L 135-145 K+ (test code = 7060016878) 2.9 mmol/L 3.5-5 LL AC CA IONZ (test code = 3412886551) 4.20 mg/dL 4.5-5.3 L GLUCOSE (test code = 8625118442) 184 mg/dL 70-110 H LACTIC ACID (test code = 0813834346) 2.54 mmol/L 0.5-2.2 H Lab Interpretation (test code = 71066-1) Abnormal [facility] 12:37:50* Test Item Value Reference Range Interpretation Comme nts MAGNESIUM (test code = 9855838505) 1.8 mg/dL 1.7-2.4 Lab Interpretation (test cod e = 58424-8) Normal [facility]OLIC PAN[facility] (39417)2022-07-19 11:25:02* Test Item Value Reference Range Interpretation Comme nts NA (test code = 7004742956) 139 mmol/L 135-145 K (test code = 6361578733) 3.1 mmol/L 3.5-5 L CL (test code = 5105505536) 89 mmol/L 98-108 L CO2 TOTAL (test code = 8897134703) 41 mmol/L 23-31 H AGAP (test code = 4751872502) 2-16 BUN (test code = 5662697585) 20 mg/dL 7-23 GLUCOSE (test code = 0989284071) 93 mg/dL 70-110 CREATININE (test code = 7145092234) 0.79 mg/dL 0.6-1.25 TOTAL BILI (test code = 2319530371) 0.6 mg/dL 0.1-1.1 CALCIUM (test code = 7250179213) 7.3 mg/dL 8.6-10.6 L T PROTEIN (test code = 3441556106) 5.8 g/dL 6.3-8.2 L ALBUMIN (test code = 5861251108) 2.9 g/dL 3.5-5 L ALK PHOS (test code = 3442024022) 44 U/L 34-122 ALTv (test code = 1742-6) 20 U/L 5-50 AST(SGOT) (test code = 4361829723) 21 U/L 13-40 eGFR (test code = 2297839634) mL/min/1.73m2 MIGNON (test code = MIGNON) Association of Glomerular Filtration Rate (GFR) and Staging of Kidney Disease* + --+ --+ ------+| GFR (mL/min/1.73 m2) ?| With Kidney Damage ?| ?Without Kidney Damage+ --------+ --------+ +| ?>90 ?| ?Stage one ?| ? Normal ?+ ---+ ---+ -------+| ?60-89 ?| ?Stage two ?| ? Decreased GFR ? + --+ --+ ------+| ?30-59 ?| ?Stage three ?| ? Stage three ? + --+ --+ ------+| ?15-29 ?| ?Stage four ? | ? Stage four ?+ ---+ ---+ -------+| ?<15 (or dialysis) ? ?| ?Stage five ? | ? Stage five ?+ ---+ ---+ -------+ *Each stage assumes the associated GFR level has been in effect for at least three months. ?Stages 1 to 5, with or without kidney disease, indicate chronic kidney disease. Notes: Determination of stages one and two (with eGFR >59mL/min/1.73 m2) requires estimation of kidney damage for at least three months as defined by structural or functional abnormalities of the kidney, manifested by either:Pathological abnormalities or Markers of kidney damage (including abnormalities in the composition of the blood or urine or abnormalities in imaging tests). Lab Interpretation (test code = 75237-8) Abnormal [facility] 20 + Lactic Mhrb1482-73-31 03:03:50* Test Item Value Reference Range Interpretation Comme nts PH (test code = 2) 7.35-7.45 PCO2 (test code = 7937163714) See_Comment H [Automated IntheGlo] The system which generated this result transmitted reference range: 35 - 45 mmHg. The reference range was not used to interpret this result as normal/abnormal. PO2 (test code = 7719559646) See_Comment H [Automated messa ge] The system which generated this result transmitted reference range: 80 - 100 mmHg. The reference range was not used to interpret this result as normal/abnormal. HCO3 (test code = 4700114637) See_Comment H [Automated messa ge] The system which generated this result transmitted reference range: 22 - 26 mEq/L. The reference range was not used to interpret this result as normal/abnormal. BE (test code = 7097963650) See_Comment H [Automated messa ge] The system which generated this result transmitted reference range: -3.0 - 3.0 mEq/L. The reference range was not used to interpret this result as normal/abnormal. THB (test code = 4950423519) 10.9 g/dL 13.5-18 L %O2HB (test code = 8048187193) 97.3 % 94-99 %COHB ART (test code = 5617686313) 0.9 % 0-1.5 %METHB ART (test code = 4127574854) 0.3 % 0.4-1.5 L VOL%O2 ART (test code = 6970715976) 15.1 % 15-23 NA (test code = 4850205805) 137 mmol/L 135-145 K+ (test code = 5225389296) 3.2 mmol/L 3.5-5 L AC CA IONZ (test code = 2279593371) 4.20 mg/dL 4.5-5.3 L GLUCOSE (test code = 6103159546) 141 mg/dL 70-110 H LACTIC ACID (test code = 6770672827) 1.58 mmol/L 0.5-2.2 Lab Interpretation (test code = 86069-1) Abnormal [facility] 14:56:02* Test Item Value Reference Range Interpretation Comme nts MAGNESIUM (test code = 7393715662) 1.9 mg/dL 1.7-2.4 Lab Interpretation (test cod e = 19278-0) Normal [facility] 20 + Lactic Jbpu1542-51-39 13:32:25* Test Item Value Reference Range Interpretation Comme nts PH (test code = 2) 7.35-7.45 PCO2 (test code = 8275757617) See_Comment H [Automated messa ge] The system which generated this result transmitted reference range: 35 - 45 mmHg. The reference range was not used to interpret this result as normal/abnormal. PO2 (test code = 5568648143) See_Comment H [Automated messa ge] The system which generated this result transmitted reference range: 80 - 100 mmHg. The reference range was not used to interpret this result as normal/abnormal. HCO3 (test code = 9459002954) See_Comment H [Automated messa ge] The system which generated this result transmitted reference range: 22 - 26 mEq/L. The reference range was not used to interpret this result as normal/abnormal. BE (test code = 3834593053) See_Comment H [Automated messa ge] The system which generated this result transmitted reference range: -3.0 - 3.0 mEq/L. The reference range was not used to interpret this result as normal/abnormal. THB (test code = 0240914842) 10.6 g/dL 13.5-18 L %O2HB (test code = 7311508775) 98.1 % 94-99 %COHB ART (test code = 3157599617) 0.8 % 0-1.5 %METHB ART (test code = 1607664326) 0.3 % 0.4-1.5 L VOL%O2 ART (test code = 4283253365) 14.9 % 15-23 L NA (test code = 1484391291) 138 mmol/L 135-145 K+ (test code = 9403650527) 3.3 mmol/L 3.5-5 L AC CA IONZ (test code = 5168309699) 4.20 mg/dL 4.5-5.3 L GLUCOSE (test code = 1098329472) 147 mg/dL 70-110 H LACTIC ACID (test code = 5758087735) 1.00 mmol/L 0.5-2.2 Lab Interpretation (test code = 67551-6) Abnormal [facility]. METABOLIC PANEL (87823)2022-07-18 11:35:32* Test Item Value Reference Range Interpretation Comme nts NA (test code = 1085150636) 137 mmol/L 135-145 K (test code = 3880967904) 3.6 mmol/L 3.5-5 CL (test code = 0510912305) 90 mmol/L 98-108 L CO2 TOTAL (test code = 5057766166) 39 mmol/L 23-31 H AGAP (test code = 0540135899) 2-16 BUN (test code = 4197642845) 25 mg/dL 7-23 H GLUCOSE (test code = 2742710014) 119 mg/dL 70-110 H CREATININE (test code = 4105757503) 0.89 mg/dL 0.6-1.25 TOTAL BILI (test code = 3126638479) 0.5 mg/dL 0.1-1.1 CALCIUM (test code = 3076766932) 7.8 mg/dL 8.6-10.6 L T PROTEIN (test code = 7796642329) 5.7 g/dL 6.3-8.2 L ALBUMIN (test code = 5769710365) 3.1 g/dL 3.5-5 L ALK PHOS (test code = 0256726747) 51 U/L 34-122 ALTv (test code = 1742-6) 22 U/L 5-50 AST(SGOT) (test code = 1219840490) 21 U/L 13-40 eGFR (test code = 1115938472) mL/min/1.73m2 MIGNON (test code = MIGNON) Association of Glomerular Filtration Rate (GFR) and Staging of Kidney Disease* + --+ --+ ------+| GFR (mL/min/1.73 m2) ?| With Kidney Damage ?| ?Without Kidney Damage+ --------+ --------+ +| ?>90 ?| ?Stage one ?| ? Normal ?+ ---+ ---+ -------+| ?60-89 ?| ?Stage two ?| ? Decreased GFR ? + --+ --+ ------+| ?30-59 ?| ?Stage three ?| ? Stage three ? + --+ --+ ------+| ?15-29 ?| ?Stage four ? | ? Stage four ?+ ---+ ---+ -------+| ?<15 (or dialysis) ? ?| ?Stage five ? | ? Stage five ?+ ---+ ---+ -------+ *Each stage assumes the associated GFR level has been in effect for at least three months. ?Stages 1 to 5, with or without kidney disease, indicate chronic kidney disease. Notes: Determination of stages one and two (with eGFR >59mL/min/1.73 m2) requires estimation of kidney damage for at least three months as defined by structural or functional abnormalities of the kidney, manifested by either:Pathological abnormalities or Markers of kidney damage (including abnormalities in the composition of the blood or urine or abnormalities in imaging tests). Lab Interpretation (test code = 91965-9) [facility] + Lactic [id number] 10:14:53* Test Item Value Reference Range Interpretation Comme nts PH (test code = 2) 7.35-7.45 L PCO2 (test code = 8756370895) See_Comment H [Automated messa ge] The system which generated this result transmitted reference range: 35 - 45 mmHg. The reference range was not used to interpret this result as normal/abnormal. PO2 (test code = 5333027094) See_Comment [Automated messa ge] The system which generated this result transmitted reference range: 80 - 100 mmHg. The reference range was not used to interpret this result as normal/abnormal. HCO3 (test code = 9049192467) See_Comment H [Automated messa ge] The system which generated this result transmitted reference range: 22 - 26 mEq/L. The reference range was not used to interpret this result as normal/abnormal. BE (test code = 0439124830) See_Comment H [Automated messa ge] The system which generated this result transmitted reference range: -3.0 - 3.0 mEq/L. The reference range was not used to interpret this result as normal/abnormal. THB (test code = 5552304506) 10.9 g/dL 13.5-18 L %O2HB (test code = 6980343356) 94.8 % 94-99 %COHB ART (test code = 4999580861) 1.0 % 0-1.5 %METHB ART (test code = 8494020749) 0.1 % 0.4-1.5 L VOL%O2 ART (test code = 1392119061) 14.6 % 15-23 L NA (test code = 0375996707) 138 mmol/L 135-145 K+ (test code = 5808825353) 3.5 mmol/L 3.5-5 AC CA IONZ (test code = 2118424788) 4.30 mg/dL 4.5-5.3 L GLUCOSE (test code = 6211865803) 123 mg/dL 70-110 H LACTIC ACID (test code = 7311536336) 0.81 mmol/L 0.5-2.2 Lab Interpretation (test code = 93099-6) [facility] Lactic Nxfb3764-42-77 04:33:00* Test Item Value Reference Range Interpretation Comme nts PH (test code = 2) 7.35-7.45 PCO2 (test code = 5346691652) See_Comment H [Automated messa ge] The system which generated this result transmitted reference range: 35 - 45 mmHg. The reference range was not used to interpret this result as normal/abnormal. PO2 (test code = 9603320139) See_Comment H [Automated messa ge] The system which generated this result transmitted reference range: 80 - 100 mmHg. The reference range was not used to interpret this result as normal/abnormal. HCO3 (test code = 2216669600) See_Comment H [Automated messa ge] The system which generated this result transmitted reference range: 22 - 26 mEq/L. The reference range was not used to interpret this result as normal/abnormal. BE (test code = 6862451472) See_Comment H [Automated messa ge] The system which generated this result transmitted reference range: -3.0 - 3.0 mEq/L. The reference range was not used to interpret this result as normal/abnormal. THB (test code = 6006593793) 10.5 g/dL 13.5-18 L %O2HB (test code = 4744405152) 98.9 % 94-99 %COHB ART (test code = 8953328888) 0.8 % 0-1.5 %METHB ART (test code = 4206791698) 0.1 % 0.4-1.5 L VOL%O2 ART (test code = 2275787577) 15.1 % 15-23 NA (test code = 9315135777) 137 mmol/L 135-145 K+ (test code = 5327531941) 3.2 mmol/L 3.5-5 L AC CA IONZ (test code = 7153245025) 4.20 mg/dL 4.5-5.3 L GLUCOSE (test code = 5946825816) 155 mg/dL 70-110 H LACTIC ACID (test code = 6350471356) 2.45 mmol/L 0.5-2.2 H Lab Interpretation (test code = 13957-1) [facility] Lactic Hcbf8944-78-98 21:29:41* Test Item Value Reference Range Interpretation Comme nts PH (test code = 2) 7.35-7.45 L PCO2 (test code = 1652183876) See_Comment H [Automated messa ge] The system which generated this result transmitted reference range: 35 - 45 mmHg. The reference range was not used to interpret this result as normal/abnormal. PO2 (test code = 7811195088) See_Comment H [Automated messa ge] The system which generated this result transmitted reference range: 80 - 100 mmHg. The reference range was not used to interpret this result as normal/abnormal. HCO3 (test code = 0429190994) See_Comment H [Automated messa ge] The system which generated this result transmitted reference range: 22 - 26 mEq/L. The reference range was not used to interpret this result as normal/abnormal. BE (test code = 8195622431) See_Comment H [Automated messa ge] The system which generated this result transmitted reference range: -3.0 - 3.0 mEq/L. The reference range was not used to interpret this result as normal/abnormal. THB (test code = 4601417913) 11.1 g/dL 13.5-18 L %O2HB (test code = 6762462965) 98.4 % 94-99 %COHB ART (test code = 5734773154) 1.1 % 0-1.5 %METHB ART (test code = 4158214467) 0.1 % 0.4-1.5 L VOL%O2 ART (test code = 2940694471) 15.8 % 15-23 NA (test code = 0606163142) 141 mmol/L 135-145 K+ (test code = 2433163756) 3.8 mmol/L 3.5-5 AC CA IONZ (test code = 4008129891) 4.30 mg/dL 4.5-5.3 L GLUCOSE (test code = 8918175278) 116 mg/dL 70-110 H LACTIC ACID (test code = 6549770697) 1.16 mmol/L 0.5-2.2 Lab Interpretation (test code = 29102-7) [facility] Lactic Vqqf5414-06-35 10:58:47* Test Item Value Reference Range Interpretation Comme nts PH (test code = 2) 7.35-7.45 L PCO2 (test code = 2357919570) See_Comment H [Automated messa ge] The system which generated this result transmitted reference range: 35 - 45 mmHg. The reference range was not used to interpret this result as normal/abnormal. PO2 (test code = 9915710115) See_Comment L [Automated messa ge] The system which generated this result transmitted reference range: 80 - 100 mmHg. The reference range was not used to interpret this result as normal/abnormal. HCO3 (test code = 4024790053) See_Comment H [Automated messa ge] The system which generated this result transmitted reference range: 22 - 26 mEq/L. The reference range was not used to interpret this result as normal/abnormal. BE (test code = 5353497655) See_Comment H [Automated messa ge] The system which generated this result transmitted reference range: -3.0 - 3.0 mEq/L. The reference range was not used to interpret this result as normal/abnormal. THB (test code = 4705137765) 11.0 g/dL 13.5-18 L %O2HB (test code = 8380846320) 93.6 % 94-99 L %COHB ART (test code = 9771490841) 1.1 % 0-1.5 %METHB ART (test code = 0981962396) 0.3 % 0.4-1.5 L VOL%O2 ART (test code = 2557381940) 14.5 % 15-23 L NA (test code = 3980067010) 140 mmol/L 135-145 K+ (test code = 6346600915) 3.5 mmol/L 3.5-5 AC CA IONZ (test code = 3072127537) 4.30 mg/dL 4.5-5.3 L GLUCOSE (test code = 4382680757) 117 mg/dL 70-110 H LACTIC ACID (test code = 2633204574) 0.97 mmol/L 0.5-2.2 Lab Interpretation (test code = 62400-0) [facility] + Lactic Fvhl6989-04-49 20:05:55* Test Item Value Reference Range Interpretation Comme nts PH (test code = 2) 7.35-7.45 L PCO2 (test code = 3476057917) See_Comment H [Automated messa ge] The system which generated this result transmitted reference range: 35 - 45 mmHg. The reference range was not used to interpret this result as normal/abnormal. PO2 (test code = 9335730399) See_Comment [Automated messa ge] The system which generated this result transmitted reference range: 80 - 100 mmHg. The reference range was not used to interpret this result as normal/abnormal. HCO3 (test code = 6931020617) See_Comment H [Automated messa ge] The system which generated this result transmitted reference range: 22 - 26 mEq/L. The reference range was not used to interpret this result as normal/abnormal. BE (test code = 0206909263) See_Comment H [Automated messa ge] The system which generated this result transmitted reference range: -3.0 - 3.0 mEq/L. The reference range was not used to interpret this result as normal/abnormal. THB (test code = 6446615833) 11.6 g/dL 13.5-18 L %O2HB (test code = 6399069414) 95.7 % 94-99 %COHB ART (test code = 5842577612) 1.0 % 0-1.5 %METHB ART (test code = 6969706692) 0.2 % 0.4-1.5 L VOL%O2 ART (test code = 3713858310) 15.7 % 15-23 NA (test code = 0247167979) 141 mmol/L 135-145 K+ (test code = 1958307537) 3.7 mmol/L 3.5-5 AC CA IONZ (test code = 8453105042) 4.30 mg/dL 4.5-5.3 L GLUCOSE (test code = 6788885374) 145 mg/dL 70-110 H LACTIC ACID (test code = 0697108071) 1.34 mmol/L 0.5-2.2 Lab Interpretation (test code = 81831-2) [facility]normal [facility]2022-[facility]-16 19:07:43* Test Item Value Reference Range Interpretation Comme nts LVOT stroke volume (test code = 2751968661) 67.30 cm3 EF(Teich) (test code = 5773829354) 60.80 % LVIDD (test code = 3463859070) 5.20 cm LVIDS (test code = 2825109779) 3.50 cm Left Ventricular End Systolic Volume by Teichholz Method (test code = 8873006) 50.2 mL Left Ventricular End Diastolic Volume by Teichholz Method (test code = 4404823) 128.1 mL IVS (test code = 0497899394) 1.30 cm LVPWD (test code = 6799260586) 1.26 cm LVOT diameter (test code = 8038844130) 2.12 cm LVOT area (test code = 7878494581) 3.50 cm2 FS (test code = 0023218885) 33 % MV Peak E Martin (test code = 3737197318) 135.3 cm/s MV Peak A Martin (test code = 9276848770) 145.7 cm/s E/A ratio (test code = 6040189895) ratio E wave decelartion time (test code = 9489332983) 0.15 s LA Volume Index (BP) (test code = 5051558007) 34.1 mL/m2 LA volume (BP) (test code = 8434394837) 73.3 mL LVOT peak martin (test code = 1299854484) 125.1 cm/s LVOT mn grad (test code = 3912575920) mmHg BSA (test code = 9292787353) 2.15 m2 LA size (test code = 5775539077) 4.1 cm LAV(MOD-sp2) (test code = 5338539088) 57.50 mL LAV(MOD-sp4) (test code = 0854666530) 85.00 mL TASV (test code = 6909916165) 13.4 cm/s Tapse (test code = 1451889405) 2.48 cm Aortic valve mean velocity (test code = 8482754773) 138.6 cm/s Ao peak martin (test code = 9747529653) 207.7 cm/s Ao VTI (test code = 0280640594) 34.2 cm AV LVOT peak gradient (test code = 8792898480) mmHg LVOT peak VTI (test code = 9249980720) 19.1 cm AV area by cont VTI (test code = 4034050363) 2.0 cm2 AV area peak martin (test code = 7961477772) 2.1 cm2 LV V1 mean (test code = 8591181881) 79.30 cm/s Ao max PG (test code = 2961339312) 17.80 mm[Hg] Ao root diam (test code = 4588696802) 3.20 cm AV peak gradient (test code = 4886453185) mmHg AV valve area (test code = 6420128493) 1.97 cm2 AV mean gradient (test code = 8376821208) mmHg Aortic root (test code = 8917527299) 3.2 cm Ao root annulus (test code = 7087036521) 3.2 cm PW (test code = 2819332830) 1.26 cm 0.6-1.1 EF - 2D (test code = 91117015) 60.80 % Interventricular Septum Diastolic Thickness by 2D (test code = 5354008) 1.30 cm Height (test code = 3111553461) in Weight (test code = 8224987354) lbs Systolic BP (test code = 0836194303) mmHg Diastolic BP (test code = 2646360673) mmHg Heart Rate (test code = 4080763168) bpm Radiology Study observation (narrative) (test code = 88100-4) MIGNON (test code = MIGNON) ?Left?Ventricle: Left ventricle size is normal. Normal wall thickness. Septal motion is normal. . No regional wall motion abnormalities. Normal systolic function with a visually estimated EF of 55 - 60%. There is grade 2 diastolic dysfunction. Elevated left ventricular filling pressure. ?Right?Ventricle: Normal systolic function. ?Tricuspid?Valve: Insufficient tricuspid regurgitation jet to estimate RVSP.Trace transvalvular regurgitation. ?Aortic?Valve: No hemodynamically significant . ?IVC/SVC: IVC diameter is greater than 21 mm and decreases less than 50% during inspiration; therefore the estimated right atrial pressure is elevated (~15 mmHg). ?Pericardium: No pericardial effusion. Left VentricleLeft ventricle size is normal. Normal wall thickness. Septal motion is normal. . No regional wall motion abnormalities. Normal systolic function with a visually estimated EF of 55 - 60%. There is grade 2 diastolic dysfunction. Elevated left ventricular filling pressure.Right VentricleRight ventricle size is normal. Normal systolic function.Left AtriumLeft atrium is mildly dilated. Left atrium volume index is 34.1 mL/m2.Right AtriumRight atrium size is normal.IVC/SVCIVC diameter is greater than 21 mm and decreases less than 50% during inspiration; therefore the estimated right atrial pressure is elevated (~15 mmHg).Mitral ValveMitral valve structure is normal. Trace transvalvular regurgitation. No stenosis.Tricuspid ValveTricuspid valve structure is normal. Insufficient tricuspid regurgitation jet to estimate RVSP.Trace transvalvular regurgitation. No stenosis.Aortic ValveAortic valve structure is normal. Trace transvalvular regurgitation. No hemodynamically significant .Pulmonic ValveNot well visualized. No transvalvular regurgitation. No stenosis.Ascending AortaNormal sized annulus and sinus of Valsalva.PericardiumTh e pericardium is normal. No pericardial effusion.Study DetailsStudy quality was adequate. A complete echocardiogram was performed using 2D, color flow Doppler and spectral Doppler. 5 mL of Lumason ultrasound enhancing agent used. Patient exhibited sinus tachycardia. [facility] Whole Uxcgk0476-43-17 17:30:30* Test Item Value Reference Range Interpretation Comme nts LACTIC ACID (test code = 8610098933) 1.14 mmol/L 0.5-2.2 Lab Interpretation (test cod e = 90076-2) Normal [facility]TR[facility] H3556-91-87 10:43:53* Test Item Value Reference Range Interpretation Comments TROPONIN I (test code = 2038433733) 0.050 ng/mL See_Comment H [Automated message] The system which generated this result transmitted reference range: <=0.034. The reference range was not used to interpret this result as normal/abnormal. MIGNON (test code = MIGNON) Reference (Normal) Range (defined by the 99th percentile reference limit): <= 0.034 ng/mL Note: Cardiac troponin begins to rise 3-4 hours after the onset of ischemia. Repeat in 4-6 hours if the sample was drawn within 3-4 hours of the onset of the symptom and found normal. Diagnosis of myocardial injury is made with acute changes in cTn concentrations with at least one serial sample above the 99th percentile upper reference limit (URL), taken together with the patient's clinical presentation. Biotin has been reported to cause a negative bias, interpret results relative to patient's use of biotin. Lab Interpretation (test code = 10554-6) Abnormal [facility] HospitalN-TERMINAL UJM-JPE3953-99-06 10:43:53* Test Item Value Reference Range Interpretation Comme nts NT-proBNP (test code = 9010961084) 2270 pg/mL See_Comment H [Automated message] The system which generated this result transmitted reference range: <=125. The reference range was not used to interpret this result as normal/abnormal. MIGNON (test code = MIGNON) Biotin has been reported to cause a negative bias, interpret results relative to patient's use of biotin. Lab Interpretation (test code = 93724-3) [facility]normal [facility]. METABOLIC PANEL (43564)2022-07-16 10:32:32* Test Item Value Reference Range Interpretation Comme nts NA (test code = 8266426739) 143 mmol/L 135-145 K (test code = 5212011669) 3.9 mmol/L 3.5-5 CL (test code = 4530879864) 100 mmol/L 98-108 CO2 TOTAL (test code = 0118264212) 38 mmol/L 23-31 H AGAP (test code = 7755511835) 2-16 BUN (test code = 1564102359) 18 mg/dL 7-23 GLUCOSE (test code = 0350120058) 116 mg/dL 70-110 H CREATININE (test code = 1222390266) 0.88 mg/dL 0.6-1.25 TOTAL BILI (test code = 2412288764) 0.8 mg/dL 0.1-1.1 CALCIUM (test code = 6312165855) 8.1 mg/dL 8.6-10.6 L T PROTEIN (test code = 7117575302) 6.9 g/dL 6.3-8.2 ALBUMIN (test code = 1645420518) 4.0 g/dL 3.5-5 ALK PHOS (test code = 9670133669) 63 U/L 34-122 ALTv (test code = 1742-6) 31 U/L 5-50 AST(SGOT) (test code = 9629057751) 33 U/L 13-40 eGFR (test code = 8362354344) mL/min/1.73m2 MIGNON (test code = MIGNON) Association of Glomerular Filtration Rate (GFR) and Staging of Kidney Disease* + --+ --+ ------+| GFR (mL/min/1.73 m2) ?| With Kidney Damage ?| ?Without Kidney Damage+ --------+ --------+ +| ?>90 ?| ?Stage one ?| ? Normal ?+ ---+ ---+ -------+| ?60-89 ?| ?Stage two ?| ? Decreased GFR ? + --+ --+ ------+| ?30-59 ?| ?Stage three ?| ? Stage three ? + --+ --+ ------+| ?15-29 ?| ?Stage four ? | ? Stage four ?+ ---+ ---+ -------+| ?<15 (or dialysis) ? ?| ?Stage five ? | ? Stage five ?+ ---+ ---+ -------+ *Each stage assumes the associated GFR level has been in effect for at least three months. ?Stages 1 to 5, with or without kidney disease, indicate chronic kidney disease. Notes: Determination of stages one and two (with eGFR >59mL/min/1.73 m2) requires estimation of kidney damage for at least three months as defined by structural or functional abnormalities of the kidney, manifested by either:Pathological abnormalities or Markers of kidney damage (including abnormalities in the composition of the blood or urine or abnormalities in imaging tests). Lab Interpretation (test code = 74151-9) [facility]normal [facility]IUM2022-[facility]-06 10:32:32* Test Item Value Reference Range Interpretation Comme nts MAGNESIUM (test code = 0132288502) 2.1 mg/dL 1.7-2.4 Lab Interpretation (test cod e = 48841-0) Normal [facility] HospitalCB WITH GNXI1835-20-21 10:20:29* Test Item Value Reference Range Interpretation Comme nts WBC (test code = 6690-2) See_Comment H [Automated messa ge] The system which generated this result transmitted reference range: 4.20 - 10.70 10*3/?L. The reference range was not used to interpret this result as normal/abnormal. RBC (test code = 789-8) See_Comment [Automated messa ge] The system which generated this result transmitted reference range: 4.26 - 5.52 10*6/?L. The reference range was not used to interpret this result as normal/abnormal. HGB (test code = 718-7) 10.8 g/dL 12.2-16.4 L HCT (test code = 4544-3) 37.8 % 38.4-49.3 L MCV (test code = 787-2) 76.2 fL 81.7-95.6 L MCH (test code = 785-6) 21.8 pg 26.1-32.7 L MCHC (test code = 786-4) 28.6 g/dL 31.2-35 L RDW-SD (test code = 05709-0) 44.2 fL 38.5-51.6 RDW-CV (test code = 788-0) 16.3 % 12.1-15.4 H PLT (test code = 777-3) See_Comment [Automated messa ge] The system which generated this result transmitted reference range: 150 - 328 10*3/?L. The reference range was not used to interpret this result as normal/abnormal. MPV (test code = 10329-5) 11.7 fL 9.8-13 NRBC/100 WBC (test code = 3128781228) See_Comment [Automated [employer] ssage] The system which generated this result transmitted reference range: 0.0 - 10.0 /100 WBCs. The reference range was not used to interpret this result as normal/abnormal. NRBC x10^3 (test code = 1376643281) See_Comment [Automated messa ge] The system which generated this result transmitted reference range: 10*3/?L. The reference range was not used to interpret this result as normal/abnormal. GRAN MAT (NEUT) % (test code = 770-8) 82.2 % IMM GRAN % (test code = 4211530788) 0.70 % LYMPH % (test code = 736-9) 7.1 % MONO % (test code = 5905-5) 8.3 % EOS % (test code = 713-8) 1.0 % BASO % (test code = 706-2) 0.7 % GRAN MAT x10^3(ANC) (test code = 7358777190) 9.46 10*3/uL 1.99-6.95 H IMM GRAN x10^3 (test code = 6205830578) 0.08 10*3/uL 0-0.06 H LYMPH x10^3 (test code = 731-0) 0.82 10*3/uL 1.09-3.23 L MONO x10^3 (test code = 742-7) 0.95 10*3/uL 0.36-1.02 EOS x10^3 (test code = 711-2) 0.11 10*3/uL 0.06-0.53 BASO x10^3 (test code = 704-7) 0.08 10*3/uL 0.01-0.09 Lab Interpretation (test code = 87175-4) Abnormal [facility] Notes Date/Time Note Provider Source 2023-11-11 08:23:16 uVIpgjYBjMvx9N6DbudD fGr0b4j4MmCxo7 ca07KZzgCdy3qpu1ccGgpoeE34Ou4P3940 -02-01T08:23:16 Signed and returned to nursing staff. Thank you! 35057-8Vtvfplsgd encounter GefuCE0898-67-34P27:23:30Telephone encounter NoteTXT1.2.840.933832.1.13.104.2.7 .2.806367|[id number] for patient zjak71781-6MgtlSQCIJSDILOPJvvbkizf d C-CDA narrative textNP-FAMILY MIDLEVEL PROVIDERNP-FAMILY MIDLEVEL PROVIDERUT[address] Ge[id number] 66BDLKJDHLQFJQRSFONPLUCQ7684-52-07 T08:23:301.2.840.057026.1.72.3.15| 1.2.840.113589.1.13.104.2.7.2.7278 [id number] LEAD BUSINESS ANALYST-FAMILY MIDLEVEL PROVIDER [facility] 2023-11-10 15:31:29 7cLOEfuRxmcAkEdorUib 0tajNGjtlEpcHe v4SBMpJ/teUIqUFUZnvkp8BQsxprNY3703 -01-31T15:31:29 Images from the original note were not included.Title XIX received from [facility] Patient and placed in Lisandra Brewster's folder.FILOMENA: 09.07.23NOV: none 16519-3Jrufmyxyd encounter NdsaUV7956-71-62G02:32:31Telephone encounter NoteTXT1.2.840.831190.1.13.104.2.7 .2.865235|[id number] for patient twde04618-2RwgoGAOOVWKVCLKTiciwblm d C-CDA narrative [id number] [place] RNUT[address] VtgdYwugbxddxExcxucbtoQWVY21658046 01SJNCELINOZZFESFGCNGAGC4161-59-16 T15:32:311.2.840.454135.1.72.3.15| 1.2.840.131202.1.13.104.2.7.2.7278 [id number] Odalys Moreno RN [facility] 2023-10-26 14:53:50 2NPImiLJXigUIgEQbNZd MmreNaVeAbpRUj BHNArx7tlE01W7vxebYpOp75La1qkY3103 -01-16T14:53:50 Images from the original note were not included.Called Vini Louis at [phone] (home) advised of message on my chart from provider. Patient was agreeable with PAP therapy will submit order via parachute.Vini Louis is a 53 year old malePt is wanting to check status and discuss sleep study results.Please advise, thank Sreekanth peoples DMEThe following has been sent to the provider for completion via parachute/FAXOrders pended for [facility] [place] NISHANT companyPrescription for CPAPSleep study /data report dated - 09/28/2023 AHI 9.5Demographics - Face sheetInsurance InformationProgress Notes from office visit prior to sleep study - 09/07/2023Follow up due 31-90 days following initiation of any device. 19506-2Klwufdcol encounter MudwRN0173-06-74C25:08:24Telephone encounter NoteTXT1.2.840.879035.1.13.104.2.7 .2.967171|[id number] for patient ueqh28395-9BhfyXPKDLYUCQENDuakhngu d C-CDA narrative [id number] J Cordell RN[address] NldnAlelnxmgxZxurbrgkgAVSF04873422 07RRKXJQJHMNFQXHLDBVIFXF0809-28-15 T15:08:241.2.840.293471.1.72.3.15| 1.2.840.971113.1.13.104.2.7.2.7278 [id number] Esther Paulino RN [facility] 2023-10-26 13:52:30 498DESSziawOBJYyRbwe Vmdcl59eeqCbI+ gidxFiykWqGGudHOy54A2nAEbGvmxX0399 -01-16T13:52:30 Vini Louis is a 53 year old malePt is wanting to check status and discuss sleep study results.Please advise, thank you 53942-6Httimtpoy encounter MnnxZY8974-58-69M56:53:22Telephone encounter NoteTXT1.2.840.737968.1.13.104.2.7 .2.567556|[id number] for patient iyis94087-6SqtdXINVXETGBEUQnpjcwlh d C-CDA narrative xfcc960572054Fsxek [id number] 09PBNZXREQQCKSTJNDSBUDKD7606-55-87 T13:53:221.2.840.336278.1.72.3.15| 1.2.840.435119.1.13.104.2.7.2.7278 [id number] Aaron Beasley [facility] 2023-10-18 06:51:09 uP4W0IJOMgvH/0g80fc3 jn1v8JniAkPwLA rcYEKZlh6pCIi+pr1XJilpjWo4gsnZ6603 -01-08T06:51:09 Vini Louis is a 53 year old malePt is requesting Sleep Study Results. Thanks 48808-2Fhsalmfel encounter TryqIA5693-95-65F07:52:15Telephone encounter NoteTXT1.2.840.482533.1.13.104.2.7 .2.422197|[id number] for patient ufbf56803-7JcqeSWPDLOMYQCYIucoikgx d C-CDA narrative vghw983517120Jtgylqg M Ray[id number] 71LHPRHDTKULLVGXKGFVBUYB1289-19-90 T06:52:151.2.840.129325.1.72.3.15| 1.2.840.270499.1.13.104.2.7.2.7278 [id number] Cheyenne De Luna [facility] 2023-10-13 12:09:39 +XKLkOw06t4nY0Dk5HK+ VNWlKhqtKkDnmZ 3vWaTJXMICwrfchcRHQfOF78RvsNAa5917 T12:09:39 Duplicate request 70131-4Phzereqef encounter TukvVT1973-08-59Q64:10:52Telephone encounter NoteTXT1.2.840.766464.1.13.104.2.7 .2.595247|[id number] for patient xqtm55959-1ZntvHIACJQDKMUHBseknisk d C-CDA narrative kxgl674805093Aqquwe J Vela RN[address] FpjlZzlhaqdfmIvsfgalypUDBT95555763 85VOFLPHSJCSIEPECNFTTLQH3066-21-36 T12:10:521.2.840.243622.1.72.3.15| 1.2.840.058262.1.13.104.2.7.2.7278 [id number] Lauryn Oakes RN [facility]"
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
[2023-12-05 02:48] VITALS: BP 120/97; TEMP 98.1; O2SAT 97
--- NOTE | 2023-12-05 19:34 | RAD REPORT ---
EXAM DESCRIPTION: CT - Head C Spine Mpr Wo Con - 12/05/2023 6:21 am CLINICAL HISTORY: TRAUMA TECHNIQUE: Axial computed tomography images of the head/brain and cervical spine without intravenous contrast. Sagittal and coronal reformatted images were created and reviewed. This CT exam was pe rformed using one or more of the following dose reduction techniques: automated exposure control, a djustment of the mA and/or kV according to patient size, and/or use of iterative reconstruction techn ique. COMPARISON: No relevant prior studies available. FINDINGS: Brain: Unremarkable. No hemorrhage. No significant white matter disease. No edema. Ventricles: Unremarkable. No ventriculomegaly. Skull: Remote left orbital floor, left medial orbital wall and bilateral nasal bone fracture deform ities. No acute fracture. The left mandibular condyle is mildly anteriorly subluxed relative to the f silverio. Sinuses: Unremarkable as visualized. No acute sinusitis. Mastoid air cells: Unremarkable as visualized. No mastoid effusion. Vertebrae: No acute fracture or subluxation. Discs/spinal canal/neural foramina: Multilevel degenerative changes manifested by mild to moderate disc degeneration most pronounced at C6-C7, prominent anterior and lateral disc osteophytes, small ce ntral disc bulges with posterior disc osteophyte complex and mild facet arthropathy. No canal stenosi s. Soft tissues: Multifocal soft tissue contusions bilaterally. Skin brian in the right posterior pa rietal region. Vasculature: There is atherosclerotic disease of the internal carotid arteries bilaterally. IMPRESSION: 1. No acute intracranial or extra-axial abnormality. 2. No acute cervical spine injury. 3. Other findings as above. Electronically signed by: Zaid Mccrary MD 12/05/2023 02:08 AM [facility] Due to temporary technical issues with the PACS/Fluency reporting system, reports are being signed by the in house radiologists without review as a courtesy to insure prompt reporting. The interpreting radiologist is fully responsible for the content of the report.
== END ==
LOC: ER 00:24
DX: S01.01XA Laceration without foreign body of scalp, initial encounter (principal); S01.81XA Laceration without foreign body of other part of head, initial encounter; I10 Essential (primary) hypertension; I50.9 Heart failure, unspecified; Z79.82 Long term (current) use of aspirin
CPT/HCPCS: 70450; 72125; 99285